=== PATIENT | female | born 1960 | race Caucasian/White ===

== ENCOUNTER 2019-12-28 13:43 | Outpatient (REF) | payer MEDICAID, SELFPAY ==
--- NOTE | 2019-12-29 10:30 | MHC.AU.P13 ---
Adult Audiological Evaluation Date of Visit: 12/28/19 Reason for Appointment: Patient has history of hearing loss. Her most recent evaluation on 04/13/2017 revealed normal/borderline hearing sloping to moderate sensorineural hearing loss bilaterally. Patient suspects there has been a change in hearing since her last evaluation. Ear History: Recent Ear Drainage: None Reported Recent Ear Pain: None Reported Family History of Hearing Loss?: Yes: Mother and Father History of occupational noise exposure?: No Medical History: Medical History: Degenerative Discs Hearing Instrument History- Right Ear: Crop Farm Helper: Phonak Model: Gigaom V50-M Serial Number: [id number] Battery Size: 312 Warranty: 09/07/2017 Dispensed By: [facility] Date of Fittin06/25/2015 Hearing Instrument History- Left Ear: Crop Farm Helper: [employer] Model: Gigaom V50-M Serial Number: [id number] Battery Size: 312 Warranty: 09/07/2017 Dispensed By: [facility] Date of Fittin06/25/2015 Otoscopy: Right Ear: Unremarkable Left Ear: Unremarkable Tympanometry: Right Ear: Normal Middle Ear System (Type A) Left Ear: Normal Middle Ear System (Type A) Hearing Evaluation: Transducer(s) Used: Insert Earphones, Bone Conduction Method: Conventional Audiometry Stimuli Used: Pure Tones Right Ear: Description of Hearing: Normal/borderline sloping to moderately-severe sensorineural hearing loss Left Ear: Description of Hearing: Normal/borderline sloping to moderately-severe sensorineural hearing loss Speech Recognition Threshold (SRT): Method Used: Recorded Lists Stimuli Used: Spondee Words Right Ear: 25 dBHL Left Ear: 25 dBHL Word Discrimination: Method: Recorded Lists Word Lists Used: NU-6 Right Ear: 96% at 65 dBHL Left Ear: 92% at 65 dBHL Most Comfortable Level (MCL): Right Ear: 65 dBHL Left Ear: 65 dBHL Comparison: Compared to the most recent evaluation: No significant changes in hearing Recommendations: Audiological re-evaluation in one year. Hearing aid maintenance as needed. Diagnosis: Primary Diagnosis: H90.3 Bilateral Sensorineural Hearing Loss Services Performed: Services Performed: Comprehensive Audiological Evaluation (CPT 78810) Tympanometry (CPT 21369) Signature: Provider: Dilcia Frankel, [facility]
== END 2019-12-28 13:44 | disposition home or self-care (01) ==
LOC: HO.SH 13:43
PROVIDERS: PCP Pediatrics; Referring Provider Pediatrics; Visit Provider Pediatrics
DX: H90.3 Sensorineural hearing loss, bilateral (principal)
CPT/HCPCS: 92557; 92567

== ENCOUNTER → 2021-09-04 14:03 | Outpatient (REF) | payer OTHER, SELFPAY ==
--- NOTE | 2021-09-04 14:10 | ECG_ITS ---
Hook-up date: 2021-09-04 13:24:00 Duration: 40:43:00 Test Indications: SYNCOPE COLLAPSE Medications: [id number] QRS complexes 1 Ventricular ectopics which represent <1 % of total QRS comp. 114 Supraventricular ectopics which represent <1 % of total QRS comp. * Paced QRS complexs which represent % of total QRS comp. VENTRICULAR ECTOPY 1 Isolated 0 Bigeminal Cycles 0 Couplets 0 Runs 0 Beats in Runs * Beats LONGEST at * BPM at :: -- * Beats FASTEST at * BPM at :: -- SUPRAVENTRICULAR ECTOPY 73 Isolated 5 Couplets 7 Runs 31 Beats in Runs 7 Beats LONGEST at 141 BPM at 23:03:53 2021-09-04 6 Beats FASTEST at 192 BPM at 15:51:49 2021-09-04 HEART RATES 63 MIN at 09:21:56 2021-09-05 81 AVG 127 MAX at 15:21:36 2021-09-04 LONGEST RR 1.0640 secs at 09:07:59 2021-09-05 S-T LEVELS Channel 1 - 128 mm at 13:24:00 2021-09-04 - 128 mm at 13:24:00 2021-09-04 Channel 2 - 128 mm at 13:24:00 2021-09-04 - 128 mm at 13:24:00 2021-09-04 Channel 3 - 128 mm at 03:24:31 -- - 128 mm at 03:24:31 Basic rhythm Normal sinus rhythm No long pause or profound bradycardia Rare Premature atrial complexes No dangerous dysrhythm periods Patient did not report any symptoms in the diary Referred By: Alyssa Campo Overread By: ANDRE AHN MD
== END ==
LOC: HO.CARD 14:03
PROVIDERS: PCP Pediatrics; Visit Provider Pediatrics
DX: R55 Syncope and collapse (principal)
CPT/HCPCS: 93226

== ENCOUNTER 2022-04-27 23:04 | Emergency (ER) | payer OTHER, SELFPAY ==
--- NOTE | ~2022-04-27 | CT_ITS ---
EXAMINATION: NONCONTRAST HEAD CT NONCONTRAST CERVICAL SPINE CT INDICATION INFORMATION: Trauma COMPARISON: None TECHNIQUE: Separate noncontrast CT examinations of the head and cervical spine were performed. Coronal and sagittal images were created for each examination at the technologist workstation. This CT examination was performed using dose optimization techniques as appropriate, variously including the following: *Automated exposure control *Adjustment of mA and/or kV according to patient size (this includes techniques or standardized protocols for targeted exams where dose is matched to indication/reason for exam; i.e. extremities or head) *Use of iterative reconstruction technique DLP: 941 mGy-cm FINDINGS: Head: There is no evidence of acute intracranial hemorrhage or territorial infarction. No abnormal mass effect or midline shift is seen. Montesinos to white matter differentiation is well preserved. No extra-axial fluid collections are identified. No hydrocephalus. No significant volume loss. There is no abnormal attenuation within the brain parenchyma. No acute osseous or soft tissue abnormality. The mastoid air cells and visualized portions of the paranasal sinuses are well aerated. Cervical spine: There is anatomic alignment of the vertebral bodies and posterior elements. The atlantoaxial and atlantooccipital articulations are intact. Vertebral body heights are maintained. There is multilevel intervertebral disc space narrowing with endplate osteophyte formation and facet arthropathy. No evidence of acute fracture. No prevertebral soft tissue swelling. Visualized portions of the lung apices are unremarkable. The thyroid gland is unremarkable. CT/CT cervical spine wo IV con IMPRESSION: 1. No acute intracranial finding. 2. No acute fracture or malalignment of the cervical spine. Moderate degenerative change.
--- NOTE | ~2022-04-27 | CT_ITS ---
EXAMINATION: NONCONTRAST HEAD CT NONCONTRAST CERVICAL SPINE CT INDICATION INFORMATION: Trauma COMPARISON: None TECHNIQUE: Separate noncontrast CT examinations of the head and cervical spine were performed. Coronal and sagittal images were created for each examination at the technologist workstation. This CT examination was performed using dose optimization techniques as appropriate, variously including the following: *Automated exposure control *Adjustment of mA and/or kV according to patient size (this includes techniques or standardized protocols for targeted exams where dose is matched to indication/reason for exam; i.e. extremities or head) *Use of iterative reconstruction technique DLP: 941 mGy-cm FINDINGS: Head: There is no evidence of acute intracranial hemorrhage or territorial infarction. No abnormal mass effect or midline shift is seen. Montesinos to white matter differentiation is well preserved. No extra-axial fluid collections are identified. No hydrocephalus. No significant volume loss. There is no abnormal attenuation within the brain parenchyma. No acute osseous or soft tissue abnormality. The mastoid air cells and visualized portions of the paranasal sinuses are well aerated. Cervical spine: There is anatomic alignment of the vertebral bodies and posterior elements. The atlantoaxial and atlantooccipital articulations are intact. Vertebral body heights are maintained. There is multilevel intervertebral disc space narrowing with endplate osteophyte formation and facet arthropathy. No evidence of acute fracture. No prevertebral soft tissue swelling. Visualized portions of the lung apices are unremarkable. The thyroid gland is unremarkable. CT/CT head/brain wo IV con IMPRESSION: 1. No acute intracranial finding. 2. No acute fracture or malalignment of the cervical spine. Moderate degenerative change.
[2022-04-27 23:05] VITALS: BP 107/72; PULSE 98; RESP 18; TEMP 36.6; O2SAT 98; BMI 23.7
--- NOTE | 2022-04-28 00:11 | ECG_ITS ---
Test Reason : cp Blood Pressure : / mmHG Vent. Rate : 062 BPM Atrial Rate : 062 BPM P-R Int : 132 ms QRS Dur : 074 ms QT Int : 398 ms P-R-T Axes : 042 042 061 degrees QTc Int : 403 ms Normal sinus rhythm Normal ECG When compared with ECG of 05-JUN-2003 06:50, T wave inversion no longer evident in Inferior leads Referred By: Skinny Montero Electronically Signed By:ANDRE AHN MD
--- NOTE | 2022-04-28 00:19 | ED.GENADULT ---
HPI - General Adult General Chief complaint: Head Injury Stated complaint: Fall/Head inj Time Seen by Provider: 04/27/22 23:58 Source: patient and RN notes reviewed Mode of arrival: ambulatory Limitations: no limitations History of Present Illness HPI narrative: 62-year-old female presents for evaluation of a head injury. Patient reports that around 11 hours ago she lost her balance and fell. Patient reports that she is generally fairly unsteady on her feet. She reports that she was in her blood his kitchen and struck the back of her head. She did not lose consciousness She reports when she fell [place] blood in the ground and she tried to clean the area herself but it would not stop bleeding for a couple of hours. She reports that she tried to go to Urgent Care but was told that she could not be seen at urgent care and to go to the emergency room. The patient then went home because ?I had some projects to do. ? She now presents to the emergency room due to the wound in the back of her head. She complains of a dull headache. Denies any nausea, vomiting, dizziness Related Data Allergies Allergy/AdvReac Type Severity Reaction Status Date / Time amoxicillin [AMOXICILLIN] Allergy Unknown RASH Verified 04/27/22 23:12 doxycycline [DOXYCYCLINE] Allergy Unknown RASH Verified 04/27/22 23:12 Doxycycline Hyclate Allergy Unknown Unknown Uncoded 04/27/22 23:12 Review of Systems Constitutional: Constitutional: Reports as per HPI, Denies chills, Denies fatigue, Denies fever(s) and Reports headache(s) ENT: Reports headache(s) Cardiovascular: Cardiovascular: Denies chest pain and Denies dyspnea Respiratory: Respiratory: Denies cough and Denies dyspnea Gastrointestinal: Gastrointestinal: Denies abdominal pain, Denies constipation and Denies vomiting Genitourinary: Genitourinary: Denies dysuria Neurologic: Reports headache(s) and Denies focal weakness Endocrine: Endocrine: Denies fatigue PMFSH Social History Social History Advance Directives: No Advance Directives Information Provided: No Physical Exam ED Vital Signs: Vital Signs - 24 hr 04/27/22 23:05 Temperature 97.9 F Pulse Rate 98 Respiratory Rate 18 Blood Pressure 107/72 Pulse Oximetry 98 Oxygen Delivery Method Room Air BMI result Body Mass Index 23.7 Const General: healthy appearing, comfortable, no acute distress, alert and awake Nutritional Appearance: well nourished Orientation/consciousness: patient oriented x3 HENTX Head: Yes normocephalic and Yes atraumatic Throat: Yes posterior oropharynx normal Eyes Eyelids: Yes eyelids normal Conjunctivae: conjunctivae normal Sclerae: sclerae normal Corneas: corneas normal Pupils: Equal, round and reactive pupils present EOM: EOMs intact bilaterally Neck Other: No cervical tenderness Neck: Yes full ROM Resp Effort & Inspection: normal respiratory effort, able to speak in complete sentences, no audible wheezes and not labored Auscultation: clear to auscultation bilaterally Cardio Rate: regular rate Rhythm: regular rhythm Skin Other: 5 cm linear posterior scalp laceration General skin exam: no rashes or lesions noted and elasticity normal Neuro General: patient oriented x3 Cranial nerves: Yes CN's II-XII intact bilaterally, Yes Equal, round and reactive pupils present and Yes Bilaterally intact EOM present Cognition (Neuro): normal cognition Motor exam (neuro): 5/5 motor strength present throughout Coordination: [id number] test normal Extrem Other: Moving all extremities well without any obvious deformities Medications Administered Discontinued Medications Generic Name Dose Route Start Last Admin Trade Name Khurram PRN Reason Stop Dose Admin Acetaminophen 650 mg 04/28/22 00:18 04/28/22 00:54 Acetaminophen 325 Mg Tablet PO 04/28/22 00:19 650 mg ONCE ONE Administration Lidocaine HCl 5 ml 04/28/22 00:11 04/28/22 00:55 Lidocaine Hcl 1 % Mpf 5 Ml Vial INFILTRATI 04/28/22 00:12 5 ml ONCE ONE Administration Procedures Laceration Laceration 1: Site: scalp (Posterior) Side (If applicable): left Size (cm): 5 Description: linear Depth: simple, single layer Local Anesthetic: lidocaine 1% Amount of anesthesia used (mL): 4 Pre-repair: wound explored and irrigated extensively Skin layer closed with: other (9 skin jennifer) Medical Decision Making Medical Decision Making MDM Narrative: 62-year-old female presents for evaluation after a fall that happened 11 hours ago. She denies any chest pain, shortness of breath leading to her fall. However she also denies tripping. She reports a history of falling due to ?losing my bowel pain? we will check basic labs, EKG and CT scan of the brain. Patient's wound was cleaned and will be closed with surgical jennifer. Differential Diagnosis Laceration Head trauma Concussion Intracranial hemorrhage Calvarial fracture Arrhythmia Vertigo Dehydration Lab Data [facility] Lab Attestation statement: I reviewed the patient's lab results. No significant lab abnormality 04/28/22 00:26 04/28/22 00:26 Labs: Lab Results 04/28/22 04/28/22 Range/Units 00:26 00:26 WBC 7.5 (4.8-10.8) X10*3/uL RBC 3.99 L (4.20-5.50) X10*6/uL Hgb 12.6 (12.0-16.0) g/dl Hct 38.5 (37.0-47.0) % MCV 96.5 (80.0-98.0) fL MCH 31.6 (27.0-33.0) pg MCHC 32.7 (31.0-35.0) g/dl RDW 13.1 (11.0-16.0) % Plt Count 225 (160-400) X10*3/uL MPV 10.1 (9.4-12.3) fL Immature Gran % (Auto) 0.1 (0.0-0.4) % Neut % (Auto) 70.4 (45-73) % Lymph % (Auto) 17.5 L (20-40) % [place] % (Auto) 8.5 (2-11) % Eos % (Auto) 2.7 (0-4) % Baso % (Auto) 0.8 (0-2) % Lymph # (Auto) 1.3 (1.2-4.9) X10*3/uL [place] # (Auto) 0.6 (0.1-1.2) X10*3/uL Eos # (Auto) 0.2 (0.0-0.4) X10*3/uL Baso # (Auto) 0.1 (0.0-0.2) X10*3/uL Abs Immat Gran (auto) 0.01 (0.00-0.03) X10*3/uL Absolute Neuts (auto) 5.3 (2.0-8.3) x10*3/uL Absolute Nucleated RBC 0.000 (0.0-0.012) X10*3/uL Nucleated RBC % (auto) 0.0 (0.0-0.2) /100WBC Sodium 144 (135-145) mmol/L Potassium 4.5 (3.3-5.1) mmol/L Chloride 104 (96-108) mmol/L Carbon Dioxide 29 (22-29) mmol/L Anion Gap 16 (12-20) BUN 11 (9-16) mg/dL Creatinine 0.74 (0.5-1.4) mg/dL Estim Creat Clear Calc 63.5 Estimated GFR > 60 Random Glucose 111 (60-115) mg/dL Calcium 9.4 (8.4-10.2) mg/dL Total Bilirubin 0.2 (0.0-1.0) mg/dL AST 20 (5-31) U/L ALT 11 (0-31) U/L Alkaline Phosphatase 75 (39-117) U/L Total Protein 6.0 L (6.5-8.0) g/dL Albumin 3.8 (3.5-5.0) g/dL Radiology Impression Discussion of test interpretation with radiology: I have reviewed the radiologist's reading. Radiologist Impression: No acute traumatic injury of the cervical spine or head/brain Discharge Plan Discharge Clinical Impression: Laceration of head Patient Disposition: Home, Self-Care Instructions: Head Laceration (ED) Additional Instructions: You had 9 jennifer placed today. Keep the wound clean and dry These can be removed in 7-10 days You can have that done here or by following up with your primary doctor Your blood work in the emergency department was reassuring. Your CAT scans did not show any evidence of injury
[2022-04-28 00:29] LABS: MANUAL DIFF FLAG NO
[2022-04-28 00:31] LABS: Basophils Absolute Auto 0.1 X10*3/uL (0.0-0.2); Basophils Percent Auto 0.8 % (0-2); Eosinophils Absolute Auto 0.2 X10*3/uL (0.0-0.4); Eosinophils Percent Auto 2.7 % (0-4); Hematocrit 38.5 % (37.0-47.0); Hemoglobin 12.6 g/dl (12.0-16.0); Imm Gran Abs Auto 0.01 X10*3/uL (0.00-0.03); Imm Gran Pct Auto 0.1 % (0.0-0.4); Lymphocytes Absolute Auto 1.3 X10*3/uL (1.2-4.9); Lymphocytes Percent Auto 17.5 % (20-40); Mean Corpuscular HGB Conc 32.7 g/dl (31.0-35.0); Mean Corpuscular Hemoglobin 31.6 pg (27.0-33.0); Mean Corpuscular Volume 96.5 fL (80.0-98.0); Mean Platelet Volume 10.1 fL (9.4-12.3); Monocytes Absolute Auto 0.6 X10*3/uL (0.1-1.2); Monocytes Percent Auto 8.5 % (2-11); Neutrophils Absolute Auto 5.3 x10*3/uL (2.0-8.3); Neutrophils Percent Auto 70.4 % (45-73); Platelet Count 225 X10*3/uL (160-400); Red Blood Count 3.99 X10*6/uL (4.20-5.50); Red Cell Distribution Width 13.1 % (11.0-16.0); White Blood Count 7.5 X10*3/uL (4.8-10.8)
[2022-04-28 00:47] LABS: Alanine Aminotransferase 11 U/L (0-31); Albumin Level 3.8 g/dL (3.5-5.0); Alkaline Phosphatase 75 U/L (39-117); Anion Gap 16 (12-20); Aspartate Amino Transferase 20 U/L (5-31); Bilirubin Total 0.2 mg/dL (0.0-1.0); Blood Urea Nitrogen 11 mg/dL (9-16); Calcium 9.4 mg/dL (8.4-10.2); Carbon Dioxide 29 mmol/L (22-29); Chloride 104 mmol/L (96-108); Creatinine Clr Calc Pharmacy 63.5; Estimated Glomerular Filt Rate > 60; Glucose Random 111 mg/dL (60-115); Potassium 4.5 mmol/L (3.3-5.1); Sodium 144 mmol/L (135-145)
[2022-04-28] MEDS: Acetaminophen 325 MG TABLET 650 MG PO (00:54)
[2022-04-28] MEDS: Lidocaine HCl 1 % MPF 5 ML VIAL INFILTRATI (00:55)
--- NOTE | 2022-04-28 01:20 | PC.NURSE ---
9 jennifer placed to back of head by provider. patient tolerated well
== END 2022-04-28 01:29 | disposition home or self-care (01) ==
PROVIDERS: Emergency Provider Emergency Medicine Emergency Medical Services; PCP Pediatrics
DX: S09.90XA Unspecified injury of head, initial encounter (principal); S01.01XA Laceration without foreign body of scalp, initial encounter; W19.XXXA Unspecified fall, initial encounter; Y93.9 Activity, unspecified; Y92.9 Unspecified place or not applicable; Y99.9 Unspecified external cause status
CPT/HCPCS: 12002; 36415; 70450; 72125; 80053; 85025; 93005; 99283; 99284

== ENCOUNTER → 2022-06-26 14:56 | Outpatient (REF) | payer OTHER, SELFPAY ==
--- NOTE | 2022-06-26 14:59 | CA_ITS ---
Transthoracic Echocardiogram Patient (Last, First, Middle): Chantal Alvares B Gender: Female Date of : 1960 Age: 62 Procedure Date: 06/26/2022 Procedure Type: Transthoracic Echocardiogram Location: OP Height: 162.56 cm Weight: 61.69 kg BSA: 1.66 m2 Heart Rate: bpm BP: 108 / 70 mmHg Electronic Plotting System Operator: MAURISIO Referring MD: Alyssa Campo MD Symptoms: [id number] SYNCOPE Study Quality: Adequate ECG Rhythm: Sinus Conclusions: - The left ventricular systolic function is normal. The calculated ejection fraction is 61% by biplane method. - No obvious valvular pathology seen on this study. - There is mild dilatation of the ascending aorta measuring 3.70 cm. Findings Left Ventricle Normal left ventricular cavity size. There is normal left ventricular wall thickness. The left ventricular systolic function is normal. The calculated ejection fraction is 61% by biplane method. There is no evidence of regional wall motion abnormalities. Diastolic function is normal for age. LV peak GLS -18.7%. Right Ventricle Normal right ventricular cavity size and systolic function. Atria Both atria are normal in size. Aortic Valve There is a normal trileaflet aortic valve. There is no aortic valve stenosis. There is no aortic valve regurgitation. Mitral Valve The mitral valve appears normal. There is no mitral valve regurgitation. There is no mitral valve stenosis. Pulmonic Valve The pulmonic valve is likely normal. Tricuspid Valve Normal tricuspid valve structure. There is mild tricuspid valve regurgitation. There is no evidence of pulmonary hypertension. Great Vessels There is mild dilatation of the ascending aorta measuring 3.70 cm. Venous The inferior vena cava is normal in size and collapses greater than 50% with inspiration. Pericardium/Pleural There is no evidence of pericardial effusion. Prior Study Comparison No significant change compared to prior study dated: 06/05/2003. Ascending aortic size not previously described. Recommendations, Care & Conclusions No obvious valvular pathology seen on this study. Measurements 2D Linear Measurements IVSd: 0.91 0.6-0.9/0.6-1.0 cm LVIDd: 3.95 3.9-5.3/4.2-5.9 cm LVIDd Index: 2.38 2.4-3.2/2.2-3.1 cm/m2 LVIDs: 2.63 2.0-3.6 cm LVPWd: 0.93 0.7-1.1 cm LA Diam: 2.60 2.7-3.8/3.0-4.0 cm LAIDs Index: 1.57 1.5-2.3 cm/m2 LV Mass: 137.98 67-162/88-224 g LV Mass Index: 83.12 43-95/49-115 g/m2 LVOT Diam: 2.10 3.0+(-)1.3 cm 2D Systolic Function EF 4C: 61.90 >55% EF 2C: 61.40 >55% EF BiP: 60.60 >55% Mitral Valve MV Pk E: 0.67 MV PK A: 0.70 MV Decel Time: 224.00 E/A: 1.00 E'Lateral: 11.90 E'Medial: 6.09 E/E' Med: 11.10 E/E' Lat: 5.70 PHT: 66.00 MVA PHT: 3.33 Decel [place]: 3.00 Aortic Valve AoV Pk Jacek: 1.25 AoV Mn Jacek: 0.94 AoV VTI: 0.29 AoV Pk Grad: 6.00 Aov Mn Grad: 4.00 PHAM Cont.VTI: 2.84 LVOT LVOT Pk Jacek: 1.22 LVOT Mn Jacek: 0.76 LVOT VTI: 0.24 LVOT Pk Grad: 6.00 LVOT Mn Grad: 3.00 LVOT Diam: 2.10 LVOT Area: 3.46 Diastolic Function MV Pk E: 0.67 MV Pk A: 0.70 E/A: 1.00 E'Medial: 6.09 E/E' Med: 11.10 E' Laterial: 11.90 E/E' Lat: 5.70 Right Ventricle TAPSE (mm): 20.00 TVS' Jacek: 13.10 Tricuspid Valve TR Pk Jacek: 1.90 TR Pk Grad: 14.00 RA Press: 3.00 RVSP: 17.00 Great Vessels Aorta Sinus of Valsalva: 3.28 2.0-3.[address] [place]: 3.15 1.7-3.4 cm Ao Asc: 3.70 2.1-3.4 cm Updated in Other Vendor System with Status of Final Jose David García MD electronically signed on 06/26/2022 4:24:18 PM with status of Final
== END ==
LOC: HO.CARD 14:56
PROVIDERS: PCP Pediatrics; Visit Provider Pediatrics
DX: R55 Syncope and collapse (principal)
CPT/HCPCS: 93306; 93356

== ENCOUNTER 2022-10-27 04:30 | Emergency (ER) | payer OTHER, SELFPAY ==
--- NOTE | ~2022-10-27 | CT_ITS ---
EXAMINATION: CT HEAD WITHOUT CONTRAST CT CERVICAL SPINE WITHOUT CONTRAST CLINICAL INFORMATION: Fall. Pain. COMPARISON: None available. TECHNIQUE: Contiguous axial imaging was performed from the skull base to vertex without intravenous administration of contrast. This CT examination was performed using dose optimization techniques as appropriate, variously including the following: *Automated exposure control *Adjustment of mA and/or kV according to patient size (this includes techniques or standardized protocols for targeted exams where dose is matched to indication/reason for exam; i.e. extremities or head) *Use of iterative reconstruction technique DLP: 883 mGy-cm FINDINGS: The lateral, third and fourth ventricles are normally outlined. The cortical sulci and basal cisterns are normally outlined as well. There is no acute territorial, hemorrhage or midline shift. The extra-axial spaces are unremarkable. Calvarium: Intact. There is apparent left forehead mild soft tissue swelling and laceration. Maxillofacial sinuses and mastoids: Clear as visualized. Cervical spine: There is reversal of the expected cervical spine curvature. There is moderate cervical disc degenerative change seen at C3-C4, C5-C6 and C6-C7 and mild degenerative change of the remaining cervical spine with loss of disc space, endplate change and posterior osteophytes associated with facet osteoarthritic hypertrophic change with multilevel mild spinal canal and neuroforaminal narrowing. There is no fracture. The soft tissues are unremarkable. The upper lung stephenson are clear. CT/CT head/brain wo IV con IMPRESSION: No acute intracranial abnormality. Cervical disc degenerative change with reversal of the expected cervical spine curvature. No fracture seen.
--- NOTE | ~2022-10-27 | CT_ITS ---
EXAMINATION: CT HEAD WITHOUT CONTRAST CT CERVICAL SPINE WITHOUT CONTRAST CLINICAL INFORMATION: Fall. Pain. COMPARISON: None available. TECHNIQUE: Contiguous axial imaging was performed from the skull base to vertex without intravenous administration of contrast. This CT examination was performed using dose optimization techniques as appropriate, variously including the following: *Automated exposure control *Adjustment of mA and/or kV according to patient size (this includes techniques or standardized protocols for targeted exams where dose is matched to indication/reason for exam; i.e. extremities or head) *Use of iterative reconstruction technique DLP: 883 mGy-cm FINDINGS: The lateral, third and fourth ventricles are normally outlined. The cortical sulci and basal cisterns are normally outlined as well. There is no acute territorial, hemorrhage or midline shift. The extra-axial spaces are unremarkable. Calvarium: Intact. There is apparent left forehead mild soft tissue swelling and laceration. Maxillofacial sinuses and mastoids: Clear as visualized. Cervical spine: There is reversal of the expected cervical spine curvature. There is moderate cervical disc degenerative change seen at C3-C4, C5-C6 and C6-C7 and mild degenerative change of the remaining cervical spine with loss of disc space, endplate change and posterior osteophytes associated with facet osteoarthritic hypertrophic change with multilevel mild spinal canal and neuroforaminal narrowing. There is no fracture. The soft tissues are unremarkable. The upper lung stephenson are clear. CT/CT cervical spine wo IV con IMPRESSION: No acute intracranial abnormality. Cervical disc degenerative change with reversal of the expected cervical spine curvature. No fracture seen.
[2022-10-27 04:39] VITALS: BP 133/85; PULSE 77; RESP 18; TEMP 36.4; O2SAT 98; BMI 22.5
[2022-10-27 05:20] VITALS: BP 124/77; PULSE 67; RESP 14; TEMP 36.6; O2SAT 99
--- NOTE | 2022-10-27 05:20 | PC.NURSE ---
Pt ca&ox4, no signs of distress. Pt reports 7/10 head and body pain. Pt has approximately a 1 laceration on forehead. Vitals stable. Pt denies LOC, N/V/dizziness. Plan of care ongoing.
--- NOTE | 2022-10-27 06:55 | ED.HEATRA ---
HPI - Head Injury General Chief complaint: Head Injury Stated complaint: Fall/Head Inj Time Seen by Provider: 10/27/22 06:37 Source: patient, RN notes reviewed and old records reviewed Mode of arrival: ambulatory History of Present Illness HPI Narrative: 62 year old female with no significant past medical history presenting to the ED complaining of facial laceration s/p mechanical trip and fall around 03:00AM. States tripped and fell over something in the garage while she was looking for cat that she accidentally let out. + head trauma, denies LOC or taking anticoagulation. Ambulatory at scene. Reports diffuse myalgias, nonfocal. Denies neck /back pain, abdominal pain, CP/ SOB, nausea/ vomiting. Denies symptoms prior to fall. Tetanus 8 years ago MD Complaint: head injury Related Data Allergies Allergy/AdvReac Type Severity Reaction Status Date / Time amoxicillin [AMOXICILLIN] Allergy Unknown RASH Verified 10/27/22 04:39 doxycycline [DOXYCYCLINE] Allergy Unknown RASH Verified 10/27/22 04:39 Doxycycline Hyclate Allergy Unknown Unknown Uncoded 10/27/22 04:39 Review of Systems Review of Systems: Constitutional: No Fever, No Chills, No Fatigue, No Malaise ENT/Mouth: No Ear Pain, No Nasal Congestion, No sore throat, No Rhinorrhea, No Swallowing Difficulty Eyes: No Eye Pain, No Swelling, No Redness, No Vision Changes Cardiovascular: No Chest Pain, No SOB, No Edema, No Palpitations Respiratory: No Cough, No Sputum, o Dyspnea Gastrointestinal: No Nausea, No Vomiting, No Diarrhea, No Constipation, No Abdominal pain Genitourinary: No Dysuria, No Urinary Frequency, No Hematuria Musculoskeletal: No joint pain, No Myalgias, No Joint Swelling Skin: No Skin Lesions, No rash Neuro: No Weakness, No Loss of Consciousness, No Dizziness, + Headache Yes all other systems are reviewed and are negative Constitutional: Constitutional: Reports as per HPI Neurologic: Denies Abnormal speech present [facility] Past Medical History Attestation statement: The following information was validated with the patient. Source: old records reviewed Social History Social History Smoked in Last 30 Days: No Use of substances other than those prescribed or required for medical reasons: No Advance Directives: No Advance Directives Information Provided: No Physical Exam Vital Signs: Vital Signs: Last Vital Signs Temp 97.7 F 10/27/22 07:07 Pulse 94 10/27/22 07:07 Resp 18 10/27/22 07:07 BP 122/89 10/27/22 07:07 Pulse Ox 98 10/27/22 07:07 O2 Del Method Room Air 10/27/22 07:07 BMI result Body Mass Index 22.5 Const: General: cooperative, healthy appearing and no acute distress Orientation/consciousness: patient oriented x3 Limitations: no limitations HEENT: Other: 1cm linear laceration noted to central forehead. Bleeding controlled. Underlying structures appear intact. No palpable step-off Head: Yes normal to inspection, Yes atraumatic, No Garcia's sign and No raccoon eyes Ears: hearing grossly normal bilaterally General nose exam: Normal external nose present Face and sinus: Yes normal facial exam Mouth: Normal oral and palatal mucosa present Throat: Yes posterior oropharynx normal Eyes: General: appearance normal, both eyes and all related structures Pupils: Equal, round and reactive pupils present EOM: EOMs intact bilaterally Neck: Neck: Yes normal visual inspection, Yes no meningeal signs and No anterior neck swelling Resp: Effort & Inspection: normal respiratory effort and no respiratory distress Cardio: Rate: regular rate Heart sounds: S1 normal heart sound present and S2 normal heart sound present GI: Inspection: Yes normal to inspection Palpation (GI): Soft to palpation, nontender, no guarding and not rigid : General: Yes no CVA tenderness Back/Spine/Pelvis: Other: No midline cervical/thoracic/lumbar spinous tenderness/step-off or deformity Back: no CVA tenderness Skin: Rashes: no rashes Wounds: no wounds Neuro: General: patient oriented x3, gait normal, tone normal, moves all extremities, no meningeal signs, no focal motor deficits and CN's II-XI intact bilaterally Cranial nerves: Yes CN's II-XII intact bilaterally and Yes Equal, round and reactive pupils present Cognition (Neuro): normal cognition Speech: No Abnormal speech present Gait exam (Neuro): Normal gait present Extrem: General: Yes normal to inspection Course Course Course Narrative: 0733--CT head/brain wo IV con/CT cervical spine wo IV con IMPRESSION: No acute intracranial abnormality. Cervical disc degenerative change with reversal of the expected cervical spine curvature. No fracture seen. Results discussed with patient including worrisome signs and symptoms and strict return precautions, and when to return to the emergency department. They verbalized understanding and feel safe for discharge at this time. Medications Administered Discontinued Medications Generic Name Dose Route Start Last Admin Trade Name Khurram PRN Reason Stop Dose Admin Diphtheria/Tetanus/Acell Pertussis 0.5 ml 10/27/22 06:54 10/27/22 08:09 Diphth,Pertus(Acell),Tet Adult 0.5 Ml Syringe IM 10/27/22 06:55 Not Given .ONCE ONE Lidocaine HCl 2 ml 10/27/22 06:54 10/27/22 08:10 Lidocaine Hcl 1 % Mpf 2 Ml Vial INFILTRATI 10/27/22 06:55 2 ml ONCE ONE Administration Medical Decision Making Medical Decision Making MDM Narrative: 62 year old female with no significant past medical history presenting to the ED complaining of facial laceration s/p mechanical trip and fall around 03:00AM. On exam vital signs stable, NAD, nontoxic appearing, physical exam as noted above with small laceration to central forehead. No midline spinous tenderness throughout or midline spinous tenderness. Ambulating with steady gait. Concern for laceration vs fracture/ ICH. Lower suspicion for syncope, seizure. plan: Head/ C-spine CT, repair wound, update tetanus Please refer to course for remaining clinical decision making, interpretation of labs/imaging results, and discussions with consultants and/or family members. Differential Diagnosis Differential Diagnoses: The differential diagnosis associated with the presentation includes As above Admission/Observation Consideration of admission/observation: Escalation of care including admission/observation considered Lab Data [facility] Lab Attestation statement: I reviewed the patient's lab results. Independent Interpretation I performed an independent interpretation of an: CT Scan Radiology Impression Discussion of test interpretation with radiology: I have reviewed the radiologist's reading. External Record Review External record reviewed: Inpatient record, Office record, Outpatient record, Prior outpatient labs, Prior outpatient radiology, Primary care record and Outside ED record Tests considered The following testing was considered but not selected: As above Prescription Management I considered prescription management with: Pain Medication Procedures Laceration Laceration 1: Site: face Size (cm): 1 Description: linear Depth: simple, single layer Local Anesthetic: lidocaine 1% Amount of anesthesia used (mL): 1 Pre-repair: wound explored Skin layer closed with: nylon Size (cm): 6-0 Number of sutures: 3 Technique: simple, interrupted Discharge Plan Discharge Clinical Impression: Head injury, Facial laceration Patient Disposition: Home, Self-Care Instructions: Laceration (DC), Head Injury (ED) Additional Instructions: Your wounds were repaired today in the emergency department. Keep dry and clean. You need to return to any emergency department, urgent care, or your PCPs office in 3-5 days for suture removal Apply bacitracin and or Neosporin daily Once sutures are removed apply anti scar cream like Mederma If area begins look infected, is red, there is drainage, streaking, or you have fever please return to the emergency department Referrals: Alyssa Campo MD [Primary Care Provider] - 3 days (3-5 days for suture removal) Interventions: ED Discharge Assessment Last Done: 10/27/22 08:23 Discharge Date/Time: 10/27/22 08:24
--- NOTE | 2022-10-27 07:00 | PC.NURSE ---
Handoff Report given to oncoming RN.
[2022-10-27 07:07] VITALS: BP 122/89; PULSE 94; RESP 18; TEMP 36.5; O2SAT 98
--- NOTE | 2022-10-27 07:12 | PC.NURSE ---
pt a&ox3. respirations even and unlabored. pt reports having 10/10 head pain due to a small laceration on her head from a fall. pt nuero assessment positive.
[2022-10-27] MEDS: Lidocaine HCl 1 % MPF 2 ML VIAL INFILTRATI (08:10)
== END 2022-10-27 08:24 | disposition home or self-care (01) ==
PROVIDERS: Emergency Provider Emergency Medicine Emergency Medical Services; PCP Pediatrics
DX: S01.81XA Laceration without foreign body of other part of head, initial encounter (principal); R51.9 Headache, unspecified; M54.2 Cervicalgia; W01.10XA Fall on same level from slipping, tripping and stumbling with subsequent striking against unspecified object, initial encounter; Y93.9 Activity, unspecified; Y92.9 Unspecified place or not applicable; Y99.9 Unspecified external cause status
CPT/HCPCS: 12011; 70450; 72125; 99284

== ENCOUNTER 2023-09-02 15:17 | Outpatient (REF) | payer OTHER, SELFPAY ==
--- NOTE | ~2023-09-02 | XR_ITS ---
EXAMINATION: XR CHEST CLINICAL INFORMATION: Cough COMPARISON: Chest x-rays of 07/15/2019, 03/11/2010 TECHNIQUE: 2 views of the chest were obtained. FINDINGS: Cardiomediastinal silhouette is stable and normal. No abnormal tracheal deviation. Minimal S-shaped curvature of the thoracic lumbar spine is again noted. Lungs are symmetrically adequately expanded. No focal consolidation, changes of congestion, pleural effusions or pneumothorax are seen. Arthritic changes are noted in the bilateral acromioclavicular articulations. Visualized upper abdomen is unremarkable.. XR/XR chest 2V IMPRESSION: No radiographic evidence of pneumonia. No acute pulmonary process.
[2023-09-02 15:41] LABS: MANUAL DIFF FLAG NO
[2023-09-02 16:02] LABS: Basophils Absolute Auto 0.1 X10*3/uL (0.0-0.2); Basophils Percent Auto 1.2 % (0-2); Eosinophils Absolute Auto 0.2 X10*3/uL (0.0-0.4); Eosinophils Percent Auto 4.1 % (0-4); Hematocrit 39.8 % (37.0-47.0); Hemoglobin 13.2 g/dl (12.0-16.0); Imm Gran Abs Auto 0.01 X10*3/uL (0.00-0.03); Imm Gran Pct Auto 0.2 % (0.0-0.4); Lymphocytes Absolute Auto 1.2 X10*3/uL (1.2-4.9); Lymphocytes Percent Auto 29.9 % (20-40); Mean Corpuscular HGB Conc 33.2 g/dl (31.0-35.0); Mean Corpuscular Hemoglobin 32.2 pg (27.0-33.0); Mean Corpuscular Volume 97.1 fL (80.0-98.0); Mean Platelet Volume 10.2 fL (9.4-12.3); Monocytes Absolute Auto 0.4 X10*3/uL (0.1-1.2); Monocytes Percent Auto 8.5 % (2-11); Neutrophils Absolute Auto 2.3 x10*3/uL (2.0-8.3); Neutrophils Percent Auto 56.1 % (45-73); Platelet Count 238 X10*3/uL (160-400); Red Cell Distribution Width 12.9 % (11.0-16.0); White Blood Count 4.1 X10*3/uL (4.8-10.8)
[2023-09-02 17:08] LABS: Alanine Aminotransferase 10 U/L (0-31); Alkaline Phosphatase 49 U/L (39-117); Anion Gap 12 (12-20); Aspartate Amino Transferase 22 U/L (5-31); Bilirubin Direct 0.1 mg/dL (0.0-0.5); Bilirubin Total 0.6 mg/dL (0.0-1.0); Blood Urea Nitrogen 23 mg/dL (9-16); Calcium 9.4 mg/dL (8.4-10.2); Carbon Dioxide 30 mmol/L (22-29); Chloride 107 mmol/L (96-108); Cholesterol 213 mg/dL (<200); Estimated Glomerular Filt Rate > 60; Glucose Random 90 mg/dL (60-115); HDL Cholesterol 56 mg/dL (>40); LDL Cholesterol Calculated 140 mg/dL (<100); Potassium 4.7 mmol/L (3.3-5.1); Sodium 144 mmol/L (135-145); Total Protein 6.3 g/dL (6.5-8.0); Triglycerides 88 mg/dL (<150)
[2023-09-02 17:15] LABS: TSH reflex Free T4 0.48 uIU/mL (0.32-4.0); Vitamin D 25-OH Total 33.2 ng/mL (>30)
[2023-09-02 17:19] LABS: Vitamin B12 377 pg/mL (200-900)
[2023-09-02 18:13] LABS: Appearance Urine Clear; Color Urine Yellow; Glucose Urine UA Negative (Negative); Leukocyte Esterase Urine Negative (Negative); Nitrite Urine Negative (Negative); PH 8.5 (5.0-9.0); Urine Blood Negative (Negative); Urine Ketones Negative (Negative); Urine Protein Negative (Neg-Trace)
== END 2023-09-02 15:18 | disposition home or self-care (01) ==
LOC: HO.LAB 15:17
PROVIDERS: Absent Provider Pediatrics; PCP Pediatrics; Visit Provider Internal Medicine
DX: H91.93 Unspecified hearing loss, bilateral (principal); F41.1 Generalized anxiety disorder; R05.9 Cough, unspecified; Z20.2 Contact with and (suspected) exposure to infections with a predominantly sexual mode of transmission
CPT/HCPCS: 36415; 71046; 80048; 80061; 80076; 81003; 82306; 82607; 84443; 85025

== ENCOUNTER 2023-10-16 18:54 | Emergency (ER) | payer OTHER, SELFPAY ==
[2023-10-16] VITALS (7 sets, daily range): BP systolic 119–141; BP diastolic 74–90; PULSE 72–90; RESP 16–18; TEMP 36.6–37.1; O2SAT 97–100; BMI 27.0
--- NOTE | ~2023-10-16 | CT_ITS ---
EXAMINATION: CT HEAD WITHOUT CONTRAST CLINICAL INFORMATION: Fall. COMPARISON: Head CT dated 10/27/2022. TECHNIQUE: Contiguous axial imaging was performed from the skullbase to vertex without intravenous administration of contrast. This CT examination was performed using dose optimization techniques as appropriate, variously including the following: *Automated exposure control *Adjustment of mA and/or kV according to patient size (this includes techniques or standardized protocols for targeted exams where dose is matched to indication/reason for exam; i.e. extremities or head) *Use of iterative reconstruction technique DLP: 625 mGy-cm. FINDINGS: There is no evidence of acute intracranial hemorrhage or territorial infarction. No abnormal mass effect or midline shift is seen. Montesinos to white matter differentiation is well preserved. No extra-axial fluid collections are identified. The ventricles are normal in size. There is no abnormal attenuation within the brain parenchyma. The osseous structures and soft tissues are normal. Mild ethmoid sinus mucosal thickening noted. The mastoid air cells are well aerated. CT/CT head/brain wo IV con IMPRESSION: No acute intracranial pathology. Electronically signed by: Huan Carpio MD 10/16/2023 08:48 PM EDT
--- NOTE | 2023-10-16 19:03 | ECG_ITS ---
Test Reason : FALL Blood Pressure : / mmHG Vent. Rate : 072 BPM Atrial Rate : 072 BPM P-R Int : 136 ms QRS Dur : 068 ms QT Int : 384 ms P-R-T Axes : 051 035 049 degrees QTc Int : 420 ms Normal sinus rhythm Normal ECG When compared with ECG of 28-APR-2022 01:09, No significant change was found Referred By: Gardenia Abdul Electronically Signed By:RUTH ANAYA
--- NOTE | 2023-10-16 19:14 | ED.SYNCOPE ---
HPI - Syncope General Chief Complaint: Fall Stated Complaint: SYNCOPE WHILE SHOPPING,+ HEAD STRIKE, -THINNERS Time Seen by Provider: 10/16/23 19:08 Source: patient Mode of arrival: ambulatory Limitations: no limitations History of Present Illness ED Provider: fredy RUFFIN narrative: Patient's history of vasovagal syncope had detailed workup done in the passing including director of medical education neurologist and PCP and diagnose as vasovagal advised to drink plenty of fluids today patient was shopping while in store fell lightheaded slumped down holding the cart and then hit her head to the ground came with slight swelling of the right eyebrow fall was witnessed by a bystander no seizure noticed. Patient is back to normal now Related Data Allergies Allergy/AdvReac Type Severity Reaction Status Date / Time amoxicillin [AMOXICILLIN] Allergy Unknown RASH Verified 10/16/23 19:27 doxycycline [DOXYCYCLINE] Allergy Unknown RASH Verified 10/16/23 19:27 Doxycycline Hyclate Allergy Unknown Unknown Uncoded 10/16/23 19:27 Review of Systems Review of Systems: Yes all other systems are reviewed and are negative [facility] Social History Social History Smoked in Last 30 Days: No Advance Directives: No Advance Directives Information Provided: No Do you have a plan to hurt others: No Plan Physical Exam Vital Signs: Vital Signs: Last Vital Signs Temp 97.8 F 10/16/23 22:06 Pulse 86 10/16/23 22:06 Resp 16 10/16/23 22:06 BP 119/74 10/16/23 22:06 Pulse Ox 100 10/16/23 22:06 O2 Del Method Room Air 10/16/23 22:06 BMI result Body Mass Index 27.0 Appearance: Alert. Oriented X3. No acute distress. Eyes: PERRLA, No Nystagmus EOMI ENT: Pharynx normal. Oral Mucosa moist slight swelling of the right eyebrow Neck: Normal inspection. Neck supple. No midline tenderness CVS: Normal heart rate and rhythm. Pulses normal. Respiratory: No respiratory distress. Equal air entry bilateral, no wheezing/rales/rhonchi Abdomen: Soft and nontender. Bowel sounds are present, no mass palpable, no CVA tenderness Skin: Skin warm and dry. Normal skin color. Normal skin turgor. Extremities: No lower extremity edema. No calf tenderness Neuro: Oriented X 3. No motor deficit. No sensory deficit.No cerebellar signs , cranial nerves II-XII intact Medical Decision Making Medical Decision Making [facility] Narrative: Patient with frequent vasovagal syncope episode with previous cardiac workup normal patient advised to drink plenty of fluids cardiac workup today also negative with normal orthostatic pressures discharge patient home advised to drink plenty of fluids and follow with director of medical education Differential Diagnosis Differential Diagnoses: The differential diagnosis associated with the presentation includes Lab Data [facility] Lab Attestation statement: I reviewed the patient's lab results. 10/16/23 19:32 10/16/23 19:32 Labs: Lab Results 10/16/23 Range/Units 19:32 WBC 5.6 (4.8-10.8) X10*3/uL RBC 4.00 L (4.20-5.50) X10*6/uL Hgb 13.0 (12.0-16.0) g/dl Hct 38.5 (37.0-47.0) % MCV 96.3 (80.0-98.0) fL MCH 32.5 (27.0-33.0) pg MCHC 33.8 (31.0-35.0) g/dl RDW 13.2 (11.0-16.0) % Plt Count 238 (160-400) X10*3/uL MPV 9.8 (9.4-12.3) fL Immature Gran % (Auto) 0.2 (0.0-0.4) % Neut % (Auto) 62.4 (45-73) % Lymph % (Auto) 24.5 (20-40) % Geary % (Auto) 7.4 (2-11) % Eos % (Auto) 4.3 H (0-4) % Baso % (Auto) 1.2 (0-2) % Lymph # (Auto) 1.4 (1.2-4.9) X10*3/uL Geary # (Auto) 0.4 (0.1-1.2) X10*3/uL Eos # (Auto) 0.2 (0.0-0.4) X10*3/uL Baso # (Auto) 0.1 (0.0-0.2) X10*3/uL Abs Immat Gran (auto) 0.01 (0.00-0.03) X10*3/uL Absolute Neuts (auto) 3.5 (2.0-8.3) x10*3/uL Absolute Nucleated RBC 0.000 (0.0-0.012) X10*3/uL Nucleated RBC % (auto) 0.0 (0.0-0.2) /100WBC Sodium 140 (135-145) mmol/L Potassium 4.5 (3.3-5.1) mmol/L Chloride 105 (96-108) mmol/L Carbon Dioxide 28 (22-29) mmol/L Anion Gap 12 (12-20) BUN 13 (9-16) mg/dL Creatinine 0.66 (0.5-1.4) mg/dL Estim Creat Clear Calc 70.3 Estimated GFR > 60 Random Glucose 102 (60-115) mg/dL Calcium 9.8 (8.4-10.2) mg/dL Magnesium 2.3 (1.6-2.6) mg/dL Total Bilirubin 0.2 (0.0-1.0) mg/dL AST 22 (5-31) U/L ALT 13 (0-31) U/L Alkaline Phosphatase 59 (39-117) U/L Troponin I High Sens < 2.7 (<3.5-17.0) ng/L Total Protein 6.3 L (6.5-8.0) g/dL Albumin 3.8 (3.5-5.0) g/dL Independent Interpretation I performed an independent interpretation of an: EKG and CT Scan Interpretation: Normal sinus rhythm heart rate 72 beats per minute normal interval normal axis no acute ST-T changes no acute ischemia Radiology Impression Discussion of test interpretation with radiology: I have reviewed the radiologist's reading. Discharge Plan Discharge Clinical Impression: Vasovagal near syncope Patient Disposition: Home, Self-Care Instructions: Syncope (ED) Additional Instructions: Drink plenty of fluids Follow up with your director of medical education/PCP Interventions: ED Discharge Assessment Last Done: 10/16/23 22:06 Discharge Date/Time: 10/16/23 22:07 Print Language: Korean
[2023-10-16 19:37] LABS: Basophils Absolute Auto 0.1 X10*3/uL (0.0-0.2); Basophils Percent Auto 1.2 % (0-2); Eosinophils Absolute Auto 0.2 X10*3/uL (0.0-0.4); Eosinophils Percent Auto 4.3 % (0-4); Hematocrit 38.5 % (37.0-47.0); Imm Gran Abs Auto 0.01 X10*3/uL (0.00-0.03); Imm Gran Pct Auto 0.2 % (0.0-0.4); Lymphocytes Absolute Auto 1.4 X10*3/uL (1.2-4.9); Lymphocytes Percent Auto 24.5 % (20-40); MANUAL DIFF FLAG NO; Mean Corpuscular HGB Conc 33.8 g/dl (31.0-35.0); Mean Corpuscular Hemoglobin 32.5 pg (27.0-33.0); Mean Corpuscular Volume 96.3 fL (80.0-98.0); Mean Platelet Volume 9.8 fL (9.4-12.3); Monocytes Absolute Auto 0.4 X10*3/uL (0.1-1.2); Monocytes Percent Auto 7.4 % (2-11); Neutrophils Absolute Auto 3.5 x10*3/uL (2.0-8.3); Neutrophils Percent Auto 62.4 % (45-73); Platelet Count 238 X10*3/uL (160-400); Red Cell Distribution Width 13.2 % (11.0-16.0); White Blood Count 5.6 X10*3/uL (4.8-10.8)
[2023-10-16 19:57] LABS: Alanine Aminotransferase 13 U/L (0-31); Albumin Level 3.8 g/dL (3.5-5.0); Alkaline Phosphatase 59 U/L (39-117); Anion Gap 12 (12-20); Aspartate Amino Transferase 22 U/L (5-31); Blood Urea Nitrogen 13 mg/dL (9-16); Calcium 9.8 mg/dL (8.4-10.2); Carbon Dioxide 28 mmol/L (22-29); Chloride 105 mmol/L (96-108); Creatinine Clr Calc Pharmacy 70.3; Estimated Glomerular Filt Rate > 60; Glucose Random 102 mg/dL (60-115); Magnesium 2.3 mg/dL (1.6-2.6); Potassium 4.5 mmol/L (3.3-5.1); Sodium 140 mmol/L (135-145); Total Protein 6.3 g/dL (6.5-8.0)
[2023-10-16 20:03] LABS: Troponin-I High Sensitivity < 2.7 ng/L (<3.5-17.0)
[2023-10-16 20:20] LABS: Bilirubin Total 0.2 mg/dL (0.0-1.0)
== END 2023-10-16 22:07 | disposition home or self-care (01) ==
PROVIDERS: Physician Assistant Medical; Emergency Provider Internal Medicine; PCP Pediatrics
DX: R55 Syncope and collapse (principal)
CPT/HCPCS: 36415; 70450; 80053; 83735; 84484; 85025; 93005; 99284; 99285

== ENCOUNTER → 2023-11-11 13:59 | Outpatient (BNV) | payer OTHER, SELFPAY | PROVIDERS: PCP Pediatrics; Visit Provider Radiology Diagnostic Radiology | DX: R55 Syncope and collapse (principal) | CPT/HCPCS: 70553 ==

== ENCOUNTER 2023-11-11 14:00 | Outpatient (REF) | payer OTHER, SELFPAY ==
--- NOTE | ~2023-11-11 | MR_ITS ---
EXAMINATION: MR BRAIN WITHOUT AND WITH CONTRAST CLINICAL INFORMATION: Multiple syncopal episodes, low blood pressure. Cardiac and stroke workup. 63-year-old female. COMPARISON: No prior MRI. CT head 10/16/2023, 04/28/2022. TECHNIQUE: Multiplanar, multisequence MRI of the brain was obtained before and after the intravenous administration of 6 mL IV Gadavist. Examination performed on a 1.5 Iesha Siemens magnet using standard sequences. FINDINGS: There is no diffusion restriction. There is no intracranial hemorrhage, acute infarction, mass effect, or edema. Ventricles, sulci, and cisterns are normal in size and configuration for patient age. No shift of midline. No abnormal hemosiderin deposition is identified. There are a few scattered punctate and minimally confluent foci of white matter T2 hyperintensity in the periventricular, subcortical, and hemispheric deep white matter, nonspecific, but most likely on the basis of mild small vessel ischemic changes. After the administration of contrast, there is no abnormal intra or extra-axial contrast enhancement. Midline structures appear normally formed. The pituitary gland appears normal. Posterior fossa structures appear normal. Cerebellar tonsils are appropriately located. Major flow voids are preserved within the skull base. The globes and orbital contents demonstrate no abnormalities. Paranasal sinuses are clear bilaterally. Nasal septum is midline without spur. The mastoids and tympanic cavities are normally aerated. Extracranial soft tissues demonstrate no abnormalities. No suspicious bone marrow changes are evident. Atlantoaxial joint demonstrates mild degenerative arthrosis. MR/MR head/brain wo/w con IMPRESSION: 1. No evidence of intracranial hemorrhage, acute infarction, mass effect, edema, or abnormal contrast enhancement. 2. Mild changes of small vessel ischemia. 3. Age-appropriate brain volume. Electronically signed by: Gurwinder Patterson MD 11/27/2023 03:46 PM EDT
[2023-11-11] MEDS: gadobutroL 7.5 ML VIAL IVPUSH (15:49)
== END 2023-11-11 14:01 | disposition home or self-care (01) ==
LOC: HO.MRI 14:00
PROVIDERS: PCP Pediatrics; Visit Provider Pediatrics
DX: R55 Syncope and collapse (principal)
CPT/HCPCS: 70553; A9585

== ENCOUNTER 2023-12-01 15:45 | Outpatient (REF) | payer OTHER, SELFPAY ==
[2023-12-01 17:44] LABS: MANUAL DIFF FLAG NO
[2023-12-01 17:50] LABS: Appearance Urine Clear; Color Urine Dark Yellow; Glucose Urine UA Negative (Negative); Leukocyte Esterase Urine Small (1+) (Negative); Nitrite Urine Negative (Negative); UMIC TRIGGER UACC YES; Urine Blood Negative (Negative); Urine Ketones 15 mg/dL (Negative); Urine Protein Trace mg/dL (Neg-Trace)
[2023-12-01 18:02] LABS: Basophils Absolute Auto 0.1 X10*3/uL (0.0-0.2); Basophils Percent Auto 1.5 % (0-2); Eosinophils Absolute Auto 0.2 X10*3/uL (0.0-0.4); Eosinophils Percent Auto 5.5 % (0-4); Hematocrit 37.5 % (37.0-47.0); Hemoglobin 12.5 g/dl (12.0-16.0); Imm Gran Abs Auto 0.01 X10*3/uL (0.00-0.03); Imm Gran Pct Auto 0.3 % (0.0-0.4); Lymphocytes Percent Auto 31.1 % (20-40); Mean Corpuscular HGB Conc 33.3 g/dl (31.0-35.0); Mean Corpuscular Hemoglobin 32.5 pg (27.0-33.0); Mean Corpuscular Volume 97.4 fL (80.0-98.0); Mean Platelet Volume 10.6 fL (9.4-12.3); Monocytes Absolute Auto 0.3 X10*3/uL (0.1-1.2); Monocytes Percent Auto 10.5 % (2-11); Neutrophils Absolute Auto 1.7 x10*3/uL (2.0-8.3); Neutrophils Percent Auto 51.1 % (45-73); Platelet Count 225 X10*3/uL (160-400); Red Blood Count 3.85 X10*6/uL (4.20-5.50); White Blood Count 3.3 X10*3/uL (4.8-10.8)
[2023-12-01 18:09] LABS: Bacteria Urine None Seen (None Seen); RBC Urine 0-2 /HPF (0-2); Squamous Epithelial Cell Urine 0-2 /HPF (0-2); UACC Culture Trigger YES; WBC Urine 0-5 /HPF (0-5)
[2023-12-01 18:15] LABS: Anion Gap 12 (12-20); Blood Urea Nitrogen 10 mg/dL (9-16); Calcium 9.4 mg/dL (8.4-10.2); Carbon Dioxide 29 mmol/L (22-29); Chloride 103 mmol/L (96-108); Estimated Glomerular Filt Rate > 60; Glucose Random 63 mg/dL (60-115); Magnesium 2.1 mg/dL (1.6-2.6); Potassium 3.9 mmol/L (3.3-5.1); Sodium 140 mmol/L (135-145)
== END 2023-12-01 15:46 | disposition home or self-care (01) ==
LOC: HO.CHCLDS 15:45
PROVIDERS: Visit Provider Pediatrics
DX: K52.9 Noninfective gastroenteritis and colitis, unspecified (principal)
CPT/HCPCS: 36415; 80048; 81001; 83735; 85025; 87086

== ENCOUNTER 2025-01-12 16:24 | Outpatient (REF) | payer OTHER, SELFPAY ==
--- OUTSIDE RECORDS SUMMARY | 2025-01-12 07:00 | XMS_ITS | Encounter Summary ---
Author Organization [facility] Address [address] [place] [address] Care Team Providers Care Varnish Thinner Name Role Phone Alyssa Campo MD Primary Care Provider [phone] Reason for Visit * Reason Comments 14 day ROCT * Cardiac Stress Testing (Routine) - Authorized Specialty Diagnoses / Procedures Referred By Contac t Referred To Contact Cardiology Diagnoses Paroxysmal atrial fibrillation (CMS/HCC V24, CMS/HCC V28) Procedures Cardiac event monitor OK EXTERNAL PATIENT ACTIVATED ECG DOWNLOAD W RESULTS & INTERP <= 30 DAYS OK EXTERNAL PAT AUTO ACTIVATED ECG INCLUDING TRANSMISSION UP TO 30 DAYS OK EXTERNAL MOBILE CV TELEMETRY W ECG RECORDING <=30D PHYSCIAN REV & INTERP OK EXTERNAL MOBILE CV TELEMETRY W ECG RECORDING TECH SUPPORT UP TO 30 DAYS OK ECG UP TO 30 DAYS RECORDING Maite Lee, JORDYN [address] [place] [address] Phone: tel: fax: Referral ID Status Reason Start Date Expiration Date V isits Requested Visits Authorized [id number] Authorized 11/30/2024 11/30/2025 1 1 Encounter Details Date Type Department Care Team (Latest Contact Info) Description 01/12/2025 7:00 AM EST Ancillary Procedure [facility] - [address] [place] [phone] Paroxysmal atrial fibrillation (CMS/HCC V24, CMS/HCC V28) Social History Tobacco Use Types Packs/Day Years Used Date Smoking Tobacco: Never Smokeless Tobacco: Never Alcohol Use Standard Drinks/Week Comments Not Currently 0 (1 standard drink = 0.6 oz pur e alcohol) Interpersonal Safety Answer Date Record ed Physical Abuse Unrecognized value 01/16/2024 Verbal Abuse Unrecognized value 01/16/2024 Comments Unknown Sex and Gender Information Value Date Recorded Sex Assigned at Female 03/20/2024 6:56 PM EST Legal Sex Female 11:49 AM EST Gender Identity Female 03/20/2024 6:56 PM EST Sexual Orientation Straight 03/20/2024 6: 56 PM EST documented as of this encounter Plan of Treatment Upcoming Encounters Date Type Department Care Team (Late st Contact Info) Description 02/14/2025 2:40 PM EST Office Visit [facility] - [address] [place] [address] Maite Lee NP [address] [place] [address] [address] [address] Pending Results Name Type Priority Associated Diagnoses Date /Time Cardiac event monitor Cardiac Services Routine Paroxysmal atrial fibrillation (CMS/[facility] V24, CMS/HCC V28) 01/12/2025 3:03 PM EST documented as of this encounter Visit Diagnoses Diagnosis Paroxysmal atrial fibrillation (CMS/HCC V24, CMS/HCC V28) Atrial fibrillation documented in this encounter Care Teams Varnish Thinner Relationship Specialty Start Date End Date Alyssa Campo MD [address] [place] [address] PCP - General 01/21/15 documented as of this encounter
--- OUTSIDE RECORDS SUMMARY | 2025-01-12 15:15 | XMS_ITS | Encounter Summary ---
Author Organization [employer] Address [address] [place] [address] 7 [place] [address] Care Team Providers Care Safety Analyst Name Role Phone Alyssa Campo MD Primary Care Provider [phone] Encounter Details Date Type Department Care Team (Latest Contact Info) Description 01/12/2025 3:15 PM EST Office Visit [facility]S [address] [place], [place] [phone] Alyssa Campo MD [address] [place] [address] Mold exposure (Primary Dx); Dietary counseling; Exercise counseling; Chronic bilateral low back pain without sciatica; Generalized anxiety disorder; Adrenal insufficiency (CMS/HCC); Paroxysmal atrial fibrillation (CMS/HCC) (HCC); Stenosis of cervical spine with myelopathy (CMS/HCC) (HCC) Social History Tobacco Use Types Packs/Day Years Used Date Smoking Tobacco: Never Passive Smoke Exposure: Never Smokeless Tobacco: Never Depression Answer Date Recorded Patient Health Questionnaire-9 Score 4 05/12/2024 Patient Health Questionnaire-9 Score 4 05/12/2024 Last PHQ-9: Questionnaire Data Not on file 0 05/12/2024 Housing Stability Answer Date Recorded What is your housing situation today? I have rodriguez carlyle 06/25/[address] you li ve. Do you have problems with any of the following? None of the above 06/25/2023 Food Insecurity Answer Date Recorded Within the past 12 months, y ou worried that your food would run out before you got money to buy more: Never True 06/25/2023 Within the past 12 months,th e food you bought just didn't last and you didn't have enough money to get more: Never True Transportation Answer Date Recorded In the past 12 months, has l ack of transportation kept you from medical appts, meetings, work or from getting things needed for daily living? No 06/25/2023 Utilities Answer Date Recorded In the past 12 months, has t he electric, gas, oil or water company threatened to shut off services in your home? No 06/25/2023 Depression Answer Date Recorded Patient Health Questionnaire-2 Score 1 05/12/2024 Comments No Sex and Gender Information Value Date Recorded Sex Assigned at Female 12/09/2021 10:19 AM EDT Legal Sex Female 10:19 AM EDT Gender Identity Female 12/09/2021 10:19 AM EDT Sexual Orientation Straight 12/09/2021 10 :19 AM EDT documented as of this encounter Last Filed Vital Signs Vital Sign Reading Time Taken Comments Blood Pressure 140/88 01/12/2025 3:40 PM EST Pulse 90 01/12/2025 3:40 PM EST Temperature 36.1 C (97 F) 01/12/2025 3:40 PM EST Respiratory Rate 16 01/12/2025 3:40 PM EST Oxygen Saturation - - Inhaled Oxygen Concentration - - Weight 63 kg (139 lb) 01/12/2025 3:40 PM EST Height - - Body Mass Index 25.42 09/20/2024 1:54 PM EDT documented in this encounter Progress Notes * Alyssa Campo MD - 01/12/2025 3:15 PM EST Subjective Patient ID: Chantal Alvares is a 64 y.o. female who presents for follow up. Chantal Alvares, age 64 years Chronic Sinus and Respiratory Symptoms Reports daily constant dripping phlegm, sometimes severe enough to cause choking. Also experiences persistent mold taste on the tongue and frequent spitting up of yellow sputum. Symptoms are ongoing and debilitating, with daily fluctuation between phlegm and mold taste. Identifies exposure to mold in current and previous residences as a possible trigger. Has not been formally diagnosed with mold toxicity. Previously evaluated by a inspector tester sorter between 2011 and 2013, with no significant findings or interventions except for recommendation of NeoMed Sinus rinse, which was used for about a year.Later self-managed with [id number] sinus rinses and invested in a Navage device, discontinueduse about 1.5 years ago due to lack of benefit. Uses Sinus Metal Smelter (horseradish and cayenne pepper)intermittently since 2006, with increased use since July 2018 for sinus and mold-related symptoms. No prior mold blood testing before this encounter. Sleep Disturbance Reports severe difficulty sleeping, with prolonged nightly episodes of clearing lungs that delay sleep onset until enterprise systems administrator hours. Describes a worsening pattern, with a good night now being sleep onset at 7:00 AM and a bad night at 10:00-12:00 PM. Uses melatonin and magnesium for sleep forthe past four months, with some benefit. Denies prior sleep issues before onset of current symptoms. Cardiac History and Symptoms History of cardiac ablation on November 02, 2024, for arrhythmia. Reports prior intermittent palpitations and dizziness, with dizziness resolved after ablation. Flecainide discontinued on the day ofablation. Continues on Eliquis and diltiazem. No current palpitations. Reports prior episode of atrial fibrillation detected in March or April 2024, before ablation. No current limitation to exercise. Wearing a 48 hours holter monitor at this time which was ordered post ablation by sand mill operator. Neck Pain and Neurological Symptoms Reports chronic neck pain, especially in the morning, with stiffness and difficulty moving. MRI of the neck performed on November 26, 2024, reportedly shows arthritis and severe right-sided canal narrowing. No arm paresthesia or shocks. Reports balance issues. No prior neck surgery.has neurosx evaluation soon. Mood and Self-Image Reports low self-esteem and dissatisfaction with body image, particularly related to weight gain. Denies current engagement with therapy. Reports difficulty getting up in the morning, attributed to poor sleep and mood.On 37.5 mg venlafaxine. Adrenal Insufficiency History of adrenal insufficiency, currently managed with hydrocortisone. Dose reduced to one pill daily as per drive in theater attendant. Reports concern about weight gain related to hydrocortisone use.Has endo follow up set up in 02/2025. Medication Adherence Describes challenges with medication timing due to sleep-wake cycle disruption, uses a chart to track doses. Review of Systems Constitutional: Negative for activity change, chills, fever and unexpected weight change. Respiratory: Negative for cough, shortness of breath and wheezing. Cardiovascular: Negative for chest pain, palpitations and leg swelling. Gastrointestinal: Negative for abdominal pain and blood in stool. Endocrine: Negative for polydipsia and polyuria. Genitourinary: Negative for decreased urine volume, difficulty urinating, dysuria and hematuria. Musculoskeletal: Positive for neck pain. Negative for arthralgias and gait problem. Skin: Negative for color change and rash. Neurological: Negative for dizziness and headaches. Hematological: Negative for adenopathy. Psychiatric/Behavioral: Positive for behavioral problems and sleep disturbance. Negative for dysphoric mood, hallucinations and suicidal ideas. The patient is not nervous/anxious. Objective BP (!) 140/88 (BP Location: Left arm, Patient Position: Sitting, BP Cuff Size: Adult) Pulse 90 Temp 97 ??F (36.1 ??C) (Oral) Resp 16 Wt 139 lb (63 kg) LMP (LMP Unknown) BMI 25.42 kg/m?? Physical Exam Vitals reviewed. Constitutional: General: She is not in acute distress. Appearance: Normal appearance. She is normal weight. She is not ill-appearing. HENT: Head: Normocephalic. Cardiovascular: Rate and Rhythm: Normal rate and regular rhythm. Heart sounds: Normal heart sounds. No murmur heard. Pulmonary: Effort: Pulmonary effort is normal. No respiratory distress. Breath sounds: Normal breath sounds. Musculoskeletal: Right lower leg: No edema. Left lower leg: No edema. Neurological: Mental Status: She is alert and oriented to person, place, and time. Mental status is at baseline. Psychiatric: Attention and Perception: Attention normal. She does not perceive auditory or visual hallucinations. Mood and Affect: Mood and affect normal. Mood is not anxious. Affect is not tearful. Speech: Speech normal. Behavior: Behavior is not agitated, aggressive or withdrawn. Behavior is cooperative. Thought Content: Thought content normal. Cognition and Memory: Cognition normal. Assessment/Plan Mold exposure: - Concern for mold exposure with reported sinonasal symptoms; agreed to laboratory evaluation for mold. - Ordered blood test to detect mold in bloodstream. Provided printed copy of MRI report of the neckfor concurrent care coordination. Will consider referral after review of results as needed. Dietary counseling: - Recommended reducing ???junk food.?? Discussed weight concerns and BMI reported as 25. Exercise counseling: - Encouraged continuation/resumption of regular exercise; discussed prior walking regimen and current stretching routine. Advised follow-up to reassess activity after cardiac care updates. Generalized anxiety disorder: - Persistent anxiety symptoms with low self-esteem and sleep disturbance; subtherapeutic response to current venlafaxine dose. - Increased venlafaxine to 75 mg daily; prescription sent. Advised taking two 37.5 mg tablets to achieve new dose until new supply is filled. Scheduled follow-up to assess response to 75 mg and medication adherence; instructed not to arrive late. - Risks and side effects: Discussed that all medications can have side effects; acknowledged concerns. Adrenal insufficiency: - On hydrocortisone; dosing clarified as reduced to once daily per endocrinology; potential contribution to weight gain noted. - Reinforced endocrinology follow-up in February 2025; requested endocrinology notes to be sent for care coordination. Paroxysmal atrial fibrillation: - Status post cardiac ablation on November 02, 2024; flecainide discontinued; currently on diltiazem and apixaban (Eliquis); rhythm reported regular post-ablation. - Confirmed continuation of Eliquis and diltiazem pending cardiology guidance; cardiology follow-upwith nurse practitioner scheduled in February 2025; requested cardiology notes to be sent. Noted Holter monitor placed for 2 days with results pending. Diagnoses and all orders for this visit: Mold exposure - Allergy Mold Panel, Complete; Future Dietary counseling Exercise counseling Chronic bilateral low back pain without sciatica Generalized anxiety disorder Adrenal insufficiency (CMS/HCC) Paroxysmal atrial fibrillation (CMS/HCC) (HCC) Stenosis of cervical spine with myelopathy (CMS/HCC) (HCC) Other orders - venlafaxine XR (Effexor XR) 75 MG 24 hr capsule; Take 1 capsule (75 mg) by mouth Once per day. Donot crush or chew. documented in this encounter Plan of Treatment Upcoming Encounters Date Type Department Care Team (Late st Contact Info) Description 03/16/2025 3:15 PM EST Office Visit [facility] [address] [place] [address] Alyssa Campo MD [address] [place] [address] Scheduled Orders Name Type Priority Associated Diagnoses Orde r Schedule Allergy Mold Panel, Complete Lab Routine Mold exposure Expected: 01/12/2025 (Approximate), Expires: 01/12/2026 documented as of this encounter Visit Diagnoses Diagnosis Mold exposure- Primary Dietary counseling Dietary surveillance and counseling Exercise counseling Chronic bilateral low back pain without sciatica Generalized anxiety disorder Adrenal insufficiency (CMS/HCC) Glucocorticoid deficiency Paroxysmal atrial fibrillation (CMS/HCC) (HCC) Atrial fibrillation 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
--- OUTSIDE RECORDS SUMMARY | 2025-01-12 22:10 | XMS_ITS | Encounter Summary ---
Author Organization [employer] Address [address] [facility] [address] [place] [address] Care Team Providers Care Db2 Developer Name Role Phone Alyssa Campo MD Primary Care Provider [phone] Encounter Details Date Type Department Care Team ([facility] st Contact Info) Description 05/24/2024 Orders Only [facility] [address] [place], [place] [phone] Provider, MD Amos Social History Tobacco Use Types Packs/Day Years Used Date Smoking Tobacco: Never Passive Smoke Exposure: Never Smokeless Tobacco: Never Depression Answer Date Recorded Patient Health Questionnaire-9 Score 4 05/12/2024 Patient Health Questionnaire-9 Score 4 05/12/2024 Last PHQ-9: Questionnaire Data Not on file 0 05/12/2024 Housing Stability Answer Date Recorded What is your housing situation today? I have rodriguez tadeo 06/25/[address] you li [...] AM EDT documented as of this encounter Plan of Treatment Upcoming Encounters Date Type Department Care Team (Late st Contact Info) Description 03/16/2025 3:15 PM EST Office Visit [facility] MED & PEDS [address] [place] [address] Alyssa Campo MD [address] [place] [address] documented as of this encounter Procedures Procedure Name Priority Date/Time Associated Diagnosis Comments ECG 12-LEAD Routine 05/03/2024 11:54 AM EDT documented in this encounter Results * ECG 12 lead (05/03/2024 11:54 AM EDT) us Historical Provider ECG ORDERABLES Final Res ult documented in this encounter Visit Diagnoses Not on filedocumented in this encounter Additional Health Concerns Assessment Noted Time PHQ-9 Depression Total Score: 4 05/13/19 25 4:03 PM EDT documented as of this encounter Care Teams Db2 Developer Relationship Specialty Start Date End Date Alyssa Campo MD [address] [place] [address] PCP - General Family Medicine 02/09/18 documented as of this encounter
--- OUTSIDE RECORDS SUMMARY | 2025-01-12 22:10 | XMS_ITS | Encounter Summary ---
Author Organization [employer] Address [address] [place] [address] 7 [place] [address] Care Team Providers Care Econometrics Professor Name Role Phone Alyssa Campo MD Primary Care Provider [phone] Reason for Visit * Reason Onset Date Comments Referral 01/06/2023 Encounter Details Date Type Department Care Team ([facility] st Contact Info) Description 01/06/2023 Telephone [facility] [address] [place], [place] [phone] Alyssa Campo MD [address] [place] [address] Referral Social History Tobacco Use Types Packs/Day Years Used Date Smoking Tobacco: Never Passive Smoke Exposure: Never Smokeless Tobacco: Never Comments Unknown Sex and Gender Information Value Date Recorded Sex Assigned at Female 12/09/2021 10:19 AM EDT Legal Sex Female 10:19 AM EDT Gender Identity Female 12/09/2021 10:19 AM EDT Sexual Orientation Straight 12/09/2021 10 :19 AM EDT documented as of this encounter Miscellaneous Notes * Telephone Encounter - Bibi Bolivar - 01/07/2023 4:34 PM EST Referral faxed to [facility] as requested. * Telephone Encounter - Alyson Otis - 01/06/2023 10:53 AM EST Tc from pt requesting to modify cardiology referral. Referral was sent but pt is requesting a specific provider. Endoscopy Technican confirmed with office a new referral will need to be made with provider pt is requesting. Location: [address] [place] [address] Cardiology Date: n/a Time: n/a Specialty: Cardiology, Dr. Lucía David documented in this encounter Plan of Treatment Upcoming Encounters Date Type Department Care Team (Late st Contact Info) Description 03/16/2025 3:15 PM EST Office Visit [facility] [address] [place] [address] Alyssa Campo MD [address] [place] [address] documented as of this encounter Visit Diagnoses Not on filedocumented in this encounter Care Teams Econometrics Professor Relationship Specialty Start Date End Date Alyssa Campo MD [address] [place] [address] PCP - General Family Medicine 02/09/18 documented as of this encounter
--- OUTSIDE RECORDS SUMMARY | 2025-01-12 22:10 | XMS_ITS | Encounter Summary ---
Author Organization [employer] Address [address] [facility] 7t [place] [address] Care Team Providers Care Car Racer Name Role Phone Alyssa Campo MD Primary Care Provider [phone] Encounter Details Date Type Department Care Team ([facility] Contact Info) Description 07/05/2024 Orders Only [facility] [address] [place], [place] [phone] Provider, MD Amos Social History Tobacco Use [...] Description 03/16/2025 3:15 PM EST Office Visit [facility] PEDS [address] [place] [address] Alyssa Campo MD [address] [place] [address] documented as of this encounter Procedures Procedure Name Priority Date/Time Associated Diagnosis Comments STRESS TEST, REGADENOSON WITH MYOCARDIAL PERFUSION SPECT (SINGLE STUDY) Routine 06/28/2024 2:15 PM EDT documented in this encounter Results * Regadenoson stress test with myocardial perfusion SPECT (single study) (06/28/2024 2:15 PM EDT) us Historical Provider CV STRESS PROCEDURES Edit ed Result - Final documented in this encounter Visit Diagnoses Not on filedocumented in this encounter Additional Health Concerns Assessment Noted Time PHQ-9 Depression Total Score: 4 05/13/19 25 4:03 PM EDT documented as of this encounter Care Teams Car Racer Relationship Specialty Start Date End Date Alyssa Campo MD [address] [place] [address] PCP - General Family Medicine 02/09/18 documented as of this encounter
--- OUTSIDE RECORDS SUMMARY | 2025-01-12 22:10 | XMS_ITS | Encounter Summary ---
Author Organization [facility] Address [address] [place] [address] Care Team Providers Care Alliance Manager Name Role Phone Alyssa Campo MD Primary Care Provider [phone] Reason for Visit * Reason Onset Date Comments Med Refill 01/09/2025 Encounter Details Date Type Department Care Team (Late st Contact Info) Description 01/09/2025 Telephone [facility] - [facility] [address] [facility] [address] [place] [phone] Lucía David MD [address] [place] [phone] Social History Tobacco Use Types Packs/Day Years [...] PM EST documented as of this encounter Ordered Prescriptions Prescription Sig Dispense Quantity Refills Last Filled Start Date End Date dilTIAZem CD (CARDIZEM CD) 120 mg 24 hr capsule Take 1 capsule (120 mg total) by mouth 1 (one) time each day. 90 each 2 01/09/2025 documented in this encounter Progress Notes * Isidra Siddiqui RN - 01/09/2025 4:21 PM EST Efilled #90 2 rfs. I LMOM stating refilled as well. * Guerita Barrow NP - 01/09/2025 3:16 PM EST Ok to fill, thanks * Isidra Siddiqui RN - 01/09/2025 2:45 PM EST Ok if I fill Cardizenm CD 120 mg qd? PCP had been filling. Patient out now. Up to date on visits and labs. BRIANA 11/30/24 SL BRIANA 06/08/24 AYSE Dilt CD 120 mg qd Confirmed with pharmacy this is what she has been filling Labs: BMP 10/20/24 * Abena Montilla - 01/09/2025 8:50 AM EST Patient called and said she needs a refill on her 120 milligram 1 tab daily Diltiazem. She stated she took her last tablet today, and she is now out. Patient would like a 30 day supply sent to [facility] in [place]. documented in this encounter Plan of Treatment Upcoming Encounters Date Type Department Care Team (Late st Contact Info) Description 02/14/2025 2:40 PM EST Office Visit [facility] - [address] [facility] [address] [place] [address] Maite Lee NP [address] [place] [address] [address] [address] documented as of this encounter Visit Diagnoses Not on filedocumented in this encounter Discontinued Medications Medication Sig Discontinue Reason Start Date End Da te dilTIAZem CD (CARDIZEM CD) 120 mg 24 hr capsule Take 1 capsule (120 mg total) by mouth 1 (one) time each day. Reorder 01/18/2024 01/09/2025 documented as of this encounter Care Teams Alliance Manager Relationship Specialty Start Date End Date Alyssa Campo MD [address] [place] [phone] PCP - General 01/21/15 documented as of this encounter
--- OUTSIDE RECORDS SUMMARY | 2025-01-12 22:10 | XMS_ITS | Encounter Summary ---
Author Organization [employer] Address [address] [place] [address] [place] [address] Care Team Providers Care Mathematics Instructor Name Role Phone Alyssa Campo MD Primary Care Provider [phone] Reason for Visit * Reason Onset Date Comments Referral 07/23/2022 Encounter Details Date Type Department Care Team ([facility] st Contact Info) Description 07/23/2022 Telephone [facility] CHC MED & PEDS [address] [place], [place] [phone] Alyssa Campo MD [address] [place] [address] Referral Social History Tobacco Use Types Packs/Day Years Used Date Smoking Tobacco: Never Passive Smoke Exposure: Never Smokeless Tobacco: Never Comments Unknown Sex and Gender Information Value Date Recorded Sex Assigned at Female 12/09/2021 10:19 AM EDT Legal Sex Female 10:19 AM EDT Gender Identity Female 12/09/2021 10:19 AM EDT Sexual Orientation Straight 12/09/2021 10 :19 AM EDT COVID-19 Exposure Response Date Recorded In the last 10 days, have yo u been in contact with someone who was confirmed or suspected to have Coronavirus/COVID-19? No / Unsure 07/02/2022 11:19 AM EDT documented as of this encounter Miscellaneous Notes * Telephone Encounter - Umair Berg RN - 07/23/2022 6:09 PM EDT Please see office note from 07/02/22. Referral placed and letter sent to pt with appt details. Call to pt. States she mentioned to provider that she did not want to f/u with [facility] Card[facility]. Per pt, wants to f/u with Dr. Lucía David at [facility]. Pt states she was provided with fax number [phone]. Requesting referral and notes be faxed to this office so that she can schedule an appt. RN advised will forward to referral's dept to f/u with pt's request. Pt agrees. * Telephone Encounter - Alyson Berg - 07/23/2022 3:50 PM EDT Tc from pt requesting a call in regards to the referral for cardiology. Furnace Process Plant Operator did see the referralon 06/16/22 was cancelled. Please contact pt at [phone] documented in this encounter Plan of Treatment Upcoming Encounters Date Type Department Care Team (Late st Contact Info) Description 03/16/2025 3:15 PM EST Office Visit [facility] CHC MED & PEDS [address] [place] [address] Alyssa Campo MD [address] [place] [address] documented as of this encounter Visit Diagnoses Not on filedocumented in this encounter Care Teams Mathematics Instructor Relationship Specialty Start Date End Date Alyssa Campo MD [address] [place] [address] PCP - General Family Medicine 02/09/18 documented as of this encounter
--- OUTSIDE RECORDS SUMMARY | 2025-01-12 22:10 | XMS_ITS | Encounter Summary ---
Author Organization [employer] Address [address] [facility] 7 [place] [address] Care Team Providers Care Heel Seat Flap Stapler Name Role Phone Alyssa Campo MD Primary Care Provider [phone] Encounter Details Date Type Department Care Team ([facility] st Contact Info) Description 06/01/2024 Telephone [facility] MEDICINE [address] [place] [address] Alyssa Campo MD 505 [place], [place] [phone] Social History Tobacco Use Types Packs/Day Years Used Date Smoking Tobacco: Never Passive Smoke Exposure: Never Smokeless Tobacco: Never Depression Answer Date Recorded Patient Health Questionnaire-9 Score 4 05/12/2024 Patient Health Questionnaire-9 Score 4 05/12/2024 Last PHQ-9: Questionnaire Data Not on file 0 05/12/2024 Housing Stability Answer Date Recorded What is your housing situation today? I have rodriguezarabella tadeo 06/25/[address] you [...] encounter Miscellaneous Notes * Telephone Encounter - Mikael Salinas - 06/01/2024 9:56 AM EDT Tc from pt stating that she received a call from us yesterday 05/31/24 and she wasn't left any type of Voicemail. Contact pt at [phone] documented in this encounter Plan of Treatment Upcoming Encounters Date Type Department Care Team (Late st Contact Info) Description 03/16/2025 3:15 PM EST Office Visit [facility] MED & PEDS [address] [place] [address] Alyssa Campo MD [address] [place] [address] documented as of this encounter Visit Diagnoses Not on filedocumented in this encounter Additional Health Concerns Assessment Noted Time PHQ-9 Depression Total Score: 4 05/13/19 25 4:03 PM EDT documented as of this encounter Care Teams Heel Seat Flap Stapler Relationship Specialty Start Date End Date Alyssa Campo MD [address] [place] [address] PCP - General Family Medicine 02/09/18 documented as of this encounter
--- OUTSIDE RECORDS SUMMARY | 2025-01-12 22:10 | XMS_ITS | Encounter Summary ---
Author Organization [employer] Address [address] [place] [address] [place] [address] Care Team Providers Care Surveillance Operator Name Role Phone Alyssa Campo MD Primary Care Provider [phone] Reason for Visit * Reason Comments Med Refill Encounter Details Date Type Department Care Team ([facility] Contact Info) Description 09/26/2022 Refill [facility] MED & PEDS [address] [place] [address] Ursula Wilkes MD [address] [place] [address] Anxiety; Chronic shoulder pain, unspecified laterality Social History Tobacco Use Types Packs/Day Years [...] Encounters Date Type Department Care Team (Late Contact Info) Description 03/16/2025 3:15 PM EST Office Visit [facility] CHC MED & PEDS [address] [place] [address] Alyssa Campo MD [address] [place] [address] documented as of this encounter Visit Diagnoses Diagnosis Anxiety Anxiety state, unspecified Chronic shoulder pain, unspecified laterality documented in this encounter Care Teams Surveillance Operator Relationship Specialty Start Date End Date Alyssa Campo MD [address] [place] [address] PCP - General Family Medicine 02/09/18 documented as of this encounter
--- OUTSIDE RECORDS SUMMARY | 2025-01-12 22:10 | XMS_ITS | Encounter Summary ---
Author Organization [employer] Address [address] [place] [address] Care Team Providers Care Medical Physicist Name Role Phone Alyssa Campo MD Primary Care Provider [phone] Reason for Visit * Reason Onset Date Comments Referral 01/06/2023 Encounter Details Date Type Department Care Team (Late Contact Info) Description 01/06/2023 Telephone [facility] CHC MED & PEDS [address] [place], [place] [phone] Alyssa Campo MD [address] [place] [address] Referral Social History Tobacco Use Types Packs/Day [...] encounter Miscellaneous Notes * Telephone Encounter - Alyson Otis - 01/06/2023 10:31 AM EST Tc from pt requesting a referral for massage therapy. Service Worker could not obtain any other information. For clarification, please contact pt at [phone] documented in this encounter Plan of Treatment Upcoming Encounters Date Type Department Care Team (Late Contact Info) Description 03/16/2025 3:15 PM EST Office Visit [facility] CHC MED & PEDS [address] [place] [address] Alyssa Campo MD [address] [place] [address] documented as of this encounter Visit Diagnoses Not on filedocumented in this encounter Care Teams Medical Physicist Relationship Specialty Start Date End Date Alyssa Campo MD [address] [place] [address] PCP - General Family Medicine 02/09/18 documented as of this encounter
--- OUTSIDE RECORDS SUMMARY | 2025-01-12 22:10 | XMS_ITS | Encounter Summary ---
Author Organization [employer] Address [address] [facility] 7 [place] [address] Care Team Providers Care Trimmer Machine Name Role Phone Alyssa Campo MD Primary Care Provider [phone] Reason for Visit * Reason Onset Date Comments Referral 06/01/2024 Encounter Details Date Type Department Care Team ([facility] st Contact Info) Description 06/01/[address] [facility] MEDICINE [address] [place] [address] Alyssa Campo MD [address] [place] [address] Referral Social History Tobacco Use Types Packs/Day [...] Miscellaneous Notes * Telephone Encounter - Mikael Niño - 06/01/2024 9:52 AM EDT Tc from pt requesting status of referral for Endocrinology Done on 05/16/24. Pt has been waiting a while for the referral and would like to know what the status is. Contact pt at [phone] documented in this encounter Plan of Treatment Upcoming Encounters Date Type Department Care Team (Late st Contact Info) Description 03/16/2025 3:15 PM EST Office Visit [facility] CHC MED & PEDS [address] [place] [address] Alyssa Campo MD [address] [place] [address] documented as of this encounter Visit Diagnoses Not on filedocumented in this encounter Additional Health Concerns Assessment Noted Time PHQ-9 Depression Total Score: 4 05/13/19 25 4:03 PM EDT documented as of this encounter Care Teams Trimmer Machine Relationship Specialty Start Date End Date Alyssa Campo MD [address] [place] [address] PCP - General Family Medicine 02/09/18 documented as of this encounter
--- OUTSIDE RECORDS SUMMARY | 2025-01-12 22:10 | XMS_ITS | Encounter Summary ---
Author Organization [employer] Address [address] [place] [address] [place] [address] Care Team Providers Care Powder Guard Name Role Phone Alyssa Campo MD Primary Care Provider [phone] Reason for Visit * Reason Comments Med Refill Encounter Details Date Type Department Care Team (Late Contact Info) Description 09/09/2022 Refill [facility] MEDICINE [address] [place], [place] [phone] Robb Hoyos MD [address] [place], [place] [phone] Chronic shoulder pain, unspecified laterality Social History [...] Description 03/16/2025 3:15 PM EST Office Visit [facility] CHC MED & PEDS [address] [place], [place] [phone] Alyssa Campo MD [address] [place] [address] documented as of this encounter Visit Diagnoses Diagnosis Chronic shoulder pain, unspecified laterality documented in this encounter Care Teams Powder Guard Relationship Specialty Start Date End Date Alyssa Campo MD [address] [place] [address] PCP - General Family Medicine 02/09/18 documented as of this encounter
--- OUTSIDE RECORDS SUMMARY | 2025-01-12 22:10 | XMS_ITS | Encounter Summary ---
Author Organization [employer] Address [address] [place] [address] 7 [place] [address] Care Team Providers Care Warehouse Processor Name Role Phone Alyssa Campo MD Primary Care Provider [phone] Reason for Visit * Reason Onset Date Comments Nurse Triage 01/06/2023 Encounter Details Date Type Department Care Team ([facility] st Contact Info) Description 01/06/2023 Telephone [facility] MED & PEDS [address] [place], [place] [phone] Alyssa Campo MD [address] [place] [address] Nurse Triage Social History Tobacco Use Types Packs/Day Years [...] encounter Miscellaneous Notes * Telephone Encounter - Barbie Jackson RN - 01/06/2023 12:04 PM EST Triage call Pt reports fever started 12/30/22 and lasted for 4 days. Pt reports a deep congestionin the lungs. Pt reports normally colds will pass withing 2-4 days but, this seems different. Pt has not tested for Covid. Pt reports some production with cough and it is yellow color. No fever sincethe . No other symptoms reported. Pt is given apt in [facility] 340[facility] today 01/06/23. Protocol Used: Cough (Adult) Protocol-Based Disposition: See in Office or Video Visit Today or Tomorrow Video visit not offered Positive Triage Questions: * Continuous (nonstop) coughing interferes with work or school and no improvement using cough treatment per Care Advice * Patient wants to be seen * All higher-acuity triage questions were negative Care Advice Discussed: * Reassurance and Education - Cough * Coughing Spells * Prevent Dehydration * Humidifier * Fever Medicines * Reasons To Call Back - Difficulty breathing - Cough lasts more than 3 weeks - Fever lasts more than 3 days - You become worse * Telephone Encounter - Alyson Berg - 01/06/2023 10:20 AM EST Symptoms: Colds, Cough Outcome: Schedule an urgent appointment (within 1 hour) or talk to a nurse or provider soon Reason: Wheezing (high-pitched whistling sound) The caller accepted this outcome Please contact pt at [phone] documented in this encounter Plan of Treatment Upcoming Encounters Date Type Department Care Team (Late st Contact Info) Description 03/16/2025 3:15 PM EST Office Visit [facility] MED & PEDS [address] [place] [address] Alyssa Campo MD [address] [place] [address] documented as of this encounter Visit Diagnoses Not on filedocumented in this encounter Care Teams Warehouse Processor Relationship Specialty Start Date End Date Alyssa Campo MD [address] [place] [address] PCP - General Family Medicine 02/09/18 documented as of this encounter
--- OUTSIDE RECORDS SUMMARY | 2025-01-12 22:10 | XMS_ITS | Encounter Summary ---
Author Organization [employer] Address [address] [facility] 7t [place] [address] Care Team Providers Care Auto Body Repair Technician Name Role Phone Alyssa Campo MD Primary Care Provider [phone] Encounter Details Date Type Department Care Team ([facility] st Contact Info) Description 09/26/2024 Orders Only [facility] CHC MED & PEDS [address] [place], [place] [phone] Provider, MD Amos Social History Tobacco Use [...] Description 03/16/2025 3:15 PM EST Office Visit [facility] MED & PEDS [address] [place] [address] Alyssa Campo MD [address] [place] [address] documented as of this encounter Procedures Procedure Name Priority Date/Time Associated Diagnosis Comments HM MAMMOGRAPHY Routine 09/21/2024 12:10 PM EDT documented in this encounter Results * Hm Mammography (09/21/2024 12:10 PM EDT) Anatomical Region Laterality Modality Other us Historical Provider HEALTH MAINTENANCE Final Result documented in this encounter Visit Diagnoses Not on filedocumented in this encounter Additional Health Concerns Assessment Noted Time PHQ-9 Depression Total Score: 4 05/13/19 25 4:03 PM EDT documented as of this encounter Care Teams Auto Body Repair Technician Relationship Specialty Start Date End Date Alyssa Campo MD [address] [place] [address] PCP - General Family Medicine 02/09/18 documented as of this encounter
--- OUTSIDE RECORDS SUMMARY | 2025-01-12 22:10 | XMS_ITS | Encounter Summary ---
Author Organization [employer] Address [address] [place] [address] [place] [address] Care Team Providers Care Security Control Room Officer Name Role Phone Alyssa Campo MD Primary Care Provider [phone] Reason for Visit * Reason Comments Med Refill Encounter Details Date Type Department Care Team (Late Contact Info) Description 07/26/2022 Refill [facility] MED & PEDS [address] [place], [place] [phone] Alyssa Campo MD [address] [place] [address] Chronic pain syndrome Social History Tobacco Use Types Packs/Day Years [...] Description 03/16/2025 3:15 PM EST Office Visit [facility] CHC MED & PEDS [address] [place] [address] Alyssa Campo MD [address] [place], [place] [phone] documented as of this encounter Visit Diagnoses Diagnosis Chronic pain syndrome documented in this encounter Care Teams Security Control Room Officer Relationship Specialty Start Date End Date Alyssa Campo MD [address] [place] [address] PCP - General Family Medicine 02/09/18 documented as of this encounter
--- OUTSIDE RECORDS SUMMARY | 2025-01-12 22:10 | XMS_ITS | Clinical Summary ---
Author Organization [facility] Address [address] [place] [address] Care Team Providers Care Hotbed Transfer Operator Name Role Phone Alyssa Campo Primary Care Provider [phone] Allergies Active Allergy Reactions Criticality Noted Date Comments Amoxicillin Rash 06/07/2024 Doxycycline Rash 06/07/2024 Medications apixaban (ELIQUIS) 2.5 mg tablet Take 5 mg by mouth every 12 hours. Active hydrocortisone (CORTEF) 10 mg tablet Take 10 mg by mouth 2 times a day. Active flecainide (TAMBOCOR) 100 mg tablet Take 100 mg by mouth 2 times a day. Active dilTIAZem (CARDIZEM) 120 mg tablet Take 120 mg by mouth once. Active venlafaxine (EFFEXOR) 37.5 mg tablet Take 37.5 mg by mouth once. Active cyclobenzaprine (FLEXERIL) 5 mg tablet Take 5 mg by mouth once. Active gabapentin (NEURONTIN) 100 mg capsule Take 100 mg by mouth every night. Active acetaminophen (TYLENOL) 500 mg tablet Take 1,000 mg by mouth every 6 hours as needed for pain. Active Active Problems Problem Noted Date Diagnosed Date Stenosis of cervical spine with myelopathy 12/01 Abnormal involuntary movement 06/09/2024 Vasovagal syncope 06/07/2024 Paroxysmal atrial fibrillation 06/07/2024 Imbalance 06/07/2024 Decreased sense of vibration 06/07/2024 Encounters Date Type Department Care Team Description 12/01/2024 myChart Message [facility] Neurology [address] [place] [address] Zofia Rosas MD MRI cervical spine 12/01/2024 Orders Only [facility] Neurology [address] [place] [address] Zofia Rosas MD Stenosis of cervical spine with myelopathy (Primary Dx) 11/26/2024 Orders Only [facility] MRI [facility] [address] [place] [address] Zofia Rosas MD Other disturbances of skin sensation; Other abnormalities of gait and mobility from Last 3 Months Social History Tobacco Use Types Packs/Day Years Used Date Smoking Tobacco: Never Assessed Comments Unknown Sex and Gender Information Value Date Recorded Sex Assigned at Female 12/09/2023 3:55 PM EDT Legal Sex Female 12:05 AM EDT Gender Identity Not on file Sexual Orientation Not on file Last Filed Vital Signs Vital Sign Reading Time Taken Comments Blood Pressure 95/60 06/07/2024 3:47 PM EDT Pulse 100 06/07/2024 3:47 PM EDT Temperature - - Respiratory Rate - - Oxygen Saturation 98% 06/07/2024 3:47 PM EDT Inhaled Oxygen Concentration - - Weight 62.4 kg (137 lb 8 oz) 06/07/2024 3:47 PM EDT Height - - Body Mass Index - - Plan of Treatment Upcoming Encounters Date Type Department Care Team (Late st Contact Info) Description 02/16/2025 1:45 PM EST Office Visit [facility] Neurosurgery [address] [place] [address] Jody Jensen MD [address] [place] [address] Health Maintenance Due Date Last Done Comments Cologuard 1958 Colon Cancer Screening 1958 Colonoscopy 1958 FOBT / Fit Test 1958 Hepatitis C Screening 1960 Sigmoidoscopy 1958 Mammogram 1998 Pneumococcal Vaccine: 50+ Years (1 of 1 - PCV) 01/20/2008 Zoster Vaccines (1 of 2) 01/20/2008 Alcohol/Substance Use Screening 02/10/2024 Depression Screening and Follow-Up 02/10/2024 Fall Risk Screening 02/10/2024 Health Care Proxy Review 02/10/2024 Social Drivers of Health Annual Screening 02/10/2024 Influenza Vaccine (#1) 2024 COVID-19 Vaccine ( - 2024-2 6 season) 2024 RSV Vaccine (60+ years old a nd patients) (1 - 1-dose 75+ series) 2033 DTaP,Tdap,and Td Vaccines (4 - Td or Tdap) 03/17/2034 03/17/2024, 07/01/2023, 02/11/2011 Osteoporosis Screening Completed , 10/04/2024 Hepatitis B Vaccines Aged Out No long er eligible based on patient's age to complete this topic Procedures * Due to [place] [employer] law, this organization might not be sharing negative HIV tests. Procedure Name Priority Date/Time Associated Diagnosis Comments LAB - SCANNED 11/30/2024 MRI CERVICAL SPINE WO CONTRAST Routine 11/26/2024 4:30 PM EDT Other disturbances of skin sensation Other abnormalities of gait and mobility from Last 3 Months Results * Due to [place] [employer] law, this organization might not be sharing negative HIV tests. * LAB - SCANNED (11/30/2024) us Onbase Scan [facility] LAB HISTORICAL RESULTS Final Result * MRI Cervical Spine WO Contrast (11/26/2024 4:30 PM EDT) Anatomical Region Laterality Modality Spine, C-spine Magnetic Resonan ce 12/01/2024 4:20 PM EDT Impressions 12/01/2024 4:34 PM EDT 1. Multilevel multifactorial degenerative changes in the visualized spine, more pronounced at the C3-C4 with moderate spinal canal stenosis and severe right and moderate left neuroforaminal narrowing, C4-C5 with severe right neuroforaminal narrowing at C5-C6 with moderate to severe spinal canal stenosis and severe bilateral neuroforaminal narrowing. (Yellow alert). 2. Other degenerative changes as described in the body of the report. A(n) Yellow actionable finding has been communicated to the ordering or responsible provider via the [employer] system on 12/01/2024 4:33 PM. Receipt of this communication by the responsible provider will be documented in [employer] upon receiving acknowledgement if applicable, Message ID [id number]. If this radiology report contains a blank impression section, it is an incomplete radiology report. Please contact the interpreting radiologist or applicable radiology division as soon as possible to obtain the completed interpretation. Workstation ID: [id number] Narrative 12/01/2024 4:34 PM EDT EXAMINATION: MRI of cervical spine without contrast TECHNIQUE: Multiplanar and multisequence MR imaging of cervical spine performed without intravenous contrast administration. Sequences obtained include, Sagittal plane: T1, T2 and STIR Axial plane: T2 and gradient CLINICAL INFORMATION: Cervical COMPARISON: None FINDINGS: Reversal of the physiologic cervical lordosis centered at C4 vertebral body. Minimal anterolisthesis C3 on C4 and C7 on T1. Minimal retrolisthesis C5 on C6 and C6 on C7. Vertebral body height is preserved. No suspicious bone marrow signal abnormality. Multilevel intervertebral disc decreasing height and T2 signal, more pronounced at the C3-C4, C4-C5 and C6-C7 levels, suggesting desiccation. The spinal cord appears normal in signal and morphology Fatty infiltration of the paraspinal muscles. The visualized portions of the brain are unremarkable. SIGNIFICANT FINDINGS BY LEVEL: C2-3: Diffuse osteophyte disc complex along with bilateral uncovertebral and facet joint arthropathy causing mild left neuroforaminal narrowing. No right neuroforaminal narrowing. No spinal canal stenosis. C3-4: Large osteophyte disc complex along with bilateral uncovertebral and facet joint arthropathy, causing moderate spinal canal stenosis and severe right and moderate left neuroforaminal narrowing. C4-5: Diffuse osteophyte disc complex along with bilateral uncovertebral and facet joint arthropathy causing severe right and mild left neuroforaminal narrowing. No spinal canal stenosis. C5-6: Mild retrolisthesis C5 on C6 along with a small central disc protrusion causing moderate to severe spinal canal stenosis. Bilateral uncovertebral and facet joint arthropathy causing severe bilateral neuroforaminal narrowing. C6-7: Diffuse osteophyte disc complex along with bilateral uncovertebral and facet joint arthropathy, causing moderate to severe spinal canal stenosis and moderate right neuroforaminal narrowing. No left neuroforaminal narrowing. C7-T1: Mild anterolisthesis C7 on T1 along with bilateral uncovertebral and facet joint arthropathy causing mild bilateral neural foraminal narrowing. No spinal canal stenosis. Resulting Agency Comment [id number] Procedure Note Alma Zamorano MD PhD - 12/01/2024 EXAMINATION: MRI of cervical spine without contrast TECHNIQUE: Multiplanar and multisequence MR imaging of cervical spine performedwithout intravenous contrast administration. Sequences obtained include, Sagittal plane: T1, T2 and STIR Axial plane: T2 and gradient CLINICAL INFORMATION: Cervical COMPARISON: None FINDINGS: Reversal of the physiologic cervical lordosis centered at C4 vertebralbody. Minimal anterolisthesis C3 on C4 and C7 on T1. Minimalretrolisthesis C5 on C6 and C6 on C7. Vertebral body height is preserved. No suspicious bone marrow signalabnormality. Multilevel intervertebral disc decreasing height and T2 signal, morepronounced at the C3-C4, C4-C5 and C6-C7 levels, suggesting desiccation. The spinal cord appears normal in signal and morphology Fatty infiltration of the paraspinal muscles. The visualized portions of the brain are unremarkable. SIGNIFICANT FINDINGS BY LEVEL: C2-3: Diffuse osteophyte disc complex along with bilateral uncovertebraland facet joint arthropathy causing mild left neuroforaminal narrowing. Noright neuroforaminal narrowing. No spinal canal stenosis. C3-4: Large osteophyte disc complex along with bilateral uncovertebral andfacet joint arthropathy, causing moderate spinal canal stenosis and severeright and moderate left neuroforaminal narrowing. C4-5: Diffuse osteophyte disc complex along with bilateral uncovertebraland facet joint arthropathy causing severe right and mild leftneuroforaminal narrowing. No spinal canal stenosis. C5-6: Mild retrolisthesis C5 on C6 along with a small central discprotrusion causing moderate to severe spinal canal stenosis. Bilateraluncovertebral and facet joint arthropathy causing severe bilateralneuroforaminal narrowing. C6-7: Diffuse osteophyte disc complex along with bilateral uncovertebraland facet joint arthropathy, causing moderate to severe spinal canalstenosis and moderate right neuroforaminal narrowing. No leftneuroforaminal narrowing. C7-T1: Mild anterolisthesis C7 on T1 along with bilateral uncovertebraland facet joint arthropathy causing mild bilateral neural foraminalnarrowing. No spinal canal stenosis. IMPRESSION: 1. Multilevel multifactorial degenerative changes in the visualizedspine, more pronounced at the C3-C4 with moderate spinal canal stenosisand severe right and moderate left neuroforaminal narrowing, C4-C5 withsevere right neuroforaminal narrowing at C5-C6 with moderate to severespinal canal stenosis and severe bilateral neuroforaminal narrowing.(Yellow alert). 2. Other degenerative changes as described in the body of the report. A(n) Yellow actionable finding has been communicated to the ordering orresponsible provider via the [employer] system on12/01/2024 4:33 PM. Receipt of this communication by the responsibleprovider will be documented in [employer] uponreceiving acknowledgement if applicable, Message ID [id number]. If this radiology report contains a blank impression section, it is anincomplete radiology report. Please contact the interpreting radiologistor applicable radiology division as soon as possible to obtain thecompleted interpretation. Workstation ID: [id number] Zofia Rosas MD IMG MRI PROCEDURES Edited Result - Final from Last [address] [place] [id number] ELADIA SALGUERO [id number] Care Teams Hotbed Transfer Operator Relationship Specialty Start Date End Date Alyssa Campo [address] [place] [address] PCP - General Internal Medicine 12/04/23
--- OUTSIDE RECORDS SUMMARY | 2025-01-12 22:10 | XMS_ITS | Encounter Summary ---
Author Organization [facility] [employer] [facility] Address [address] [place] [address] 7 [place] [address] Care Team Providers Care Yam Curer Name Role Phone Alyssa Campo MD Primary Care Provider [phone] Reason for Visit * Reason Comments Med Refill Encounter Details Date Type Department Care Team ([facility] st Contact Info) Description 07/07/2024 Refill [facility] PEDS [address] [place], [place] [phone] Alyssa Campo MD [address] [place] [address] Chronic pain syndrome; Chronic shoulder pain, unspecified laterality Social History [...] Description 03/16/2025 3:15 PM EST Office Visit [facility] PED[facility] [address] [place] [address] Alyssa Campo MD [address] [place] [address] documented as of this encounter Visit Diagnoses Diagnosis Chronic pain syndrome Chronic shoulder pain, unspecified laterality documented in this encounter Additional Health Concerns Assessment Noted Time PHQ-9 Depression Total Score: 4 05/13/19 25 4:03 PM EDT documented as of this encounter Care Teams Yam Curer Relationship Specialty Start Date End Date Alyssa Campo MD [address] [place] [address] PCP - General Family Medicine 02/09/18 documented as of this encounter
--- OUTSIDE RECORDS SUMMARY | 2025-01-12 22:10 | XMS_ITS | Encounter Summary ---
Author Organization [facility] Address [address] [place] [address] [place] [address] Care Team Providers Care Medical Sales Representative Name Role Phone Alyssa Campo MD Primary Care Provider [phone] Reason for Visit * Reason Onset Date Comments Referral 11/19/2022 Encounter Details Date Type Department Care Team ([facility] st Contact Info) Description 11/19/2022 Telephone [facility] MED & PEDS [address] [place], [place] [phone] Alyssa Campo MD [address] [place] [address] Referral Social History Tobacco Use Types Packs/Day [...] encounter Miscellaneous Notes * Telephone Encounter - Kiley Fam - 12/22/2022 11:54 AM EST Tc from pt requesting status on referral. Please see previous notes. Please contact at [phone] * Telephone Encounter - Karina Palmern - 12/03/2022 10:32 AM EDT Tc from pt calling requesting status on referral for infant and toddler teacher, pt is requesting for referral elana updated with Dr name. Please contact pt at [phone] * Telephone Encounter - Sofi Guevara - 11/24/2022 3:33 PM EDT Tc from patient requesting the status, regarding message below. * Telephone Encounter - Makayla Larkin - 11/19/2022 4:47 PM EDT TC from pt requesting a correction on Cardiology Referral. Pt states that Referral was sent to [facility] in [place] which is correct but was sent to under the wrong provider that is no longer there. Pt provided Provider Name which is Dr. Lucía David. Pt also Provided Front [facility] direct fax #which is [phone] Pt would like a call with updates. Please contact pt at [phone] documented in this encounter Plan of Treatment Upcoming Encounters Date Type Department Care Team (Late st Contact Info) Description 03/16/2025 3:15 PM EST Office Visit [facility] MED & PEDS [address] [place] [address] Alyssa Campo MD [address] [place] [address] documented as of this encounter Visit Diagnoses Not on filedocumented in this encounter Care Teams Medical Sales Representative Relationship Specialty Start Date End Date Alyssa Campo MD [address] [place] [address] PCP - General Family Medicine 02/09/18 documented as of this encounter
--- OUTSIDE RECORDS SUMMARY | 2025-01-12 22:11 | XMS_ITS | Encounter Summary ---
Author Organization [facility] [facility] Address [address] [facility] [address] [place] [address] Care Team Providers Care Minibus Driver Name Role Phone Alyssa Campo MD Primary Care Provider [phone] Reason for Visit * Reason Comments Med Refill Encounter Details Date Type Department Care Team (Late st Contact Info) Description 03/03/2024 Refill [facility] [address] [place] [address] Ursula Wilkes MD [address] [place] [address] Social History Tobacco Use Types Packs/Day Years Used Date Smoking Tobacco: Never Passive Smoke Exposure: Never Smokeless Tobacco: Never Depression Answer Date Recorded Patient Health Questionnaire-9 Score 2 09/10/2023 Patient Health Questionnaire-9 Score 2 09/10/2023 Last PHQ-9: Questionnaire Data Not on file 0 09/10/2023 Housing Stability Answer Date Recorded What is [...] Answer Date Recorded Patient Health Questionnaire-2 Score 0 09/10/2023 Comments No Sex and Gender Information Value [...] 03/16/2025 3:15 PM EST Office Visit [facility] MED & PEDS [address] [place] [address] Alyssa Campo MD [address] [place] [address] documented as of this encounter Visit Diagnoses Not on filedocumented in this encounter Additional Health Concerns Assessment Noted Time PHQ-9 Depression Total Score: 2 09/10/19 24 3:40 PM EDT documented as of this encounter Care Teams Minibus Driver Relationship Specialty Start Date End Date Alyssa Campo MD [address] [place] [address] PCP - General Family Medicine 02/09/18 documented as of this encounter
--- OUTSIDE RECORDS SUMMARY | 2025-01-12 22:11 | XMS_ITS | Encounter Summary ---
Author Organization [employer] [facility] Address [address] [facility] 7 [place] [address] Care Team Providers Care Process Project Engineer Name Role Phone Alyssa Campo MD Primary Care Provider [phone] Reason for Visit * Reason Onset Date Comments Referral 07/09/2023 Encounter Details Date Type Department Care Team ([facility] st Contact Info) Description 07/09/2023 Telephone [facility] MED[facility] [address] [place] [address] Alyssa Campo MD [address] [place] [address] Referral Social History Tobacco Use Types Packs/Day Years Used Date Smoking Tobacco: Never Passive Smoke Exposure: Never Smokeless Tobacco: Never Depression Answer Date Recorded Patient Health Questionnaire-9 Score 3 06/25/2023 Patient Health Questionnaire-9 Score 3 06/25/2023 Last PHQ-9: Questionnaire Data Not on file 0 06/25/2023 Housing Stability Answer Date Recorded What is [...] Date Recorded Patient Health Questionnaire-2 Score 1 06/25/2023 Comments Unknown Sex and Gender Information Value Date Recorded Sex Assigned at Female 12/09/2021 10:19 AM EDT Legal Sex Female 10:19 AM EDT Gender Identity Female 12/09/2021 10:19 AM EDT Sexual Orientation Straight 12/09/2021 10 :19 AM EDT documented as of this encounter Miscellaneous Notes * Telephone Encounter - Bibi Bolivar - 07/09/2023 4:47 PM EDT VM left for patient regarding referral for PT for G. Office doesn't require a script or a referral just a call to book appointment. Tel # for office left for patient to contact and make appointment. * Telephone Encounter - Laron Mg - 07/09/2023 3:45 PM EDT Tc from pt requesting for physical therapy referral location to be changed from [facility] to [facility] Services. Pt has been referred to [facility] twice when she has been requesting to be referred to [facility]. If any questions please contact pt at [phone]. [facility] Address: [address] [place] [address] . documented in this encounter Plan of Treatment Upcoming Encounters Date Type Department Care Team (Late st Contact Info) Description 03/16/2025 3:15 PM EST Office Visit [facility] MED & PEDS [address] [place] [address] Alyssa Campo MD [address] [place] [address] documented as of this encounter Visit Diagnoses Not on filedocumented in this encounter Additional Health Concerns Assessment Noted Time PHQ-9 Depression Total Score: 3 06/25/19 24 3:51 PM EDT documented as of this encounter Care Teams Process Project Engineer Relationship Specialty Start Date End Date Alyssa Campo MD [address] [place] [address] PCP - General Family Medicine 02/09/18 documented as of this encounter
--- OUTSIDE RECORDS SUMMARY | 2025-01-12 22:11 | XMS_ITS | Encounter Summary ---
Author Organization [facility] [place] [address] Care Team Providers Care Distribution Associate Name Role Phone Alyssa Campo MD Primary Care Provider [phone] Reason for Visit * Reason Onset Date Comments ROCT - 68934/05330 (Ok to Book) 12/01/2024 ROCT Enrollment 12/01/2024 Enrolling enzo t for 14 day ROCT Encounter Details Date Type Department Care Team (Late st Contact Info) Description 12/01/2024 Telephone [facility] - [facility] [address] [facility] [address] [place] [address] Pradip Altamirano MD [address] [place] [address] [address] [place] [phone] Social History Tobacco Use Types Packs/Day Years [...] PM EST documented as of this encounter Progress Notes * Radha Marroquin RN - 01/10/2025 9:18 AM EST ROCT monitor was delivered 12/29/24. Pt has not started wearing yet. I left voicemail asking pt to charge battery, apply per instructions in the box, and call [facility] to confirm transmission [phone]. * Samra Bryant MA - 12/12/2024 9:31 AM EST 12/12/24: Enrolling patient for 14 day ROCT per JORDYN Dawkins// Dx: PAF- on AC s/p PVI I called and spoke to patient, she is aware [facility] will reach out to her to schedule home delivery. * Kermit Wood MA - 12/02/2024 8:50 AM EDT Tentative Date: to be enrolled for 14 day ROCT per JORDYN Dawkins// Dx: PAF- on AC s/p PVI * Carmen Braxton - 12/01/2024 4:06 PM EDT Prior Auth Status: NO Auth Req per [facility] Insurance Referral: N/A CPT: 08623/59708 - ROCT DX: I48.0 Duration: 14 Days [place]: Evelia BECERRA documented in this encounter Plan of Treatment Upcoming Encounters Date Type Department Care Team (Late st Contact Info) Description 02/14/2025 2:40 PM EST Office Visit [facility] - [address] [facility] [address] [place] [address] Maite Lee, FREELANCE COPYWRITER [address] [place] [address] [address] [place] [address] documented as of this encounter Visit Diagnoses Not on filedocumented in this encounter Care Teams Distribution Associate Relationship Specialty Start Date End Date Alyssa Campo MD [address] [place] [address] PCP - General 01/21/15 documented as of this encounter
--- OUTSIDE RECORDS SUMMARY | 2025-01-12 22:11 | XMS_ITS | Encounter Summary ---
Author Organization [employer] Address [address] [place] [address] [place] [address] Care Team Providers Care Is Project Manager Name Role Phone Alyssa Campo MD Primary Care Provider [phone] Reason for Visit * Reason Onset Date Comments Returning Call 06/19/2023 Encounter Details Date Type Department Care Team (Late Contact Info) Description 06/19/2023 Telephone [facility] MED[facility] [address] [place] [address] Alyssa Campo MD [address] [place] [address] Returning Call Social History Tobacco Use Types Packs/Day Years [...] encounter Miscellaneous Notes * Telephone Encounter - Laron Mg - 06/19/2023 4:09 PM EDT Tc from pt returning call regarding message below. LILLIAM Carlson placed outbound call to patient to complete pre-visit planning. No answer at this time. Patient name and were not confirmed. CC left voicemail requesting return call. Direct contactinformation provided. documented in this encounter Plan of Treatment Upcoming Encounters Date Type Department Care Team (Late Contact Info) Description 03/16/2025 3:15 PM EST Office Visit [facility] MED & PEDS [address] [place] [address] Alyssa Campo MD [address] [place] [address] documented as of this encounter Visit Diagnoses Not on filedocumented in this encounter Care Teams Is Project Manager Relationship Specialty Start Date End Date Alyssa Campo MD [address] [place] [address] PCP - General Family Medicine 02/09/18 documented as of this encounter
--- OUTSIDE RECORDS SUMMARY | 2025-01-12 22:11 | XMS_ITS | Encounter Summary ---
Author Organization [employer] Address 75 [facility] 7t [place] [address] Care Team Providers Care Awning Maker Name Role Phone Alyssa Campo MD Primary Care Provider [phone] Encounter Details Date Type Department Care Team ([facility] st Contact Info) Description 10/05/[address] [facility] MED & PEDS [address] [place], [place] [id number] Provider, MD Amos Social History Tobacco Use [...] Description 03/16/2025 3:15 PM EST Office Visit [facility] MED & PEDS [address] [place] [address] Alyssa Campo MD [address] [place] [address] documented as of this encounter Procedures Procedure Name Priority Date/Time Associated Diagnosis Comments BD DEXA AXIAL Routine 10/04/2024 3:14 PM EDT documented in this encounter Results * BD DEXA Axial (10/04/2024 3:14 PM EDT) Anatomical Region Laterality Modality Body Radiographic Elis ging us Historical Provider IMTricia DXA PROCEDURES Final Result documented in this encounter Visit Diagnoses Not on filedocumented in this encounter Additional Health Concerns Assessment Noted Time PHQ-9 Depression Total Score: 4 05/13/19 25 4:03 PM EDT documented as of this encounter Care Teams Awning Maker Relationship Specialty Start Date End Date Alyssa Campo MD [address] [place] [address] PCP - General Family Medicine 02/09/18 documented as of this encounter
--- OUTSIDE RECORDS SUMMARY | 2025-01-12 22:11 | XMS_ITS | Encounter Summary ---
Author Organization [employer] Address 75 [facility] 7 [place] [address] Care Team Providers Care Chainstitch Sewing Machine Operator Name Role Phone Alyssa Campo MD Primary Care Provider [phone] Reason for Visit * Reason Onset Date Comments Hospital Follow-up 01/18/2024 Encounter Details Date Type Department Care Team ([facility] st Contact Info) Description 01/18/2024 Telephone [facility] MEDICINE [address] [place] [address] Alyssa Campo MD [address] [place] [id number] Hospital Follow-up Social History Tobacco Use Types Packs/Day Years [...] * Telephone Encounter - Mikael Niño - 01/18/2024 2:55 PM EST Tc from pt requesting a HDF appt. Hospital: [facility] Date of admission: 01/14 Discharge date: 01/17 Diagnosed: A/SIB Contact pt at [phone] *Send message to [place] Clinical Care Coordinators documented in this encounter Plan of Treatment Upcoming Encounters Date Type Department Care Team (Late st Contact Info) Description 03/16/2025 3:15 PM EST Office Visit [facility] CHC MED & PEDS [address] [place] [address] Alyssa Campo MD [address] [place] [address] documented as of this encounter Visit Diagnoses Not on filedocumented in this encounter Additional Health Concerns Assessment Noted Time PHQ-9 Depression Total Score: 2 09/10/19 24 3:40 PM EDT documented as of this encounter Care Teams Chainstitch Sewing Machine Operator Relationship Specialty Start Date End Date Alyssa Campo MD [address] [place] [address] PCP - General Family Medicine 02/09/18 documented as of this encounter
--- OUTSIDE RECORDS SUMMARY | 2025-01-12 22:11 | XMS_ITS | Encounter Summary ---
Author Organization [employer] Address [address] [place] [address] [place] [address] Care Team Providers Care General Manager Name Role Phone Alyssa Campo MD Primary Care Provider [phone] Reason for Visit * Reason Onset Date Comments Referral 06/12/2022 Encounter Details Date Type Department Care Team ([facility] st Contact Info) Description 06/12/2022 Telephone [facility] CHC MED & PEDS [address] [place], [place] [phone] Alyssa Campo MD [address] [place] [address] Referral Social History Tobacco Use Types Packs/Day [...] encounter Miscellaneous Notes * Telephone Encounter - Viky Mccormack RN - 06/13/2022 3:30 PM EDT TC to pt- she states Dr Campo did refer her already to a roll forming machine set up mechanic but she wishes to see a female provider. She requests to see Dr. Lucía David at [facility] cardiology. She is aware message to be sent to PCP. * Telephone Encounter - Makayla Larkin - 06/12/2022 11:36 AM EDT Tc from pt requesting a new referral for a Recapper. Pt states she would like referral sent to [facility]iology in [place] with Provider Dr. Lucía David due to location roberto. If any question please contact at [phone] documented in this encounter Plan of Treatment Upcoming Encounters Date Type Department Care Team (Late st Contact Info) Description 03/16/2025 3:15 PM EST Office Visit [facility] MED & PEDS [address] [place] [address] Alyssa Campo MD [address] [place] [address] documented as of this encounter Visit Diagnoses Not on filedocumented in this encounter Care Teams General Manager Relationship Specialty Start Date End Date Alyssa Campo MD [address] [place] [address] PCP - General Family Medicine 02/09/18 documented as of this encounter
--- OUTSIDE RECORDS SUMMARY | 2025-01-12 22:11 | XMS_ITS | Encounter Summary ---
Author Organization [employer] Address [address] [place] [address] 7 [place] [address] Care Team Providers Care Flexible Shaft Winder Name Role Phone Alyssa Campo MD Primary Care Provider [phone] Reason for Visit * Reason Comments Med Refill Encounter Details Date Type Department Care Team ([facility] st Contact Info) Description 01/24/2024 Refill [facility] CHC MED & PEDS [address] [place], [place] [phone] Alyssa Campo MD [address] [place] [address] Chronic pain syndrome Social History Tobacco Use [...] 03/16/2025 3:15 PM EST Office Visit [facility] MED & PEDS [address] [place] [address] Alyssa Campo MD [address] [place] [address] documented as of this encounter Visit Diagnoses Diagnosis Chronic pain syndrome documented in this encounter Additional Health Concerns Assessment Noted Time PHQ-9 Depression Total Score: 2 09/10/19 24 3:40 PM EDT documented as of this encounter Care Teams Flexible Shaft Winder Relationship Specialty Start Date End Date Alyssa Campo MD [address] [place] [address] PCP - General Family Medicine 02/09/18 documented as of this encounter
--- OUTSIDE RECORDS SUMMARY | 2025-01-12 22:11 | XMS_ITS | Clinical Summary ---
Author Organization [facility] Address [address] [place], [place] [id number] Phone Care Team Providers Care Precision Dyer Name Role Phone Alyssa Campo MD Primary Care Provider [phone] Allergies Active Allergy Reactions Criticality Noted Date Comments Amoxicillin Rash,Unknown Low 01/15/2024 Ciprofloxacin 03/17/2024 Doxycycline Rash Low 01/15/2024 Gluten 09/04/2023 Medications acetaminophen (TYLENOL) 500 MG tablet Take 1,000 mg by mouth every 6 (six) hours as needed. Active apixaban (ELIQUIS) 2.5 mg Take 5 mg by mouth 2 (two) times a day. Active cyclobenzaprine (FLEXERIL) 5 MG tablet Take 5 mg by mouth 2 (two) times a day as needed. Active dilTIAZem (CARDIZEM) 120 MG immediate release tablet Take 120 mg by mouth daily. Active flecainide (TAMBOCOR) 100 MG tablet Take 100 mg by mouth 2 (two) times a day. 4 Active fluocinolone (DERMA-SMOOTHE/ FS SCALP) 0.01 % Oil scalp oil Apply topically nightly at bedtime. 4 Active gabapentin (NEURONTIN) 100 MG capsule Take 100 mg by mouth daily. 4 Active hydrocortisone (CORTEF) 10 MG tablet Take 10 mg by mouth 2 (two) times a day. 4 Active hydrocortisone 2.5 % cream as needed. 5 Active venlafaxine (EFFEXOR) 37.5 MG tablet Take 37.5 mg by mouth daily. Active tacrolimus (PROTOPIC) 0.1 % ointment as needed. 5 Active clobetasol (TEMOVATE) 0.05 % external solution APPLY TO SCALP 1-2X DAILY NEEDED FOR ITCHING FOR 2 WEEKS, BREAK 1 WEEK, REPEAT NEEDED Active calcipotriene 0.005 % solution APPLY TO THE SCALP 1-2X DAILY NEEDED. Active nystatin cream Apply topically 2 (two) times a day. 30 g 5 Active Active Problems Problem Noted Date Diagnosed Date Adrenal insufficiency 06/24/2024 Assessment & Plan (06/24/2024 10:28 PM EDT): 64-year-old woman was referred with probable adrenal insufficiency. Her hospital records were obtained after the patient's visit. History of syncopal episodes since 2013 thought to be vasovagal. She was admitted to [facility] on 01/15/2024 with paroxysmal atrial fibrillation with rapid ventricular rate. She was converted to sinus rhythm the next day. Because of continued hypotension she was screened for adrenal insufficiency while inpatient. Her a.m. cortisol on 01/16/2024 was low at 1.7. On the same day she had a Cortrosyn stimulation test showing a baseline cortisol of 4.5 at 6:44 PM, 30 minutes post stimulation cortisol was suboptimal at 9.1 and stayed similar 60 minutes after the stimulation at 10.3. ACTH level was not reported. Her electrolytes were normal as well as thyroid function. She was treated with IV hydrocortisone while inpatient and started on p.o. 10 mg hydrocortisone twice a day on discharge. Her sleep/wake cycle is disrupted, she gets up between 1 to 2 PM and goes to bed around 4 to 5 AM. She is taking the first dose of hydrocortisone around 1 PM and missing the second dose 2-3 times a week. She gained about 12 pounds since 01/2024. Patient does not have any known pituitary or adrenal disease. She recalls 2 epidural steroid injections in 06/2009 and 04/2010. She was on a 7-day course of prednisone of unknown dose between 01/08/2024- 01/14/2024 for facial eczema. We reviewed basic physiology of the hypothalamic pituitary adrenal axis, possible causes of adrenal insufficiency. She could have had a temporary suppression of the HPA axis from exogenous prednisone the week before the testing was done. It is unlikely that her syncopal episodes are related to adrenal insufficiency. Since she has been missing the second dose of hydrocortisone already 2-3 times per week without much adverse effect we decided to stop the second dose and continue the first dose when she wakes up around 1 PM. If she is feeling well on this dose she may try to decrease the first dose to 5 mg after being on the 10 mg daily dose for about 2 weeks. We will check her cortisol level when she wakes up at 1 PM, make sure that she takes her hydrocortisone after the blood was drawn. Will also check her ACTH level and electrolytes. Advised patient to call for results. Reviewed symptoms of adrenal crisis and stress dosing of hydrocortisone. Encouraged to call if concerned. Family History Medical History Relation Comments Lung cancer Father Relation Status Comments Father Mother Social History Tobacco Use Types Packs/Day Years Used Date Smoking Tobacco: Never Smokeless Tobacco: Never Tobacco Cessation:Counseling Given: Not Answered Alcohol Use Standard Drinks/Week Comments Not Currently 0 (1 standard drink = 0.6 oz pur e alcohol) Education Answer Date Recorded Are you interested in more education? Not on nandini e 05/26/2024 Are you concerned about learning? Not on file 05/26/2024 No 05/26/2024 No 05/26/2024 Digital Access Answer Date Recorded No 05/26/2024 No 05/26/2024 Reliable internet access at home? Not on file 05/26/2024 Device with a working camera? Not on file Comments Unknown Sex and Gender Information Value Date Recorded Sex Assigned at Not on file Legal Sex Female 4:14 PM EST Gender Identity Not on file Sexual Orientation Not on file Last Filed Vital Signs Vital Sign Reading Time Taken Comments Blood Pressure 122/68 10/05/2024 3:05 PM EDT Pulse - - Temperature - - Respiratory Rate - - Oxygen Saturation - - Inhaled Oxygen Concentration - - Weight 63.5 kg (140 lb) 10/05/2024 3:05 PM EDT Height 159.5 cm (5' 2.8 ) 10/05/2024 3:05 PM EDT Body Mass Index 24.96 10/05/2024 3:05 PM EDT Plan of Treatment Upcoming Encounters Date Type Department Care Team (Late st Contact Info) Description 02/22/2025 3:00 PM EST Office Visit [facility] [address] [place] [address] [place] [address] Babs Watson MD [address] [place] [address] [email or web address] Health Maintenance Due Date Last Done Comments CREATININE LEVEL 1958 DEPRESSION SCREENING 1970 HEPATITIS C SCREENING 01/20/1976 SMOKING STATUS SCREENING (On ce After 26 Yrs) 01/20/1984 MAMMOGRAM 1998 COLOGUARD 2003 COLONOSCOPY 2003 COLORECTAL CANCER SCREENING 2003 FIT TEST 2003 FOBT 2003 SIGMOIDOSCOPY 2003 VIRTUAL COLONOSCOPY 2003 PNEUMOCOCCAL VACCINES (50+ years) (1 of 1 - PCV) 01/20/2008 ZOSTER VACCINES (1 of 2) 01/20/2008 INFLUENZA VACCINE (#1) 2024 COVID-19 VACCINE (1 - 2024-2 6 season) 2024 LIPID PANEL 09/01/2028 09/02/2023 RSV VACCINE (1 - 1-dose 75+ series) 2033 Adult Td,Tdap Booster 03/17/2034 03/17/2024 , 07/01/2023, 02/11/2011 OSTEOPOROSIS SCREENING INITI AL (ONE-TIME) Completed 10/04/2024 HEPATITIS A VACCINES Aged Out No long er eligible based on patient's age to complete this topic HIB VACCINES Aged Out No longer eligi ble based on patient's age to complete this topic MENINGOCOCCAL VACCINES (ACWY) Aged Out No longer eligible based on patient's age to complete this topic MENINGOCOCCAL VACCINES (B) Aged Out N o longer eligible based on patient's age to complete this topic Medical Devices Not on file [facility] MEDICARE [place] [address] [place] [address] MEDICARE REPLACEMENT [facility] MEDICARE REPLACEMENT [facility] MEDICARE REPLACEMENT [facility] MEDICARE REPLACEMENT [facility] MEDICARE REPLACEMENT Care Teams Precision Dyer Relationship Specialty Start Date End Date Alyssa Campo MD [address] [place] [address] PCP - General Internal Medicine 04/13/24 Additional Source Comments The information contained in this document represents components of the legal health record. It is not the complete legal health record.[facility]
--- OUTSIDE RECORDS SUMMARY | 2025-01-12 22:11 | XMS_ITS | Encounter Summary ---
Author Organization [employer] Address [address] [place] [address] 7 [place] [address] Care Team Providers Care Patient Biller Name Role Phone Alyssa Campo MD Primary Care Provider [phone] Reason for Visit * Reason Comments Med Refill Encounter Details Date Type Department Care Team ([facility] st Contact Info) Description 01/18/2024 Refill [facility] CHC MED & PEDS [address] [place], [place] [phone] Alyssa Campo MD [address] [place] [address] Chronic shoulder pain, unspecified laterality Social History [...] [facility] MED & PEDS [address] [place] [address] Alyssa Campo MD [address] [place] [address] documented as of this encounter Visit Diagnoses Diagnosis Chronic shoulder pain, unspecified laterality documented in this encounter Additional Health Concerns Assessment Noted Time PHQ-9 Depression Total Score: 2 09/10/19 24 3:40 PM EDT documented as of this encounter Care Teams Patient Biller Relationship Specialty Start Date End Date Alyssa Campo MD [address] [place] [address] PCP - General Family Medicine 02/09/18 documented as of this encounter
--- OUTSIDE RECORDS SUMMARY | 2025-01-12 22:11 | XMS_ITS | Encounter Summary ---
Author Organization [employer] Address 75 [facility] 7t [place] [address] Care Team Providers Care Double Corner Cutter Name Role Phone Alyssa Campo MD Primary Care Provider [phone] Encounter Details Date Type Department Care Team ([facility] st Contact Info) Description 06/29/2023 Orders Only [facility] CHC MED & PEDS [address] [place], [place] [phone] Provider, MD Amos Social History Tobacco Use [...] 3:15 PM EST Office Visit [facility] MED & PEDS [address] [place] [address] Alyssa Campo MD [address] [place] [address] documented as of this encounter Procedures Procedure Name Priority Date/Time Associated Diagnosis Comments MAMMOGRAPHY SCREENING Routine 06/26/2023 10:22 AM EDT documented in this encounter Results * MAMMOGRAPHY SCREENING (06/26/2023 10:22 AM EDT) Anatomical Region Laterality Modality Breast Left Mammography us Historical Provider MD ANDREWS BI PROCEDURES Final R esult documented in this encounter Visit Diagnoses Not on filedocumented in this encounter Additional Health Concerns Assessment Noted Time PHQ-9 Depression Total Score: 3 06/25/19 24 3:51 PM EDT documented as of this encounter Care Teams Double Corner Cutter Relationship Specialty Start Date End Date Alyssa Campo MD [address] [place] [address] PCP - General Family Medicine 02/09/18 documented as of this encounter
--- OUTSIDE RECORDS SUMMARY | 2025-01-12 22:11 | XMS_ITS | Encounter Summary ---
Author Organization [employer] Address 75 [facility] 7 [place] [address] Care Team Providers Care Tube Coremaker Name Role Phone Alyssa Campo MD Primary Care Provider [phone] Encounter Details Date Type Department Care Team (Late st Contact Info) Description 06/09/2023 Telephone [facility] MEDICINE [address] [place] [address] Alyssa Campo MD [address] [place], [place] [phone] Social History Tobacco Use Types Packs/Day Years [...] encounter Miscellaneous Notes * Telephone Encounter - Savanah Hopkins RN - 06/15/2023 3:34 PM EDT Noted. TC X1 to pt to inform of need to be seen for referrals. LVM to return call. * Telephone Encounter - Savanah Hopkins RN - 06/15/2023 1:14 PM EDT Please review message from pt regarding multiple referrals and advise if you'd like to wait until you see pt on 06/25/23. * Telephone Encounter - Laron Mg - 06/09/2023 4:11 PM EDT Tc from pt requesting referral for [employer] Systems Administrator. Pt has been seen with deb speech and hearing before but stopped due to them no longer taking her insurance for that year. Pt is also requesting to referred to a vending machine host/hostess, doesn't have a specific location in mind. Pt is also requesting a call back from a nurse wants to further discuss referrals and has a few more questions. Please contact pt at [phone]. (Pt would like call after 2:00 pm if possible) documented in this encounter Plan of Treatment Upcoming Encounters Date Type Department Care Team (Late st Contact Info) Description 03/16/2025 3:15 PM EST Office Visit [facility] MED & PEDS [address] [place] [address] Alyssa Campo MD [address] [place] [address] documented as of this encounter Visit Diagnoses Not on filedocumented in this encounter Care Teams Tube Coremaker Relationship Specialty Start Date End Date Alyssa Campo MD [address] [place] [address] PCP - General Family Medicine 02/09/18 documented as of this encounter
--- OUTSIDE RECORDS SUMMARY | 2025-01-12 22:11 | XMS_ITS | Encounter Summary ---
Author Organization [employer] Address 75 [facility] 7t [place] [address] Care Team Providers Care Manager Physical Name Role Phone Alyssa Campo MD Primary Care Provider [phone] Encounter Details Date Type Department Care Team ([facility] st Contact Info) Description 01/10/2025 Orders Only [facility] CHC MED & PEDS [address] [place], [place] [phone] Provider, MD Amos Social History Tobacco Use [...] [facility] MED & PEDS [address] [place] [address] Alyssa Campo MD [address] [place] [address] documented as of this encounter Procedures Procedure Name Priority Date/Time Associated Diagnosis Comments ECG 12-LEAD Routine 11/30/2024 documented in this encounter Results * ECG 12 lead (11/30/2024) us Historical Provider ECG ORDERABLES Final Res ult documented in this encounter Visit Diagnoses Not on filedocumented in this encounter Additional Health Concerns Assessment Noted Time PHQ-9 Depression Total Score: 4 05/13/19 25 4:03 PM EDT documented as of this encounter Care Teams Manager Physical Relationship Specialty Start Date End Date Alyssa Campo MD [address] [place] [address] PCP - General Family Medicine 02/09/18 documented as of this encounter
--- OUTSIDE RECORDS SUMMARY | 2025-01-12 22:11 | XMS_ITS | Encounter Summary ---
Author Organization [employer] Address 75 [facility] 7t [place] [address] Care Team Providers Care Interpreter For The Deaf Name Role Phone Alyssa Campo MD Primary Care Provider [phone] Encounter Details Date Type Department Care Team ([facility] Contact Info) Description 2024 Orders Only [facility] [address] [place] [address] Provider, MD Amos Social History Tobacco Use [...] Description 03/16/2025 3:15 PM EST Office Visit [facility] MED & PEDS [address] [place] [address] Alyssa Campo MD [address] [place] [address] documented as of this encounter Procedures Procedure Name Priority Date/Time Associated Diagnosis Comments ECG 12-LEAD Routine 01/18/2024 9:30 AM EST documented in this encounter Results * ECG 12 lead (01/18/2024 9:30 AM EST) us Historical Provider ECG ORDERABLES Final Res ult documented in this encounter Visit Diagnoses Not on filedocumented in this encounter Additional Health Concerns Assessment Noted Time PHQ-9 Depression Total Score: 2 09/10/19 24 3:40 PM EDT documented as of this encounter Care Teams Interpreter For The Deaf Relationship Specialty Start Date End Date Alyssa Campo MD [address] [place] [address] PCP - General Family Medicine 02/09/18 documented as of this encounter
--- OUTSIDE RECORDS SUMMARY | 2025-01-12 22:11 | XMS_ITS | Encounter Summary ---
Author Organization [employer] Address 75 [facility] 7 [place] [address] Care Team Providers Care Rocket Engine Mechanic Name Role Phone Alyssa Campo MD Primary Care Provider [phone] Reason for Visit * Reason Onset Date Comments Referral 09/16/2023 Encounter Details Date Type Department Care Team ([facility] st Contact Info) Description 09/16/2023 Telephone [facility] MEDICINE [address] [place] [address] Alyssa Campo MD [address] [place] [address] Referral Social History Tobacco Use Types Packs/Day [...] * Telephone Encounter - Laron Mg - 10/05/2023 3:47 PM EDT Tc from pt stating she has not received PE notes and si requesting they be re sent along with the notes from her interpreter and translator from her appt in August. Pt is also calling in regards to Vascular Surgery stating she has been referred to [facility] but was informed they only have a male provider and she wants to be seen with female provider. Pt also informed junior underwriter of situation with life insurance stating it was canceled and she needs pcp to send a letter to [employer]. If any questions you can contact pt at [phone]. * Telephone Encounter - Laron Mg - 09/16/2023 3:01 PM EDT Tc from pt requesting a referral for colonoscopy. Pt would like to be referred to Dr Alis Donis( [address] [place] [phone]). Pt also stated during physical on 09/09 she attempted to copy of PE notes along with a copy of notes from interpreter and translator that were faxed. PCP advised to getnotes from medical care evaluation specialist but [place] stated she would have to mail notes to her but she has not received anything. If any questions please contact pt at [phone] documented in this encounter Plan of Treatment Upcoming Encounters Date Type Department Care Team ([facility] Contact Info) Description 03/16/2025 3:15 PM EST Office Visit [facility] CHC MED & PEDS [address] [place] [address] Alyssa Campo MD [address] [place] [address] documented as of this encounter Visit Diagnoses Not on filedocumented in this encounter Additional Health Concerns Assessment Noted Time PHQ-9 Depression Total Score: 2 09/10/19 24 3:40 PM EDT documented as of this encounter Care Teams Rocket Engine Mechanic Relationship Specialty Start Date End Date Alyssa Campo MD [address] [place] [address] PCP - General Family Medicine 02/09/18 documented as of this encounter
--- OUTSIDE RECORDS SUMMARY | 2025-01-12 22:11 | XMS_ITS | Encounter Summary ---
Author Organization [employer] Address [address] [facility] [address] [place] [address] Care Team Providers Care Rn Home Health Name Role Phone Alyssa Campo MD Primary Care Provider Encounter Details Date Type Department Care Team ([facility] st Contact Info) Description 07/09/2023 Telephone [facility] [address] [place] [address] Alyssa Campo MD [address] [place], [place] [id number] Social History Tobacco Use Types Packs/Day Years [...] encounter Miscellaneous Notes * Telephone Encounter - [facility] - 07/09/2023 3:29 PM EDT Tc from pt was advised she is overdue for a colonoscopy but they're requesting a physical before procedure. Field Agent scheduled a physical for 09/09 but ptt stated she discussed with pcp in which pcp informed pt that they might be able to count 06/24 office visit as a physical and fax notes to Dr. Mullen's office for pt to follow through on colonoscopy. Dr Alis [place]'s Office Number: [phone] (Fax number was not provided) If any questions please contact pt at [phone] documented in this encounter Plan of Treatment Upcoming Encounters Date Type Department Care Team ([facility] st Contact Info) Description 03/16/2025 3:15 PM EST Office Visit [facility] [address] [place] [address] Alyssa Campo MD [address] [place] [address] documented as of this encounter Visit Diagnoses Not on filedocumented in this encounter Additional Health Concerns Assessment Noted Time PHQ-9 Depression Total Score: 3 06/25/19 24 3:51 PM EDT documented as of this encounter Care Teams Rn Home Health Relationship Specialty Start Date End Date Alyssa Campo MD [address] [place] [address] PCP - General Family Medicine 02/09/18 documented as of this encounter
--- OUTSIDE RECORDS SUMMARY | 2025-01-12 22:11 | XMS_ITS | Encounter Summary ---
Author Organization [employer] Address [address] [place] [address] [address] [place] [address] Care Team Providers Care Aircraft Stress Analyst Name Role Phone Alyssa Campo MD Primary Care Provider [phone] Encounter Details Date Type Department Care Team (Latest Contact Info) Description 01/12/2025 Travel Social History Tobacco Use Types Packs/Day Years [...] Description 03/16/2025 3:15 PM EST Office Visit [facility] [address] [place] [address] Alyssa Campo MD [address] [place] [address] documented as of this encounter Visit Diagnoses Not on filedocumented in this encounter Additional Health Concerns Assessment Noted Time PHQ-9 Depression Total Score: 4 05/13/19 25 4:03 PM EDT documented as of this encounter Care Teams Aircraft Stress Analyst Relationship Specialty Start Date End Date Alyssa Campo MD [address] [place] [address] PCP - General Family Medicine 02/09/18 documented as of this encounter
--- OUTSIDE RECORDS SUMMARY | 2025-01-12 22:11 | XMS_ITS | Encounter Summary ---
Author Organization [employer] Address [address] [facility] [address] [place] [address] Care Team Providers Care Therapist Occupational Name Role Phone Alyssa Campo MD Primary Care Provider [phone] Encounter Details Date Type Department Care Team ([facility] st Contact Info) Description 05/04/2024 Orders Only [facility] [address] [place], [place] [phone] Provider, MD Amos Social History Tobacco Use [...] Description 03/16/2025 3:15 PM EST Office Visit [facility] [address] [place] [address] Alyssa Campo MD [address] [place] [address] documented as of this encounter Procedures Procedure Name Priority Date/Time Associated Diagnosis Comments ECG 12-LEAD Routine 05/03/2024 9:29 AM EDT documented in this encounter Results * ECG 12 lead (05/03/2024 9:29 AM EDT) us Historical Provider ECG ORDERABLES Final Res ult documented in this encounter Visit Diagnoses Not on filedocumented in this encounter Additional Health Concerns Assessment Noted Time PHQ-9 Depression Total Score: 2 09/10/19 24 3:40 PM EDT documented as of this encounter Care Teams Therapist Occupational Relationship Specialty Start Date End Date Alyssa Campo MD [address] [place] [address] PCP - General Family Medicine 02/09/18 documented as of this encounter
--- OUTSIDE RECORDS SUMMARY | 2025-01-12 22:11 | XMS_ITS | Clinical Summary ---
Author Organization [facility] Address [address] [place] [address] Phone Care Team Providers Care Platform Engineer Name Role Phone Ada Price MD Primary Care Provider Allergies Active Allergy Reactions Criticality Noted Date Comments Amoxicillin Unknown 01/15/2024 Ciprofloxacin 03/17/2024 Doxycycline Rash 01/15/2024 Gluten 09/04/2023 Medications cyclobenzaprine (FLEXERIL) 10 mg tablet Take 0.5 tablets (5 mg total) by mouth 1 (one) time each day if needed for muscle spasms. Active hydrocortisone (CORTEF) 10 mg tablet Take 1 tablet (10 mg total) by mouth 2 (two) times a day. 60 each 4 Active venlafaxine XR (EFFEXOR-XR) 37.5 mg 24 hr capsule Take 1 capsule (37.5 mg total) by mouth 1 (one) time each day. 4 Active apixaban (ELIQUIS) 5 mg tablet Take 1 tablet (5 mg total) by mouth 2 (two) times a day. 120 each 1 5 Active dilTIAZem CD (CARDIZEM CD) 120 mg 24 hr capsule Take 1 capsule (120 mg total) by mouth 1 (one) time each day. 90 each 2 5 01/10/20 26 Active dilTIAZem CD (CARDIZEM CD) 120 mg 24 hr capsule Take 1 capsule (120 mg total) by mouth 1 (one) time each day. 30 each 11 4 01/10/20 25 Discontinu ed(Reorder ) Active Problems Problem Noted Date Diagnosed Date Adrenal insufficiency ([facility] V24) 01/17/2024 Paroxysmal atrial fibrillation ([facility] V24, [facility] V28) 01/16/2024 Assessment & Plan (06/08/2024 10:42 AM EDT): -Denies abnormal bleeding -On diltiazem for rate control -Utilizing flecainide for antiarrhythmic-patient due to have ischemic evaluation, has canceled several past appointments - Scheduled for ablation on 07/20/2024 -CHADS2 Vascor is elevated for sex and age Assessment & Plan (03/01/2024 2:40 PM EST): Patient is in normal sinus rhythm at the appointment today. She expresses several times that she does not want to be on the medications that she is on, believes they are causing side effects such as constipation and generally she just does not want to be on these meds. Patient does not have any recent history of's test. I will order a nuclear perfusion stress study because of the lower back issue she deals with. I am also going to order a 30-day monitor which she has agreed to. In addition I am going to give her a referral to sleep medicine to see if she has sleep apnea. She declines any abnormal bleeding at the appointment today. She does have a CHADS2 Vascor of a 2 for age and sex. Orders: ECG 12 lead Nuclear stress test with myocardial perfusion; Future Cardiac event monitor; Future Ambulatory referral to Cardiac Electrophysiology; Future Atrial fibrillation with rap id ventricular response ([facility] V24, [facility] V28) 01/15/2024 Aortic ectasia ([facility] V24) 09/04/2023 Overview (03/01/2024): -On 01/17/2024 patient had echocardiogram. This revealed left ventricle cavity size is normal with an LVEF of 55 to 60%. No regional wall motion abnormalities. Left ventricle wall thickness is normal. The right ventricle cavity is normal. Aortic valve leaflets are mildly thickened. The sinus of Valsalva is dilated at 3.5 cm. The ascending aorta is dilated at 3.8 cm. Assessment & Plan (06/08/2024 10:42 AM EDT): -On 01/17/2024 patient had echocardiogram. This revealed left ventricle cavity size is normal with an LVEF of 55 to 60%. No regional wall motion abnormalities. Left ventricle wall thickness is normal. The right ventricle cavity is normal. Aortic valve leaflets are mildly thickened. The sinus of Valsalva is dilated at 3.5 cm. The ascending aorta is dilated at 3.8 cm Can update echocardiogram in 1 year. Assessment & Plan (03/01/2024 2:40 PM EST): Patient had echocardiogram updated during hospital inpatient stay. Please see above for dimensions. Can repeat echocardiogram in 2 to 3 years for surveillance. Palpitation 08/31/2023 Syncope 08/26/2023 Overview (01/22/2024): - Has had sporadic episodes of lightheadedness occurring periodically that have been milder since 2013 - Had overt syncopal episodes in November 2021, April 2022, and possibly October 2022-each occurring while the patient was standing; she sought ER attention for each of these incidents and had a negative cardiac workup but on 1 occasion was grossly orthostatic and responded to 3 L normal saline - Reports having a Holter monitor at [facility] but we do not have these results - Echocardiogram at [facility] on 06/26/2022 showing normal left ventricular size and systolic function, normal regional wall motion with an ejection fraction of 61%, no hemodynamically significant valve disease, normal RV size and systolic function, mild ascending aortic dilatation at 3.7 cm Last Assessment & Plan: Sounds very much vasovagal in nature and patient clearly had positive orthostatic vital signs today. It is unclear why some of her episodes are more serious without much prodrome and others are preceded by prodrome. I would like to get a sense of what the Holter monitor showed at [facility]. We will call to get these results. Otherwise, she has no evidence of conduction disease on her ECG and had a very unremarkable and reassuring echocardiogram last year. I have very low suspicion for cardiac syncope. I reviewed the pathophysiology of vasovagal syncope and reviewed treatment strategies. All in all, prognosis with this condition is good but recurrent episodes may result in mechanical trauma. I recommended some preventative strategies including adequate oral hydration, especially during the hot summer months, regular aerobic exercise, leg strengthening exercises, use of athletic compression socks or stockings as necessary for lower extremity edema, avoidance of quick postural changes and other triggers, isometric exercises, and paying attention to prodromal symptoms and sitting down or lying down as soon as She experiences them. So far, she has started doing regular aerobic exercise and has noticed a reduction in burden and symptoms and frankly no further syncopal episodes. I did review that if she increase his salt intake, as is sometimes recommended, she may notice increasing lower extremity edema. She will just have to trial this and see if it works for her. I have given her a patient information handout about this condition as well so she can read some more on her own. Finally for completeness and because of symptoms of possible malar rash and sun sensitivity, I am doing basic screening labs for autoimmune conditions such as lupus and rheumatoid arthritis. She can get these drawn at her convenience. Assessment & Plan (03/01/2024 2:40 PM EST): Patient reports no episodes of syncope since being discharged from the hospital. I have talked to patient about utilizing compression stockings in addition to staying hydrated. Orders: Cardiac event monitor; Future Encounters Date Type Department Care Team Description 01/12/2025 7:00 AM EST Ancillary Procedure [facility] - [address] [place] [address] Paroxysmal atrial fibrillation (CMS/HCC V24, CMS/HCC V28) 01/09/2025 Telephone [facility] - [address] [place] [address] Lucía David MD 12/23/2024 3:00 PM EST Ancillary Procedure [facility] - [address] [place] [address] Chest pain, unspecified type (Primary Dx) 12/23/2024 Telephone [facility] - [address] [place] [phone] Lucía David MD 12/01/2024 Telephone [facility] - [address] [place] [phone] Pradip Altamirano MD 11/30/2024 1:40 PM EDT Office Visit [facility] - [address] [place] [address] Maite Lee NP Paroxysmal atrial fibrillation (CMS/HCC V24, CMS/HCC V28) (Primary Dx) 11/18/2024 Telephone [facility] - [address] [place] [phone] Pradip Altamirano MD 11/15/2024 Telephone Gastroenterology - [address] [place] [address] Alis Donis MD 11/10/2024 Telephone [facility] - [address] [place] [phone] Lucía David MD 11/02/2024 12:13 PM EDT Anesthesia Event [facility] Cardiac Personal Insurance Advisor [address] [place] [address] Ulysses Han DO McAdams, Megan, CRNA 11/02/2024 11:30 AM EDT - 11/02/2024 1:30 PM EDT Surgery [facility] Cardiac Personal Insurance Advisor [address] [place] [phone] Pradip Altamirano MD Ablation Atrial Fibrillation [04878 (CPT )] 11/02/2024 10:32 AM EDT - 11/02/2024 11:59 PM EDT Hospital Encounter [facility] Cardiac Personal Insurance Advisor [address] [place] [address] Pradip Altamirano MD Atrial fibrillation with rapid ventricular response (CMS/HCC V24, CMS/HCC V28) Discharge Disposition: Home or Self Care from Last 3 Months Immunizations Immunization Administration Dates Next Due Human Rabies, Chicken Fibrob last Cell Culture, (Rabavert) 03/31/2024,03/24/2024,03/20/2024,2024 Tdap Tetanus diptheria acell ular pertussis (Boostrix; Adacel) 7yo and older 03/17/2024 Surgical History Surgery Date Site/Laterality Comments ABLATION DONE ON 11/02/2024 AT [facility] W JPM AT [facility] Medical History Medical History Date Comments Facial laceration DX:Facial lace ration A-fib ([facility] V24, [facility] V28) Chronic back pain greater than 3 months duration Cortisol deficiency ([facility] V24) Anxiety Family History Medical History Relation Name Comments Other: afib Mother Relation Name Status Comments Mother Social History Tobacco Use Types Packs/Day [...] Orientation Straight 03/20/2024 6: 56 PM EST Obstetrics History Last Filed Vital Signs Vital Sign Reading Time Taken Comments Blood Pressure 116/78 11/30/2024 1:41 PM EDT Pulse 73 11/30/2024 1:41 PM EDT Temperature 36.6 C (97.9 F) 11/02/2024 10:57 AM EDT Respiratory Rate 13 11/02/2024 3:43 PM EDT Oxygen Saturation 97% 11/30/2024 1:41 PM EDT Inhaled Oxygen Concentration - - Weight 61.7 kg (136 lb) 11/30/2024 1:41 PM EDT Height 160 cm (5' 3 ) 11/30/2024 1:41 PM EDT Body Mass Index 24.09 11/30/2024 1:41 PM EDT Plan of Treatment Upcoming Encounters Date Type Department Care Team (Late st Contact Info) Description 02/14/2025 2:40 PM EST Office Visit [facility] - [address] [facility] [address] [place] [address] Maite Lee, POLICE DETENTION ATTENDANT [address] [place] [address] [address] [place] [address] Health Maintenance Due Date Last Done Comments Colorectal Cancer Screening: Colonoscopy 1960 Diabetes: Annual Foot Exam 01/20/1968 Diabetes: Annual Retina Eye Exam 01/20/1968 Pneumococcal Vaccine: 50+ Years (1 of 1 - PCV) 01/20/2008 Zoster Vaccines (1 of 2) 01/20/2008 Breast Cancer Screening 08/28/2019 08/27/2017 Hepatitis C Screening 01/07/2022 Medicare Annual Wellness Visit 01/07/2022 Social Influencers of Health Screening 01/07/2022 Depression Screening 02/10/2024 Diabetes: Annual Urine Albumin-Creatinine Ratio (uACR) 03/01/2024 Diabetes: Blood Sugar Control Test (HGBA1C) 03/01/2024 COVID-19 Vaccine ( - season) 2024 Influenza Vaccine (#1) 2024 Falls Risk Assessment 01/17/2025 01/18/2024 Diabetes: Annual GFR (Glomerular Filtration Rate) 10/20/2025 10/20/2024, 01/18/2024, 01/17/2024, Additional history exists Cholesterol Screening (Lipid Panel) 09/01/2028 09/02/2023 RSV Immunization Adult Patients (1 - 1-dose 75+ series) 2033 DTaP,Tdap,and Td Vaccines (4 - Td or Tdap) 03/17/2034 03/17/2024, 07/01/2023, 02/11/2011 Osteoporosis Screening (Bone Density Screening) 10/04/2034 10/04/2024, 10/04/2024, 06/15/2020, Additional history exists HIB Vaccines Aged Out No longer eligi ble based on patient's age to complete this topic HPV Vaccines Aged Out No longer eligi ble based on patient's age to complete this topic Hepatitis A Vaccines Aged Out No long er eligible based on patient's age to complete this topic Hepatitis B Vaccines Aged Out No long er eligible based on patient's age to complete this topic IPV Vaccines Aged Out No longer eligi ble based on patient's age to complete this topic MMR Vaccines Aged Out No longer eligi ble based on patient's age to complete this topic Meningococcal ACWY Vaccine Aged Out N o longer eligible based on patient's age to complete this topic Meningococcal B Vaccine Aged Out No l onger eligible based on patient's age to complete this topic RSV Immunization Patients Under 20 months Aged Out No longer eligible based on patient's age to complete this topic Varicella Vaccines Aged Out No longer eligible based on patient's age to complete this topic Medical Devices Implanted Type Area Motor Tester Device Identifier Shelf Expiration Date Model / Serial / Lot Device Clsur Vascade Mvp 6-12f Fem Art - [id number] Implanted:Qty: 2 on 11/02/2024 by Pradip Altamirano MD at [facility] Vascular Closure Devices Left: Groin [employer] 08/09/2026 [id number] / / [id number] Plug Fem Artery Closure Vascade Mvp Collagen Ster - [id number] Implanted:Qty: 1 on 11/02/2024 by Pradip Altamirano MD at [facility] Vascular Grafts Right: Groin [employer] 01/14/2026 [id number] / / [id number] Procedures Procedure Name Priority Date/Time Associated Diagnosis Comments ECG 12-LEAD Routine 12/23/2024 3:09 PM EST Chest pain, unspecified type VITAMIN B12 Routine 11/30/2024 2:28 PM EDT Decreased sense of vibration Imbalance FOLATE Routine 11/30/2024 2:28 PM EDT Decreased sense of vibration Imbalance ECG 12-LEAD Routine 11/30/2024 2:18 PM EDT Paroxysmal atrial fibrillation (CMS/HCC V24, CMS/HCC V28) ABLATION A-FIB Routine 11/02/2024 2:10 PM EDT Atrial fibrillation with rapid ventricular response (CMS/HCC V24, CMS/HCC V28) POCT ACTIVATED CLOTTING TIME, KAOLIN Routine 11/02/2024 1:51 PM EDT POCT ACTIVATED CLOTTING TIME, KAOLIN Routine 11/02/2024 1:31 PM EDT POCT ACTIVATED CLOTTING TIME, KAOLIN Routine 11/02/2024 1:11 PM EDT TH AN ENDOTRACHEAL(NO CHARGE) Routine 11/02/2024 12:48 PM EDT TYPE AND SCREEN Routine 11/02/2024 11:11 AM EDT CBC WITH AUTO DIFFERENTIAL Routine 10/20/2024 3:54 PM EDT Atrial fibrillation with rapid ventricular response (CMS/HCC V24, CMS/HCC V28) PROTHROMBIN TIME WITH INR Routine 10/20/2024 3:54 PM EDT Atrial fibrillation with rapid ventricular response (CMS/HCC V24, CMS/HCC V28) BASIC METABOLIC PANEL Routine 10/20/2024 3:54 PM EDT Atrial fibrillation with rapid ventricular response (CMS/HCC V24, CMS/HCC V28) CBC AND DIFFERENTIAL Routine 10/20/2024 3:54 PM EDT Atrial fibrillation with rapid ventricular response (CMS/HCC V24, CMS/HCC V28) BD BONE DENSITY DXA AXIAL SKELETON Routine 10/04/2024 2:55 PM EDT Age-related osteoporosis without current pathological fracture ELIZABETH SCREENING DIGITAL Routine 08/27/2017 4:11 PM EDT Encounter for screening mammogram for malignant neoplasm of breast from Last 3 Months or Most Recently Relevant to Health Maintenance Results * (ABNORMAL) Folate (11/30/2024 2:28 PM EDT) Folate >20.0(H) 2.8 - 17.0 ng/ml LAB CHEMISTRY METHOD 11/30/2024 6:00 PM EDT [facility] Blood Venous blood specimen / Unknown Venipuncture / Unknown 11/30/2024 2:28 PM EDT 11/30/2024 3:15 PM EDT Zofia Rosas MD LAB BLOOD ORDERABLES Vero l Result Performing Organization Address City/[facility]/ZIP Co de Phone Number [facility] [address] [place] [address], [place] [phone] * Vitamin B12 (11/30/2024 2:28 PM EDT) [facility] Vitamin B-12 707 250 - 900 pcg/mL LAB CHEMISTRY METHOD 11/30/2024 6:00 PM EDT [facility] Blood Venous blood specimen / Unknown Venipuncture / Unknown 11/30/2024 2:28 PM EDT 11/30/2024 3:15 PM EDT Zofia Rosas MD LAB BLOOD ORDERABLES Vero l Result Performing Organization Address [facility] Co de Phone Number [facility] [address] [place] [address], [place] [phone] * ECG 12 lead (11/30/2024 2:18 PM EDT) [facility] Ventricular Rate ECG 73 BPM GEMUSE Atrial Rate 73 BPM GEMUSE P-R Interval 130 ms GEMUSE QRS Duration 68 ms GEMUSE Q-T Interval 382 ms GEMUSE QTc 420 ms GEMUSE P Wave [place] 56 degrees GEMUSE R [place] 84 degrees GEMUSE T [place]ba 79 degrees GEMUSE ECG Interpretation Normal sinus rhythm Normal ECG When compared with ECG of 03-MAY-2024 15:13, No significant change was found Confirmed by Jairo ALTAMIRANO JOHN ([id number]) on 01/03/2025 5:27:43 PM GEMUSE 11/30/2024 1:50 PM EDT 01/03/2025 5:27 PM EST us Maite Lee NP ECG ORDERABLES Edited Resul t - Final GEMUSE * ABLATION A-FIB (11/02/2024 2:10 PM EDT) Anatomical Region Laterality Modality X-Ray Angiograph y Narrative 11/03/2024 6:55 AM EDT Successful pulmonary vein isolation and posterior wall isolation Clinical Background 64-year-old female with symptomatic paroxysmal atrial fibrillation Procedure Details After attainment informed consent the patient was brought to the EP laboratory in the fasting state and was placed under general anesthesia. After the usual sterile prep and local anesthesia with 1% lidocaine I placed 3 femoral venous sheaths in the left and right femoral veins.I advanced an intracardiac echo probe to the heart and examine the cardiac anatomy. I advanced a quadripolar catheter lead to entering AH and HV intervals which were. I advanced a transseptal Medtronic sheath into the SVC over guidewire and then withdrew until I tented the interatrial septum. After giving 12,000's of heparin I crossed in the left atrium advancing the guidewire out the left upper vein and the sheath and dilator were advanced into the mid chamber. The dilator and wire were then removed and the sheath irrigated with heparinized saline continuously throughout the procedure. An ACT was maintained above 300 seconds throughout the procedure. I made a detailed three-dimensional map using the AMISH NavX system and an advisor grid mapping catheter identifying all 4 pulmonary veins the body of the left atrial chamber and the appendage which was free of any thrombus and rather standard anatomy. I then placed a pulse select Medtronic catheter into the heart and delivered lesions to the left upper left lower right upper and right lower veins in that order. The chamber was extremely small and I could not isolate the veins without impinging upon the posterior wall and roof so I delivered lesions or from the left atrial roof across the back wall to below the left inferior pulmonary veins with subsequent mapping using the advisor grid catheter demonstrating posterior wall isolation and all 4 veins were silent with exit and entrance block noted. I then removed the catheters from the left heart. Protamine was given. Vascade closure devices at applied with 5 minutes of manual compression for hemostasis. The patient was extubated and returned to recovery in stable condition with no immediate complications. us Pradip Altamirano MD CV ELECTROPHYSIOLOGY PROCEDURE S Final Result * (ABNORMAL) POCT activated clotting time,sameer (11/02/2024 1:51 PM EDT) Only the most recent of3 resultswithin the time period is included. Activated Clotting Time Sameer 279(H) 74 - 137 sec 11/02/2024 2:01 PM EDT [facility] Blood Venous blood specimen / Unknown 11/02/2024 1:51 PM EDT 11/02/2024 2:02 PM EDT Pradip Altamirano MD LAB POINT OF CARE TE ST DOCKED DEVICE UNSOLICITED RESULTS Final Result Performing Organization Address City/State/[facility] Co de Phone Number [facility] [address] [place] [address], * TH AN ENDOTRACHEAL(NO CHARGE) (11/02/2024 12:48 PM EDT) Narrative Becky Tafoya CRNA - 11/02/2024 12:48 PM EDT Becky Tafoya CRNA 11/02/2024 12:48 PM General Information and Staff Patient location during procedure: OR Performed by: Bekcy Tafoya CRNA Authorized by: Ulysses Han DO Intubation Airway not difficult Urgency: elective Final Airway Details Successful airway: ETT Cuffed: yes Successful intubation technique: video laryngoscopy Endotracheal tube insertion site: oral Blade: Javon Blade size: #3 ETT size (mm): 7.0 Cormack-Lehane Classification: grade I - full view of glottis Placement verified by: chest auscultation Cuff volume (mL): 6 Measured from: gums ETT to gums (cm): 19 Number of attempts at approach: 1 Number of other approaches attempted: 0Final airway type: endotracheal airway Indications and Patient Condition Indications for airway management: anesthesia Sedation level: Yes Preoxygenated: yes Soft Tissue Damage: No Dentition Unchanged: Yes Patient position: neutral MILS maintained throughout Mask difficulty assessment: 2 - vent by mask + OA or adjuvant +/- NMBA Ulysses Han DO ANESTHESIA ORDERABLES Final Res ult * Type and screen (11/02/2024 11:11 AM EDT) Pathologist [facility] O 11/02/2024 1:14 PM EDT [facility] Rh Type Positive 11/02/2024 1:14 PM EDT [facility] Antibody Screen Negative 11/02/2024 1:14 PM EDT [facility] Blood Venous blood specimen / Unknown Venipuncture / Unknown 11/02/2024 11:11 AM EDT 11/02/2024 11:32 AM EDT Leatha Branyspeck POLICE DETENTION ATTENDANT LAB BLOOD BANK TEST ORDERA BLES Final Result [facility] [address] [place] [address], [place] [phone] * CBC auto differential (10/20/2024 3:54 PM EDT) [facility] WBC 5.0 4.8 - 10.8 K/mcL LAB HEMETOLOGY METHOD 10/20/2024 4:25 PM EDT [facility] RBC 4.10 3.80 - 4.80 M/[facility] LAB HEMETOLOGY METHOD 10/20/2024 4:25 PM EDT [facility] Hemoglobin 12.8 11.5 - 16.0 g/dL LAB HEMETOLOGY METHOD 10/20/2024 4:25 PM EDT [facility] Hematocrit 39.5 35.0 - 47.0 % LAB HEMETOLOGY METHOD 10/20/2024 4:25 PM EDT [facility] MCV 97.5 79.0 - 98.0 FL LAB HEMETOLOGY METHOD 10/20/2024 4:25 PM EDT [facility] MCH 31.6 27.0 - 32.0 pcg LAB HEMETOLOGY METHOD 10/20/2024 4:25 PM EDT [facility] MCHC 32.4 32.0 - 37.0 g/dL LAB HEMETOLOGY METHOD 10/20/2024 4:25 PM EDT [facility] RDW 13.6 11.0 - 15.0 % LAB HEMETOLOGY METHOD 10/20/2024 4:25 PM EDT [facility] Platelets 237 130 - 400 K/mcL LAB HEMETOLOGY METHOD 10/20/2024 4:25 PM EDT [facility] MPV 9.4 7.0 - 11.0 FL LAB HEMETOLOGY METHOD 10/20/2024 4:25 PM EDT [facility] NRBC 0.0 <1.0 % LAB HEMETOLOGY METHOD 10/20/2024 4:25 PM EDT [facility] NRBC Absolute 0.00 <0.10 K/mcL LAB HEMETOLOGY METHOD 10/20/2024 4:25 PM EDT [facility] Neutrophils Relative 45.2 % LAB HEMETOLOGY METHOD 10/20/2024 4:25 PM EDT [facility] Lymphocytes Relative 38.4 % LAB HEMETOLOGY METHOD 10/20/2024 4:25 PM EDT [facility] Monocytes Relative 9.6 % LAB HEMETOLOGY METHOD 10/20/2024 4:25 PM EDT [facility] Eosinophils Relative 5.4 % LAB HEMETOLOGY METHOD 10/20/2024 4:25 PM EDT [facility] Basophils Relative 1.2 % LAB HEMETOLOGY METHOD 10/20/2024 4:25 PM EDT [facility] Immature Granulocytes Relative 0.2 % LAB HEMETOLOGY METHOD 10/20/2024 4:25 PM EDT [facility] Neutrophils Absolute 2.26 1.50 - 7.00 K/mcL LAB HEMETOLOGY METHOD 10/20/2024 4:25 PM EDT [facility] Lymphocytes Absolute 1.92 1.00 - 5.00 K/mcL LAB HEMETOLOGY METHOD 10/20/2024 4:25 PM EDT [facility] Monocytes Absolute 0.48 0.20 - 1.00 K/mcL LAB HEMETOLOGY METHOD 10/20/2024 4:25 PM EDT [facility] Eosinophils Absolute 0.27 0.00 - 0.50 K/mcL LAB HEMETOLOGY METHOD 10/20/2024 4:25 PM EDT [facility] Basophils Absolute 0.06 0.00 - 0.20 K/mcL LAB HEMETOLOGY METHOD 10/20/2024 4:25 PM EDT [facility] Immature Granulocytes Absolute 0.01 0.00 - 0.03 K/mcL LAB HEMETOLOGY METHOD 10/20/2024 4:25 PM EDT [facility] Blood Venous blood specimen / Unknown Venipuncture / Unknown 10/20/2024 3:54 PM EDT 10/20/2024 4:06 PM EDT us Pradip Altamirano MD LAB BLOOD ORDERABLES Final Res ult [facility] [address] [place] [address], * (ABNORMAL) Prothrombin time with INR (10/20/2024 3:54 PM EDT) Protime 14.1(H) 10.6 - 13.9 sec LAB COAGULATION METHOD 10/20/2024 4:40 PM EDT [facility] INR 1.1 LAB COAGULATION METHOD 10/20/2024 4:40 PM EDT [facility] Blood Venous blood specimen / Unknown Venipuncture / Unknown 10/20/2024 3:54 PM EDT 10/20/2024 4:06 PM EDT us Pradip Altamirano MD LAB BLOOD ORDERABLES Final Res ult [facility] [address] [place] [address], * (ABNORMAL) Basic metabolic panel (10/20/2024 3:54 PM EDT) Sodium 140 133 - 145 mmol/L LAB CHEMISTRY METHOD 10/20/2024 4:42 PM [facility] Potassium 3.7 3.5 - 5.5 mmol/L LAB CHEMISTRY METHOD 10/20/2024 4:42 PM [facility] Chloride 104 96 - 110 mmol/L LAB CHEMISTRY METHOD 10/20/2024 4:42 PM T [facility] CO2 32 21 - 32 mmol/L LAB CHEMISTRY METHOD 10/20/2024 4:42 PM [facility] Anion Gap 4 3 - 11 LAB CHEMISTRY METHOD 10/20/2024 4:42 PM [facility] Glucose 103(H) 70 - 100 mg/dL LAB CHEMISTRY METHOD 10/20/2024 4:42 PM [facility] BUN 15 5 - 25 mg/dL LAB CHEMISTRY METHOD 10/20/2024 4:42 PM [facility] Creatinine 0.74 0.50 - 1.10 mg/dL LAB CHEMISTRY METHOD 10/20/2024 4:42 PM [facility] eGFR 89 >=60 mL/min/1. 73m2 LAB CHEMISTRY METHOD 10/20/2024 4:42 PM [facility] Comment:Calculation based on the Chronic Kidney Disease Epidemiology Collaboration (CKD-EPI) equation refit without adjustment for race. BUN/Creatinine Ratio 20.3 LAB CHEMISTRY METHOD 10/20/2024 4:42 PM EDT [facility] Calcium 8.9 8.5 - 10.5 mg/dL LAB CHEMISTRY METHOD 10/20/2024 4:42 PM EDT [facility] Blood Venous blood specimen / Unknown Venipuncture / Unknown 10/20/2024 3:54 PM EDT 10/20/2024 4:05 PM EDT us Pradip Altamirano MD LAB BLOOD ORDERABLES Final Res ult [facility] [address] [place] [address], [place] [phone] * BD Bone Density DXA Axial Skeleton (10/04/2024 2:55 PM EDT) Anatomical Region Laterality Modality Wrist, Hip, L-spine Bone Densito metry 10/05/2024 10:2 4 AM EDT Impressions 10/05/2024 10:36 AM EDT 1. Osteoporosis. There has been an increase of 1.2% in bone mineral density in the lumbar spine since the prior examination of 06/14/2020. There has been a decrease of 6.0% in bone mineral density in the right femur and a decrease of 3.0% in bone mineral density in the left femur. 2. FRAX analysis yields a 10-year probability of major osteoporotic fracture of 19.1% and a 10-year probability of hip fracture of 3.3%. Code 19199 -------- FINAL REPORT -------- Dictated By: Huan Sung Dictated Date: 10/05/2024 10:24 ET Assigned Physician: Huan Sung Reviewed and Electronically Signed By: Huan Sung Signed Date: 10/05/2024 10:36 ET Workstation ID: [id number] Transcribed By: Self Edit Transcribed Date: 10/05/2024 10:24 ET Narrative 10/05/2024 10:36 AM EDT HISTORY: The patient is a 64-year-old postmenopausal female with clinical concern for metabolic bone disease. FINDINGS: Dual energy x-ray absorptiometry of the lumbar spine and femurs is performed. The mean bone mineral density at L1-2 is 1.132 gm/cm2 which is 97% of that of young normals and 118% of that of age matched controls. This yields a T-score of -0.3 and a Z-score of 1.4 and there is therefore no evidence of osteoporosis or osteopenia here. The mean bone mineral density of the femurs bilaterally is 0.738 gm/cm2 which is 73% of that of young normals and 88% of that of age matched controls. This yields a T-score of -2.1 and a Z-score of -0.8 which is diagnostic of osteopenia. However, the T-score of the left femoral neck is -2.5 which is diagnostic of osteoporosis. Procedure Note Huan Sung MD - 10/05/2024 HISTORY: The patient is a 64-year-old postmenopausal female with clinicalconcern for metabolic bone disease. FINDINGS: Dual energy x-ray absorptiometry of the lumbar spine and femursis performed. The mean bone mineral density at L1-2 is 1.132 gm/cm2 whichis 97% of that of young normals and 118% of that of age matched controls.This yields a T-score of -0.3 and a Z-score of 1.4 and there is thereforeno evidence of osteoporosis or osteopenia here. The mean bone mineral density of the femurs bilaterally is 0.738 gm/jp7deijr is 73% of that of young normals and 88% of that of age matchedcontrols. This yields a T-score of -2.1 and a Z-score of -0.8 which isdiagnostic of osteopenia. However, the T-score of the left femoral neck is-2.5 which is diagnostic of osteoporosis. IMPRESSION: 1. Osteoporosis. There has been an increase of 1.2% in bone mineraldensity in the lumbar spine since the prior examination of 06/14/2020.There has been a decrease of 6.0% in bone mineral density in the rightfemur and a decrease of 3.0% in bone mineral density in the left femur. 2. FRAX analysis yields a 10-year probability of major osteoporoticfracture of 19.1% and a 10-year probability of hip fracture of 3.3%. Code 70968 -------- FINAL REPORT -------- Dictated By: Huan Sung Dictated Date: 10/05/2024 10:24 ET Assigned Physician: Huan Sung Reviewed and Electronically Signed By: Huan Sung Signed Date: 10/05/2024 10:36 ET Workstation ID: [id number] Transcribed By: Self Edit Transcribed Date: 10/05/2024 10:24 ET us Ada Price MD IMG DXA PROCEDURES Final Resu lt * ELIZABETH SCREENING DIGITAL (08/27/2017 4:11 PM EDT) Anatomical Region Laterality Modality Mammography 08/27/2017 2:10 PM EDT Narrative 08/27/2017 4:11 PM EDT Diagnostic Imaging Department [address] [place] [address] Patient: ELZA ZHAO Cathy Moreira/Age/Sex: 1960 - 57 - F Unit#: [id number] [facility]Ordering Site: DIGSC/SPMAM Ordering Physician: ADA PRICE Elizabeth Screening Digital - 08/27/17 - 1451 INDICATION: SCREENING COMPARISON: [facility] mammograms dating back to 01/20/2013 FINDINGS: CC and MLO views of the breasts were obtained, using full field digital mammography with 3D tomosynthesis views in the MLO projection. Computer aided detection with the Accumetrics 7.2-H was employed. The breasts contain scattered fibroglandular tissues. No suspicious masses, suspicious microcalcifications, or areas of architectural distortion are identified. Rare benign-appearing breast calcifications are present bilaterally. There are no secondary signs of breast malignancy. Compared to the prior exam, no adverse interval change. IMPRESSION: No specific mammographic evidence of breast malignancy. Lack of a mammographic finding in the presence of a clinically suspicious palpable abnormality does not preclude the possibility of malignancy or alter the indications for biopsy. BI-RADS - Category 2 - Benign finding 3342F, 7025F Annual screening mammography is recommended. Patient entered into a reminder system with a target date for the next mammogram. [id number] / [id number]) , [id number] Dictating Physician: ALEC EDMONDSON MD Electronically Signed by: ALEC EDMONDSON MD Dic Date/Time: 08/27/17 1608 Sign date/Time: 08/27/17 1611 Procedure Note Alec Edmondson MD - 01/28/2022 Diagnostic Imaging Department [address] [place] [id number] Patient: OLIVAFRANCHESKAELZA Morgan /Age/Sex: 1960 - 57 - F Unit#: [id number] Location/Status: [facility] CLI Mnemonic/Ordering Site: [facility] Ordering Physician: ADA PRICE Elizabeth Screening Digital - 08/27/17 - 1451 INDICATION: SCREENING COMPARISON: [facility] mammograms dating back to 01/20/2013 FINDINGS: CC and MLO views of the breasts were obtained, using full field digital mammography with 3D tomosynthesis views in the MLO projection. Computeraided detection with the Accumetrics 7.2-H was employed. The breasts contain scattered fibroglandular tissues. No suspicious masses, suspicious microcalcifications, or areas ofarchitectural distortion are identified. Rare benign-appearing breast calcificationsare present bilaterally. There are no secondary signs of breast malignancy. Compared to the prior exam, no adverse interval change. IMPRESSION: No specific mammographic evidence of breast malignancy. Lack of a mammographic finding in the presence of a clinicallysuspicious palpable abnormality does not preclude the possibility of malignancy oralter the indications for biopsy. BI-RADS - Category 2 - Benign finding 3342F, 7025F Annual screening mammography is recommended. Patient entered into a reminder system with a target date for the next mammogram. G0202 / [id number] , [id number] Dictating Physician: ALEC EDMONDSON MD Electronically Signed by: ALEC EDMONDSON MD Dic Date/Time: 08/27/17 1608 Sign date/Time: 08/27/17 1611 Ada Price MD IMG BI PROCEDURES Final Resul t from Last 3 Months or Most Recently Relevant to Health Maintenance Insurance [facility] MEDIC[facility] Member Subscriber Plan / Payer (Ef fective 2023-Present) Name:ELZA ZHAO Relation to Subscriber:Self Name:Elza Zhao Payer ID:[id number] Group ID:[id number] Type:Not on file Address: [place] [address] [place] [phone] Advance Directives * Full Code - Default (Latest Code Status on File) Date Activated Date Inactivated Comments 01/15/2024 8:24 PM 01/18/2024 4:47 PM This is orde r is used when code status has not been discussed with the patient, or code status is otherwise unknown/unconfirmed To update the patient's code status, place a code status order. Do not modify or discontinue any currently active code status orders. Care Teams Platform Engineer Relationship Specialty Start Date End Date Ada Price MD [address] [place] [address] PCP - General 01/21/15
--- OUTSIDE RECORDS SUMMARY | 2025-01-12 22:11 | XMS_ITS | Encounter Summary ---
Author Organization [facility] Address [address] [place] [address] [place] [address] Care Team Providers Care Fruit Pitter Name Role Phone Alyssa Campo MD Primary Care Provider [phone] Reason for Visit * Reason Comments Med Refill Encounter Details Date Type Department Care Team ([facility] Contact Info) Description 06/07/2023 Refill [facility] [address] [place] [address] Alyssa Campo MD [address] [place] [address] Anxiety Social History Tobacco Use Types Packs/Day Years [...] Upcoming Encounters Date Type Department Care Team ([facility] Contact Info) Description 03/16/2025 3:15 PM EST Office Visit [facility] [address] [place] [address] Alyssa Campo MD [address] [place] [address] documented as of this encounter Visit Diagnoses Diagnosis Anxiety Anxiety state, unspecified documented in this encounter Care Teams Fruit Pitter Relationship Specialty Start Date End Date Alyssa Campo MD [address] [place] [address] PCP - General Family Medicine 02/09/18 documented as of this encounter
--- OUTSIDE RECORDS SUMMARY | 2025-01-12 22:11 | XMS_ITS | Encounter Summary ---
Author Organization [facility] Address [address] [place] [address] [place] [address] Care Team Providers Care Lineman Service Or Work Dispatcher Name Role Phone Alyssa Campo MD Primary Care Provider [phone] Reason for Visit * Reason Onset Date Comments Chart Prep 01/11/2025 Encounter Details Date Type Department Care Team ([facility] st Contact Info) Description 01/11/2025 Telephone [facility]S [address] [place], [place] [phone] Alyssa Campo MD [address] [place] [address] Chart Prep Social History Tobacco Use Types Packs/Day Years [...] encounter Miscellaneous Notes * Telephone Encounter - [facility] [place] - 01/11/2025 3:43 PM EST Chart Prep Labs: not applicable Images: not applicable Referrals: not applicable Vaccines due: Covid, Flu, PCV20, and Zoster Screenings: colonoscopy, pap smear, eye exam, and foot exam Overdue care gaps: A1c, Glucose, SDOH, and Tobacco documented in this encounter Plan of Treatment Upcoming Encounters Date Type Department Care Team (Late st Contact Info) Description 03/16/2025 3:15 PM EST Office Visit [facility] [address] [place] [address] Alyssa Campo MD [address] [place] [address] documented as of this encounter Visit Diagnoses Not on filedocumented in this encounter Additional Health Concerns Assessment Noted Time PHQ-9 Depression Total Score: 4 05/13/19 25 4:03 PM EDT documented as of this encounter Care Teams Lineman Service Or Work Dispatcher Relationship Specialty Start Date End Date Alyssa Campo MD [address] [place] [address] PCP - General Family Medicine 02/09/18 documented as of this encounter
--- OUTSIDE RECORDS SUMMARY | 2025-01-12 22:11 | XMS_ITS | Encounter Summary ---
Author Organization [facility] [employer] Address [address] [place] [address] Care Team Providers Care Supervisor Mending Name Role Phone Alyssa Campo MD Primary Care Provider [phone] Encounter Details Date Type Department Care Team ([facility] st Contact Info) Description 03/02/2024 Orders Only [facility] [address] [place], [place] [id number] Provider, MD Amos Social History Tobacco Use [...] Description 03/16/2025 3:15 PM EST Office Visit [facility] MED & PEDS [address] [place] [address] Alyssa Campo MD [address] [place] [address] documented as of this encounter Procedures Procedure Name Priority Date/Time Associated Diagnosis Comments ECG 12-LEAD Routine 03/01/2024 11:46 AM EST documented in this encounter Results * ECG 12 lead (03/01/2024 11:46 AM EST) us Historical Provider ECG ORDERABLES Final Res ult documented in this encounter Visit Diagnoses Not on filedocumented in this encounter Additional Health Concerns Assessment Noted Time PHQ-9 Depression Total Score: 2 09/10/19 24 3:40 PM EDT documented as of this encounter Care Teams Supervisor Mending Relationship Specialty Start Date End Date Alyssa Campo MD [address] [place] [address] PCP - General Family Medicine 02/09/18 documented as of this encounter
--- OUTSIDE RECORDS SUMMARY | 2025-01-12 22:11 | XMS_ITS | Clinical Summary ---
Author Organization [facility] Address [address] [place] [address] 7t [place] [address] Care Team Providers Care Mold Stamper And Repairer Name Role Phone Alyssa Campo MD Primary Care Provider [phone] Allergies No known active allergies Medications * This document contains information received from the source organization and may not represent a complete record from that organization. dilTIAZem CD (Cardizem CD) 120 MG 24 hr capsule Take 1 capsule by mouth Once per day. 01/18/20 24 025 Active Calcipotriene 0.005 % solution APPLY TO THE SCALP 1-2X DAILY NEEDED. Active Fluocinolone Acetonide Scalp 0.01 % oil APPLY TO SCALP LET SIT OVERNIGHT, THEN WASH OUT IN THE MORNING ONCE WEEKLY 09/08/19 24 Active lidocaine (Xylocaine) 5 % ointmentIndicat ions:Acute pain of right knee Apply topically if needed for mild pain. 50 g 09/21/19 25 026 Active cyclobenzaprine (Flexeril) 10 MG tabletIndicatio ns:Chronic shoulder pain, unspecified laterality TAKE 1 TABLET BY MOUTH EVERY DAY NEEDED 30 tablet 11/02/19 25 Active hydrocortisone (Cortef) 10 MG tablet TAKE 1 TABLET BY MOUTH TWICE A DAY 60 tablet 1 11/30/19 25 Active Eliquis 5 MG tablet TAKE 1 TABLET BY MOUTH TWICE A DAY 60 tablet 5 12/29/19 25 Active venlafaxine XR (Effexor XR) 75 MG 24 hr capsule Take 1 capsule (75 mg) by mouth Once per day. Do not crush or chew. 30 capsule 11 01/13/20 25 026 Active flecainide (Tambocor) 100 MG tablet Take 1 tablet by mouth every 12 (twelve) hours. 01/17/20 24 025 Discontinued(Th erapy completed) apixaban (Eliquis) 5 MG tablet Take 1 tablet (5 mg) by mouth 2 times daily. 60 tablet 5 01/26/20 24 025 Discontinued venlafaxine XR (Effexor XR) 37.5 MG 24 hr capsule Take 1 capsule (37.5 mg) by mouth Once per day. Do not crush or chew. 30 capsule 11 01/26/20 24 025 Discontinued gabapentin (Neurontin) 100 MG capsule TAKE 2 CAPSULES BY MOUTH AT BEDTIME 60 capsule 3 10/20/19 25 025 Discontinued venlafaxine XR (Effexor XR) 37.5 MG 24 hr capsule TAKE 1 CAPSULE BY MOUTH EVERY DAY. DO NOT CRUSH OR CHEW. 90 capsule 3 12/30/19 25 025 Discontinued(In effective) Active Problems Problem Noted Date Diagnosed Date Stenosis of cervical spine with myelopathy ([facility]) 01/12/2025 Paroxysmal atrial fibrillation ([facility]) 024 Aortic ectasia 01/26/2024 Adrenal insufficiency 01/26/2024 Syncope 09/14/2023 Rotator cuff arthropathy of left shoulder 2023 Low back pain 06/13/2022 Bilateral hearing loss 11/28/2019 Arthropathy of right shoulder 03/18/2018 Disorder of lumbosacral intervertebral disc 12/10 Pain in finger 07/09/2017 Laryngeal spasm 06/02/2017 Generalized anxiety disorder 06/27/2015 Seasonal allergic rhinitis 06/27/2015 Dermatitis 05/19/2013 Animal bite of hand 03/23/2013 Backache 12/05/2010 Insomnia 12/05/2010 Acute upper respiratory infection 11/22/2010 Pure hypercholesterolemia 03/19/2010 Resolved Problems Problem Noted Date Diagnosed Date Resolved Date Diabetes due to undrl condit ion w oth diabetic neuro comp 01/26/2024 01/12/2025 Encounters Date Type Department Care Team Description 01/12/2025 3:15 PM EST Office Visit [facility] [address] [place] [address] Alyssa Campo MD Mold exposure (Primary Dx); Dietary counseling; Exercise counseling; Chronic bilateral low back pain without sciatica; Generalized anxiety disorder; Adrenal insufficiency (CMS/HCC); Paroxysmal atrial fibrillation (CMS/HCC) (HCC); Stenosis of cervical spine with myelopathy (CMS/HCC) (HCC) 01/12/2025 Travel 01/11/2025 Telephone [facility] [address] [place] [address] Alyssa Campo MD Chart Prep 01/10/2025 Orders Only [facility] [address] [place] [address] Amos Mcfadden MD 01/06/2025 Travel 12/29/2024 Refill [facility] [address] [place] [address] Alyssa Campo MD 12/28/2024 Refill [facility] [address] [place] [address] Alyssa Campo MD 11/28/2024 Refill [facility] [address] [place] [address] Alyssa Campo MD 10/31/2024 Refill [facility] [address] [place] [address] Alyssa Campo MD Chronic shoulder pain, unspecified laterality 10/19/2024 Refill [facility] [address] [place] [address] Alyssa Campo MD from Last 3 Months Immunizations Immunization Administration Dates Next Due Rabies - IM Fibroblast Culture ,03/24/2024,03/20/2024,2024 Td (adult), 5 Lf tetanus tox oid, preservative free, adsorbed 07/01/2023 Tdap 03/17/2024,02/11/2011 Social History Tobacco Use Types Packs/Day Years Used Date Smoking Tobacco: Never Passive Smoke Exposure: Never Smokeless Tobacco: Never Tobacco Cessation:Counseling Given: No Depression Answer Date Recorded Patient Health Questionnaire-9 [...] Orientation Straight 12/09/2021 10 :19 AM EDT Last Filed Vital Signs Vital Sign Reading Time Taken Comments Blood Pressure 140/88 01/12/2025 3:40 PM EST Pulse 90 01/12/2025 3:40 PM EST Temperature 36.1 C (97 F) 01/12/2025 3:40 PM EST Respiratory Rate 16 01/12/2025 3:40 PM EST Oxygen Saturation 96% 09/20/2024 1:54 PM EDT Inhaled Oxygen Concentration - - Weight 63 kg (139 lb) 01/12/2025 3:40 PM EST Height 157.5 cm (5' 2 ) 09/20/2024 1:54 PM EDT Body Mass Index 25.42 09/20/2024 1:54 PM EDT Plan of Treatment Upcoming Encounters Date Type Department Care Team (Late st Contact Info) Description 03/16/2025 3:15 PM EST Office Visit [facility] [address] [place] [address] Alyssa Campo MD [address] [place] [address] Health Maintenance Due Date Last Done Comments CT Colonography 1960 Colonoscopy 1960 Colorectal Cancer Screening 1960 FIT DNA/Cologuard 1960 FIT 1960 FOBT 1960 Sigmoidoscopy 1960 Hepatitis C Screening 01/20/1976 Pneumococcal Vaccine: 50+ Years (1 of 1 - PCV) 01/20/2008 Zoster Vaccines (1 of 2) 01/20/2008 HPV/Cotest 01/27/2024 01/26/2019 SDOH Screening 06/24/2024 06/25/2023 COVID-19 Vaccine (1 - 2024-2 6 season) 2024 Influenza Vaccine (#1) 2024 Alcohol/Substance Use Screening 05/12/2025 05/12/2024 Depression Screening 05/12/2025 05/12/2024, 05/12/2024 Tobacco Screening 01/12/2026 01/12/2025 Mammogram 09/21/2026 09/21/2024, 06/26/2023, 06/28/2021 Pap Smear 10/06/2027 10/05/2024, 01/26/2019 RSV Patients and Patients Aged 60 years or older (1 - 1-dose 75+ series) 2033 DTaP/Tdap/Td Vaccines (4 - T d or Tdap) 03/17/2034 03/17/2024, 07/01/2023, 02/11/2011 HIB Vaccines Aged Out No longer eligi [...] patient's age to complete this topic Meningococcal Vaccine Aged Out No jose belgica eligible based on patient's age to complete this topic RSV under 20 months Aged Out No longe r eligible based on patient's age to complete this topic Rotavirus Vaccines Aged Out No longer eligible based on patient's age to complete this topic Procedures Procedure Name Priority Date/Time Associated Diagnosis Comments ECG 12-LEAD Routine 11/30/2024 PAP/HPV Routine 10/05/2024 MAMMOGRAPHY Routine 09/21/2024 12:10 PM EDT PAP/HPV Routine 01/26/2019 from Last 3 Months or Most Recently Relevant to Health Maintenance Results * ECG 12 lead (11/30/2024) Historical Provider ECG ORDERABLES Final Res ult * HM PAP/HPV (10/05/2024) Only the most recent of2 resultswithin the time period is included. Pap Smear 1. NILM 1. NILM Narrative Cathy Hunt - 10/05/2024 Results in care everywhere under labs Historical Provider HEALTH MAINTENANCE Edited Result - Final * Mammography (09/21/2024 12:10 PM EDT) Anatomical Region Laterality Modality Other Historical Provider HEALTH MAINTENANCE Final Result from Last 3 Months or Most Recently Relevant to Health Maintenance Insurance [facility] OPTIONS (O D-SNP) Care Teams Mold Stamper And Repairer Relationship Specialty Start Date End Date Alyssa Campo MD [address] [place] [address] PCP - General Family Medicine 02/09/18
--- OUTSIDE RECORDS SUMMARY | 2025-01-12 22:11 | XMS_ITS | Encounter Summary ---
Author Organization [employer] Address [address] [facility] 7 [place] [address] Care Team Providers Care Electric Range Assembler Name Role Phone Alyssa Campo MD Primary Care Provider [phone] Reason for Visit * Reason Onset Date Comments Referral 03/07/2024 Encounter Details Date Type Department Care Team ([facility] st Contact Info) Description 03/07/2024 Telephone [facility] MEDICINE [address] [place] [address] Alyssa Campo MD [address] [place] [address] Referral Social History Tobacco Use Types Packs/Day [...] encounter Miscellaneous Notes * Telephone Encounter - Annamarie Busby - 04/15/2024 3:36 PM EST Tc from pt regarding referral for endocrinology. Pt is requesting . Pt stated she was advise by facility to contact PCP and request a new referral. * Telephone Encounter - Bibi Bolivar - 03/25/2024 1:42 PM EST Letter mailed to patient with information. * Telephone Encounter - Mikael Niño - 03/24/2024 4:00 PM EST Tc from pt regarding status of prior message, Contact pt at [phone] * Telephone Encounter - Bibi Bolivar - 03/09/2024 4:32 PM EST Referral was already faxed to [facility] will follow up with office. * Telephone Encounter - Alejandra Bolivar - 03/07/2024 4:02 PM EST Tc from pt notifying referral that was sent to endocrinology in the [facility] is no longer available as provider is not there anymore.pt notify provider is in [facility]. [address] [place] [id number]. Phone number [phone] documented in this encounter Plan of Treatment Upcoming Encounters Date Type Department Care Team ([facility] st Contact Info) Description 03/16/2025 3:15 PM EST Office Visit [facility] [address] [place] [address] Alyssa Campo MD [address] [place] [address] documented as of this encounter Visit Diagnoses Not on filedocumented in this encounter Additional Health Concerns Assessment Noted Time PHQ-9 Depression Total Score: 2 09/10/19 24 3:40 PM EDT documented as of this encounter Care Teams Electric Range Assembler Relationship Specialty Start Date End Date Alyssa Campo MD [address] [place] [address] PCP - General Family Medicine 02/09/18 documented as of this encounter
--- OUTSIDE RECORDS SUMMARY | 2025-01-12 22:11 | XMS_ITS | Encounter Summary ---
Author Organization [employer] Address [address] [place] [address] 7 [place] [address] Care Team Providers Care Fitness Centre Manager Name Role Phone Alyssa Campo MD Primary Care Provider [phone] Reason for Visit * Reason Comments Med Refill Encounter Details Date Type Department Care Team ([facility] st Contact Info) Description 02/17/2024 Refill [facility] MED & PEDS [address] [place], [place] [id number] Alyssa Campo MD [address] [place] [address] Social History Tobacco Use Types Packs/Day Years [...] Description 03/16/2025 3:15 PM EST Office Visit [facility] MED & PEDS [address] [place] [address] Alyssa Campo MD [address] [place] [address] documented as of this encounter Visit Diagnoses Not on filedocumented in this encounter Additional Health Concerns Assessment Noted Time PHQ-9 Depression Total Score: 2 09/10/19 24 3:40 PM EDT documented as of this encounter Care Teams Fitness Centre Manager Relationship Specialty Start Date End Date Alyssa Campo MD [address] [place] [address] PCP - General Family Medicine 02/09/18 documented as of this encounter
--- OUTSIDE RECORDS SUMMARY | 2025-01-12 22:11 | XMS_ITS | Data Portability ---
Author Organization [facility], [facility] Address [address] [place] [address] Care Team Providers Care Dross Puller Name Role Phone Unavailable OTHER HIM CCA OTHER Assessment Encounter Date Assessment Date Assessment LastModified by Organization Details LastModified Time 11/27/2023 11/27/2023 63 yo F with 12d of intermittent umbilical pain (lasts few mins) and nausea w/o vomiting. Has been eating toast and tea/liquids, both because she has low appetite and fear of eating. Reports that she did have ~1 week of diarrhea that has since resolved. No BM in 2-3 days (normally has BM daily). Able to drink plenty of fluids to stay hydrated. Pt's sister recently admitted with sepsis and ecoli, pt is anxious that she has something similar. No F/C. No vaginal bleeding. VS wnl. Abd soft, NTND, no R/G per medic exam. Urine dip +LE, +blood, neg nitrites Rapid COVID/flu neg #viral gastro - hx and exam not c/w acute intraabd infection or surgical abd. Will give 1 dose of PO zofran 4mg now and have sent 5 tabs of zofran to use for N/V. Advised to call PCP today or tomorrow to discuss visit to follow up sxs and potential imaging. For PCP: consider abd US or TVUS pending evolution of sxs; will need repeat UA for microscopic hematuria. [email or web address] Not available 11/27/2023 15:48:34 Plan of Treatment Reminders Order Date Submit Date Provider Last Modified By Organization Details Last Modified Time Details Appointments None recorded. Lab urinalysis, dipstick 2023 024 [email or web address] [facility], [address] [place] [address], [phone] 15:39:01 rapid SARS CoV 2 Ag, QL IA, respiratory specimen 2023 024 [email or web address] 7 [facility], [address] [place] [address], [address] [place] [address] 15:38:10 rapid flu (A+B) 2023 024 [email or web address] 7 [facility], [address] [place] [address], [phone] 15:38:12 Referral None recorded. Procedures None recorded. Surgeries None recorded. Imaging None recorded. Medication Orders ondansetron 4 mg disintegrat ing tablet 2023 [email or web address] Not available 15:37:44 Zofran 4 mg tablet 2023 [facility][id number], [address] [place], [address], 15:37:46 Patient TargetsNo targets recorded. Patient InstructionsNo instructions recorded. Reason for Referral None Reported. Results Created Date Observation Date Name Description Value Unit Range Abnormal Flag Note LastModifiedBy Organization Detail LastModifiedTime 11/27/1911/27/2023 urina lysis , dipst ick Leukocytes + Not Available [facility] [address] [place] [address], [phone] 11/27/2023 15:38:48 11/27/1911/27/2023 urina lysis , dipst ick Nitrite negati ve Not Available [facility] - [facility] [address] [place] [address], [address] [place] [address] 11/27/2023 15:38:48 11/27/1911/27/2023 urina lysis , dipst ick Blood + Not Available Main - [facility] [address] [place] [address], [phone] 11/27/2023 15:38:48 11/27/1911/27/2023 rapid flu (A+B) Flu negati ve Not Available [facility] - [facility] [address] [place] [address], [phone] 11/27/2023 15:37:59 11/27/1911/27/2023 rapid SARS CoV 2 Ag, QL IA, respi rator y speci men rapid SARS CoV 2 Ag, QL IA, respiratory specimen negati ve Not Available Main - [facility] ed [address] [place] [address], [phone] 11/27/2023 15:37:56 Result Notes None recorded. Medical Equipment None Reported. Medications Name Sig Start Date Stop Date Status Note LastModified by Organization Details LastModified Time cyclobenzapri ne 10 mg tablet TAKE 1 TABLET BY MOUTH EVERY DAY NEEDED active Not Available Not Available No t Available ketoconazole 2 % shampoo LET SIT ON SCALP 10 MIN BEFORE SHOWERING THEN LATHER AND RINSE 1-2 TIMES WEEKLY active Not Available Not Available No t Available azithromycin 250 mg tablet TAKE 2 TABLETS BY MOUTH TODAY, THEN TAKE 1 TABLET DAILY FOR 4 DAYS DIRECTED active Not Available Not Available No t Available meloxicam 15 mg tablet TAKE 1 TABLET BY MOUTH EVERY DAY NEEDED active Not Available Not Available No t Available ondansetron HCl 4 mg tablet TAKE 1 TABLET DAILY NEEDED NAUSEA/VOM ITING active Not Available Not Available No t Available sertraline 100 mg tablet TAKE 1 AND 1/2 TABLETS DAILY BY MOUTH active Not Available Not Available No t Available metronidazole 500 mg tablet TAKE 1 TABLET BY MOUTH THREE TIMES A DAY FOR 5 DAYS active Not Available Not Available No t Available cephalexin 500 mg capsule TAKE 1 CAPSULE BY MOUTH THREE TIMES A DAY FOR 7 DAYS active Not Available Not Available No t Available metronidazole 0.75 % topical cream APPLY THIN LAYER TO AFFECTED AREAS ON THE FACE 1-2 TIMES DAILY. active Not Available Not Available No t Available gabapentin 300 mg capsule TAKE 1 CAPSULE BY MOUTH THREE TIMES A DAY active Not Available Not Available No t Available mupirocin 2 % topical ointment APPLY 3 TIMES A DAY FOR 1 WEEK TO SINGLE AREA active Not Available Not Available No t Available gabapentin 100 mg capsule TAKE 2 CAPSULES BY MOUTH AT BEDTIME active Not Available Not Available N ot Available calcipotriene 0.005 % scalp solution APPLY TO THE SCALP 1-2X DAILY NEEDED. active Not Available Not Available N ot Available cefuroxime axetil 500 mg tablet TAKE 1 TABLET BY MOUTH TWICE A DAY FOR 5 DAYS active Not Available Not Available No t Available ipratropium bromide 42 mcg (0.06 %) nasal spray TAKE 2 SPRAYS (INTRANASA L) 3 TIMES PER DAY FOR 14 DAYS active Not Available Not Available No t Available clobetasol 0.05 % scalp solution APPLY TO SCALP 1-2X DAILY NEEDED FOR ITCHING FOR 2 WEEKS, BREAK 1 WEEK, REPEAT NEEDED active Not Available Not Available No t Available loratadine 10 mg tablet TAKE 1 TABLET BY MOUTH EVERY DAY active Not Available Not Available No t Available fluocinolone 0.01 % scalp oil and shower cap APPLY TO SCALP LET SIT OVERNIGHT, THEN WASH OUT IN THE MORNING ONCE WEEKLY active Not Available Not Available No t Available GaviLyte-G 236 gram-22.74 gram-6.74 gram-5.86 gram oral solution MIX AND DRINK 8 OUNCE BY MOUTH DIRECTED active Not Available Not Available No t Available Vitals Date Recorded Body temperature Oxygen saturation Heart rate Respiratory rate Systolic And Diastolic Provider Name and Address Organization Details Last Updated DateTime 4 97.6 [degF] 98 % 68 /min 16 /min 110/78 mm[Hg] Not Available [facility] - production 4 15:09:22 Social History None recorded. Functional Status None recorded. Mental Status None recorded. Family History Nothing Reported. Medical History No medical history recorded. Gynecological HistoryNo gynecological history recorded. Obstetrics History GPAL:G 0 P 0 0 0 0 Past Encounters Encounter ID Performer Location Encounter Start Date Encounter Closed Date Diagnosis/Indication Diagnosis SNOMED-CT Code Diagnosis ICD10 Code Diagnosis IMO Codes Diagnosis Note [id number] EH DUFFY MD Main - [facility] [phone] 11/27/2023 15:09:20 11/27/2023 20:18:04 Abdominal pain 64743951 R10.9 Nausea 478030771 R11.0 Health Concerns Section Related Observation LastModified by Organization Detai ls LastModified Time None Recorded Concern Status LastModified by Organization Details LastModified Time None Recorded Advance Directives Directive None Recorded Payers Insurance Date Sequence Insurance Name Policy Number Policy Fuentes Covered Member ID Fuentes Member ID Guarantor Name 11/27/2023 1 [facility]INT [facility] - DOS ON OR AFTER 2022 - DUAL ELIGIBLE - PENITENTIARY OPTIONS AND ONE CARE (MEDICARE REPLACEMENT/ADV ANTAGE - HMO) Chantal Alvares [id number] Chantal Alvares Notes Date Note Type Note Provider Name and Address Organization Details Recorded Time 11/27/2023 text/html HPI: Reports having nausea x 1 week. Pt denies any vomiting. Pt had diarrhea a few days. Pt having abdominal pain.Per pt pain is above belly button. Intermittent. Pt subjective fever 2 days ago. Pt advised of disposition, agrees to [facility] referral for eval as not able to come into office. Confirmed contact information, allergies. ................. ................. ................. ................. ................. ................. ................. ................. ..... CRC Nurse Triage Notes (Meli Velarde): Chief Complaints: Nausea/Vomiting, Abdominal Pain Comments: CRC RN DID NTO NEED FURTHER INFO Danica Abdalla MD [address] [facility],[address], [place], [address], [employer] - [employer] 12/03/2023 16:22:35 OBGyn Episode No OBEpisode recorded.
--- OUTSIDE RECORDS SUMMARY | 2025-01-12 22:11 | XMS_ITS | Encounter Summary ---
Author Organization [employer] Address [address] [facility] 7 [place] [address] Care Team Providers Care Chef & Owner Name Role Phone Alyssa Campo MD Primary Care Provider [phone] Reason for Visit * Reason Onset Date Comments Referral 02/19/2024 Encounter Details Date Type Department Care Team ([facility] st Contact Info) Description 02/19/2024 Telephone [facility] MEDICINE [address] [place] [address] Alyssa Campo MD [address] [place] [address] Referral Social History Tobacco Use Types Packs/Day [...] encounter Miscellaneous Notes * Telephone Encounter - Amy Garcia - 03/03/2024 4:03 PM EST Tc from pt requesting status on message prior. * Telephone Encounter - Laron Mg - 02/25/2024 4:06 PM EST Tc from pt requesting status on message prior. * Telephone Encounter - Alejandra Bolivar - 02/19/2024 3:57 PM EST Tc from pt requesting a referral to endocrinology to [facility] in [place] pt didn't had fax number. Babs Watson MD Endocrinology [phone] documented in this encounter Plan of Treatment Upcoming Encounters Date Type Department Care Team (Late st Contact Info) Description 03/16/2025 3:15 PM EST Office Visit [facility] MED & PEDS [address] [place] [address] Alyssa Campo MD [address] [place] [address] documented as of this encounter Visit Diagnoses Not on filedocumented in this encounter Additional Health Concerns Assessment Noted Time PHQ-9 Depression Total Score: 2 09/10/19 24 3:40 PM EDT documented as of this encounter Care Teams Chef & Owner Relationship Specialty Start Date End Date Alyssa Campo MD [address] [place] [id number] PCP - General Family Medicine 02/09/18 documented as of this encounter
== END 2025-01-12 16:25 | disposition home or self-care (01) ==
LOC: HO.CHCLDS 16:24
PROVIDERS: PCP Pediatrics; Visit Provider Pediatrics
DX: Z77.120 Contact with and (suspected) exposure to mold (toxic) (principal)
CPT/HCPCS: 36415